=== PATIENT | female | born 1950 | race Caucasian/White ===

== ENCOUNTER → 2016-03-05 | Outpatient (CLI) | payer OTHER ==
[~2016-03-05] MED LIST: LIOT1TAB10 PO
== END | disposition home or self-care (01) ==
LOC: C.MAMM 10:04
PROVIDERS: ATTEND Family Medicine
DX: N95.8 Other specified menopausal and perimenopausal disorders (principal); E03.9 Hypothyroidism, unspecified; K90.0 Celiac disease

== ENCOUNTER 2016-05-14 09:21 | Emergency (ER) | payer OTHER ==
[~2016-05-14] VITALS: Ht 157.5 cm; Wt 56.4 kg
[2016-05-14 09:25] VITALS: TEMP 37; Ht 157.5 cm; Wt 56.4 kg
[2016-05-14] MEDS ORDERED: LIOT1TAB10 PO (09:47)
[2016-05-14] MEDS ORDERED: SODIUM CHLORIDE 0.9% 1000ML 1,000 ML IV STA (10:02)
[2016-05-14 10:23] LABS: BASO % 0.1 %; BASO ABS # 0.01 K/uL (0-0.2); COMPLETE YES; EOS % 0.4 %; HEMATOCRIT 41.5 % (37-47); IG% 0.3 %; LYMPH % 11.7 %; LYMPH ABS # 1.34 K/uL (1.2-3.4); MEAN CELL VOLUME 84.3 fL (80-100); MEAN CORPUSCULAR HEMOGLOBIN 28.3 pg (25-34); MEAN CORPUSCULAR HGB CONC 33.5 g/dl (32-36); MEAN PLATELET VOLUME 10.3 fL (7.4-10.4); MONO % 6.7 %; NEUT % 80.8 %; PLATELET COUNT 260 K/uL (130-400); RED BLOOD COUNT 4.92 M/uL (4.2-5.4); WHITE BLOOD COUNT 11.42 K/uL (4.8-10.8)
[2016-05-14 10:30] LABS: CREATININE 0.67 mg/dl (0.60-1.20); POTASSIUM 3.4 mmol/L (3.5-5.1)
[2016-05-14 10:33] LABS: ALB/GLOB RATIO 0.9 (0.9-2)
--- NOTE | 2016-05-14 12:00 | EMERGENCY ROOM VISIT NOTE ---
ED Visit Note First contact with patient: 09:43 I have seen and examined this patient with Thea Lehman and generally agree with the treatment plan as discussed. Current/Historical Medications Scheduled Liothyronine Sodium (Cytomel), 75 MCG PO DAILY Allergies Uncoded Allergies: TEGRETOL, IODINE (Allergy, Unknown, 04/08/02) Vital Signs Date Time Temp Pulse Resp B/P Pulse Ox O2 Delivery O2 Flow Rate FiO2 05/14/16 10:42 84 16 153/110 99 Room Air 05/14/16 09:25 37.0 98 20 171/102 98 Room Air Laboratory Results 05/14/16 09:40 Red Blood Count 4.92, Mean Corpuscular Volume 84.3, Mean Corpuscular Hemoglobin 28.3, Mean Corpuscular Hemoglobin Concent 33.5, Mean Platelet Volume 10.3, Neutrophils (%) (Auto) 80.8, Lymphocytes (%) (Auto) 11.7, Monocytes (%) (Auto) 6.7, Eosinophils (%) (Auto) 0.4, Basophils (%) (Auto) 0.1, Neutrophils # (Auto) 9.23, Lymphocytes # (Auto) 1.34, Monocytes # (Auto) 0.76, Eosinophils # (Auto) 0.05, Basophils # (Auto) 0.01 05/14/16 09:40 Test 05/14/16 09:40 White Blood Count 11.42 K/uL (4.8-10.8) Red Blood Count 4.92 M/uL (4.2-5.4) Hemoglobin 13.9 g/dL (12.0-16.0) Hematocrit 41.5 % (37-47) Mean Corpuscular Volume 84.3 fL (80-100) Mean Corpuscular Hemoglobin 28.3 pg (25-34) Mean Corpuscular Hemoglobin Concent 33.5 g/dl (32-36) Platelet Count 260 K/uL (130-400) Mean Platelet Volume 10.3 fL (7.4-10.4) Neutrophils (%) (Auto) 80.8 % Lymphocytes (%) (Auto) 11.7 % Monocytes (%) (Auto) 6.7 % Eosinophils (%) (Auto) 0.4 % Basophils (%) (Auto) 0.1 % Neutrophils # (Auto) 9.23 K/uL (1.4-6.5) Lymphocytes # (Auto) 1.34 K/uL (1.2-3.4) Monocytes # (Auto) 0.76 K/uL (0.11-0.59) Eosinophils # (Auto) 0.05 K/uL (0-0.5) Basophils # (Auto) 0.01 K/uL (0-0.2) RDW Standard Deviation 40.7 fL (36.4-46.3) RDW Coefficient of Variation 13.3 % (11.5-14.5) Immature Granulocyte % (Auto) 0.3 % Immature Granulocyte # (Auto) 0.03 K/uL (0.00-0.02) Anion Gap 13.0 mmol/L (3-11) Est Creatinine Clear Calc Drug Dose 64.5 ml/min Estimated GFR () 105.4 Estimated GFR (Non- 91.0 BUN/Creatinine Ratio 33.0 (10-20) Calcium Level 10.0 mg/dl (8.5-10.1) Total Bilirubin 1.0 mg/dl (0.2-1) Aspartate Amino Transf (AST/SGOT) 22 U/L (15-37) Alanine Aminotransferase (ALT/SGPT) 31 U/L (12-78) Alkaline Phosphatase 68 U/L (45-117) Total Protein 7.7 gm/dl (6.4-8.2) Albumin 3.6 gm/dl (3.4-5.0) Globulin 4.1 gm/dl (2.5-4.0) Albumin/Globulin Ratio 0.9 (0.9-2) Lipase 82 U/L (73-393) Medications Administered Medications (Trade) Dose Ordered Sig/Catina Route Start Time Stop Time Status Last Admin Dose Admin Sodium Chloride (Nss 1000ml) 1,000 ml @ 999 mls/hr Q1H1M STAT IV 05/14/16 10:02 05/14/16 11:02 DC 05/14/16 10:02 999 MLS/HR Departure Information Referrals Leon Cohen M.D. (PCP) Patient Instructions My [facility]
[2016-05-14] MEDS ORDERED: MoRPHine SULFATE 4 MG/ML 1 ML CARP\\VIAL IV STA (13:21)
--- NOTE | 2016-05-14 14:25 | EMERGENCY ROOM VISIT NOTE ---
History First contact with patient: 09:43 Chief Complaint: RECTAL BLEEDING Stated Complaint: RECTAL BLEEDING Nursing Triage Summary: PT HERE WITH RECTAL BLEEDING SINCE FRIDAY INTERMITTENTLY. PT STATES HAVING SOME LOW ABD PAINS. PT STATES BLOOD IS BRIGHT RED MIXED WITH STOOL, INITIAL CLOTS PT STATES FEELING WEAK History of Present Illness The patient is a 65 year old female who presents to the Emergency Room with complaints of rectal bleeding, diarrhea and abdominal pain. The patient reports that 2 days ago, she developed a sudden urgency to have a bowel movement. She states that when she did have a bowel movement, there was a clot of blood mixed in with the stool. She states that she had several more episodes of diarrhea that day, which then subsided. She reports that yesterday , she did not have a bowel movement. She states that today, her diarrhea returned and she has had pain with her bowel movements. She also has had a small amount of bright red blood mixed in with her stools. She states that her legs feel very weak and she has intermittent pain in her lower abdomen. She rates her overall discomfort a 1/10 at this time but states the pain worsens at times. She denies any previous episodes of similar symptoms. She does report a history of celiac disease but denies any other history of abdominal surgery. The patient's only recent antibiotic use was one dose of doxycycline earlier this month. She denies any recent travel. She does report she ate raw sushi a few days ago, prior to the onset of symptoms. She denies any unusual water sources. She denies nausea, vomiting, fevers/chills or urinary symptoms. Review of Systems A complete 10-point Review of Systems was discussed with the patient, with pertinent positives and negatives listed in the History of Present Illness. All remaining Review of Systems questions can be considered negative unless otherwise specified. Social History Smoking Status: Never Smoker Current/Historical Medications Scheduled Liothyronine Sodium (Cytomel), 75 MCG PO DAILY Allergies Uncoded Allergies: TEGRETOL, IODINE (Allergy, Unknown, 04/08/02) Physical Exam Vital Signs Date Time Temp Pulse Resp B/P Pulse Ox O2 Delivery O2 Flow Rate FiO2 05/14/16 16:16 82 18 158/80 98 05/14/16 15:15 77 20 160/92 96 Room Air 05/14/16 13:39 82 18 178/106 97 Room Air 05/14/16 12:28 85 157/101 99 Room Air 05/14/16 10:42 84 16 153/110 99 Room Air 05/14/16 09:25 37.0 98 20 171/102 98 Room Air Physical Exam VITALS: Vitals are noted on the nurse's note and reviewed by myself. Vital signs stable. GENERAL: This is a 65-year-old female, in no acute distress, nondiaphoretic, well-developed well-nourished. SKIN: Capillary reflex less than 2 seconds. HEENT: Normocephalic. PERRLA. EOMI. Nares patent. Mucous membranes moist. Neck is supple without nuchal rigidity. HEART: Regular rate and rhythm without murmurs gallops or rubs. LUNGS: Clear to auscultation bilaterally without wheezes, rales or rhonchi. ABDOMEN: Positive bowel sounds x 4. Soft, mild tenderness of the left lower quadrant. No guarding or rebound tenderness. RECTAL: Slightly heme positive light brown stool. Normal rectal tone. NEURO: Patient was alert and oriented to person place and time. Medical Decision & Procedures ER Provider Diagnostic Interpretation: ABDOMEN AND PELVIS CT WITH ORAL CONTRAST CT DOSE: 263.21 mGy.cm HISTORY: Pain ll. Pain, diarrhea, rectal bleeding TECHNIQUE: Multiaxial CT images of the abdomen and pelvis were performed following the use of oral contrast. COMPARISON STUDY: None. FINDINGS: Lung bases are clear.. abdomen and pelvis compromise as amount of oral contrast is restricted. Overall configuration of liver is unremarkable. Gallbladder is negative for distention. There is a 14 x 7 cm calcification lower pole left kidney. Kidneys negative for hydronephrosis or obstructing urinary tract calculus. Several upper abdominal varicosities are present. Pancreas is fatty replaced. Bowel pattern is considered nonobstructive. Bladder is midline. There is a somewhat serpiginous fibroid-type uterus. Multiple calcified fibroids are present throughout. There appears to be a component of rectal wall thickening circumferentially. There is mild perirectal infiltrative change. There is moderate infiltrative change to the levator sling bilaterally and to lesser extent presacral soft tissues. Colonoscopy is suggested to exclude a nonspecific proctitis or inflammatory process. IMPRESSION: 1. Limited exam as the amount of oral contrast is limited and shows only partial opacification of the colon. 2. Findings suggestive of potential annular lesion of the low sigmoid and rectal regions 3. This associated with perirectal infiltrative change, mild infiltrative change of the levator sling, as well as presacral soft tissues. 4. Colonoscopy is suggested to exclude an inflammatory or neoplastic process. 5. The study is otherwise negative within the limitations of limited oral and absent intravenous contrast enhancement Laboratory Results 05/14/16 09:40 Red Blood Count 4.92, Mean Corpuscular Volume 84.3, Mean Corpuscular Hemoglobin 28.3, Mean Corpuscular Hemoglobin Concent 33.5, Mean Platelet Volume 10.3, Neutrophils (%) (Auto) 80.8, Lymphocytes (%) (Auto) 11.7, Monocytes (%) (Auto) 6.7, Eosinophils (%) (Auto) 0.4, Basophils (%) (Auto) 0.1, Neutrophils # (Auto) 9.23, Lymphocytes # (Auto) 1.34, Monocytes # (Auto) 0.76, Eosinophils # (Auto) 0.05, Basophils # (Auto) 0.01 05/14/16 09:40 Test 05/14/16 09:40 05/14/16 15:15 White Blood Count 11.42 K/uL (4.8-10.8) Red Blood Count 4.92 M/uL (4.2-5.4) Hemoglobin 13.9 g/dL (12.0-16.0) Hematocrit 41.5 % (37-47) Mean Corpuscular Volume 84.3 fL (80-100) Mean Corpuscular Hemoglobin 28.3 pg (25-34) Mean Corpuscular Hemoglobin Concent 33.5 g/dl (32-36) Platelet Count 260 K/uL (130-400) Mean Platelet Volume 10.3 fL (7.4-10.4) Neutrophils (%) (Auto) 80.8 % Lymphocytes (%) (Auto) 11.7 % Monocytes (%) (Auto) 6.7 % Eosinophils (%) (Auto) 0.4 % Basophils (%) (Auto) 0.1 % Neutrophils # (Auto) 9.23 K/uL (1.4-6.5) Lymphocytes # (Auto) 1.34 K/uL (1.2-3.4) Monocytes # (Auto) 0.76 K/uL (0.11-0.59) Eosinophils # (Auto) 0.05 K/uL (0-0.5) Basophils # (Auto) 0.01 K/uL (0-0.2) RDW Standard Deviation 40.7 fL (36.4-46.3) RDW Coefficient of Variation 13.3 % (11.5-14.5) Immature Granulocyte % (Auto) 0.3 % Immature Granulocyte # (Auto) 0.03 K/uL (0.00-0.02) Anion Gap 13.0 mmol/L (3-11) Est Creatinine Clear Calc Drug Dose 64.5 ml/min Estimated GFR () 105.4 Estimated GFR (Non- 91.0 BUN/Creatinine Ratio 33.0 (10-20) Calcium Level 10.0 mg/dl (8.5-10.1) Total Bilirubin 1.0 mg/dl (0.2-1) Aspartate Amino Transf (AST/SGOT) 22 U/L (15-37) Alanine Aminotransferase (ALT/SGPT) 31 U/L (12-78) Alkaline Phosphatase 68 U/L (45-117) Total Protein 7.7 gm/dl (6.4-8.2) Albumin 3.6 gm/dl (3.4-5.0) Globulin 4.1 gm/dl (2.5-4.0) Albumin/Globulin Ratio 0.9 (0.9-2) Lipase 82 U/L (73-393) Urine Color YELLOW Urine Appearance CLOUDY (CLEAR) Urine pH 5.5 (4.5-7.5) Urine Specific Bath 1.012 (1.000-1.030) Urine Protein NEG (NEG) Urine Glucose (UA) NEG (NEG) Urine Ketones 3+ (NEG) Urine Occult Blood TRACE (NEG) Urine Nitrite NEG (NEG) Urine Bilirubin NEG (NEG) Urine Urobilinogen NEG (NEG) Urine Leukocyte Esterase LARGE (NEG) Urine WBC (Auto) >30 /hpf (0-5) Urine RBC (Auto) 0-4 /hpf (0-4) Urine Hyaline Casts (Auto) 10-30 /lpf (0-5) Urine Epithelial Cells (Auto) >30 /lpf (0-5) Urine Bacteria (Auto) 1+ (NEG) Urine Renal Epithelial Cells /lpf (0-5) Urine Mucus PRESENT (NONE PRSENT) Date/Time Source Procedure Growth Status 05/14/16 14:00 Stool WBC Smear - Final Complete Medications Administered Medications (Trade) Dose Ordered Sig/Catina Route Start Time Stop Time Status Last Admin Dose Admin Sodium Chloride (Nss 1000ml) 1,000 ml @ 999 mls/hr Q1H1M STAT IV 05/14/16 10:02 05/14/16 11:02 DC 05/14/16 10:02 999 MLS/HR Morphine Sulfate (MoRPHine SULFATE INJ) 4 mg NOW STAT IV 05/14/16 13:21 05/14/16 13:22 DC 05/14/16 13:36 4 MG Medical Decision Differential diagnosis includes polyp, malignancy, diverticulitis, colitis, among others. The patient was evaluated as above. Labs were drawn and IV access was obtained. Imaging studies were performed and read by radiology as above. The patient was medicated with 4 mg morphine IV and 1 L normal saline solution. The patient was reassessed multiple times during their stay in the emergency department and remained in stable condition. The patient is a 65-year-old female who presents today complaining of rectal bleeding and occasional lower abdominal pain. Labs revealed mild leukocytosis with no concerning anemia. Urinalysis was suggestive of infection versus contamination and will be sent for culture. Stool studies were obtained and cultures pending. The patient has a significant allergy to IV contrast, a CT scan was performed with only oral contrast at the recommendation of the dictaphone technician. This was read by radiology and was concerning for a possible annular lesion. They recommended colonoscopy to differentiate between malignancy versus inflammatory findings. The patient was informed of these findings. I did speak with Gary Vora, however the patient is apparently now a patient of [facility]. The information was given to Dr. Salinas, who will arrange follow up. The patient was instructed to return here sooner if she has worsening of her symptoms or develops any new/concerning symptoms. Based on the patient's presentation, lab results, and imaging studies, I feel the patient is stable for outpatient treatment. The patient's case was reviewed with Dr. Francisco, ED attending physician, who agreed with my assessment and treatment plan. Discharge instructions were reviewed with the patient. The patient verbalized understanding of my assessment and treatment plan and was discharged home in good condition. Impression Primary Impression: GI bleed Departure Information Dispostion Home / Self-Care Condition GOOD Referrals Leon Cohen M.D. (PCP) Yeyo Salinas M.D. Patient Instructions My [facility] Additional Instructions Call Dr. Salinas's office on morning if you do not hear from them. For pain control, you can use the following [id number] medicines (if >12 yo): - Regular strength (325mg/tab) Tylenol (acetaminophen) 2 tabs every 4-6 hours as needed. Do not exceed 12 tablets in a 24 hour period. Avoid taking more than 4 grams (4000 mg) of Tylenol per day. This includes any other sources of acetaminophen you may take on a regular basis. - Regular strength (200 mg/tab) Advil (ibuprofen) 1-2 tabs every 4-6 hours as needed. Do not exceed a dose of 3200 mg per day. As with any visit to the emergency Department, you should follow-up with your primary care provider. Return to the emergency department with worsening pain, larger amounts of blood , vomiting or any other new/concerning symptoms.
--- NOTE | 2016-05-14 14:32 | DIAGNOSTIC IMAGING REPORT ---
ABDOMEN AND PELVIS CT WITH ORAL CONTRAST CT DOSE: 263.21 mGy.cm HISTORY: Pain ll. Pain, diarrhea, rectal bleeding TECHNIQUE: Multiaxial CT images of the abdomen and pelvis were performed following the use of oral contrast. COMPARISON STUDY: None. FINDINGS: Lung bases are clear.. abdomen and pelvis compromise as amount of oral contrast is restricted. Overall configuration of liver is unremarkable. Gallbladder is negative for distention. There is a 14 x 7 cm calcification lower pole left kidney. Kidneys negative for hydronephrosis or obstructing urinary tract calculus. Several upper abdominal varicosities are present. Pancreas is fatty replaced. Bowel pattern is considered nonobstructive. Bladder is midline. There is a somewhat serpiginous fibroid-type uterus. Multiple calcified fibroids are present throughout. There appears to be a component of rectal wall thickening circumferentially. There is mild perirectal infiltrative change. There is moderate infiltrative change to the levator sling bilaterally and to lesser extent presacral soft tissues. Colonoscopy is suggested to exclude a nonspecific proctitis or inflammatory process. IMPRESSION: 1. Limited exam as the amount of oral contrast is limited and shows only partial opacification of the colon. 2. Findings suggestive of potential annular lesion of the low sigmoid and rectal regions 3. This associated with perirectal infiltrative change, mild infiltrative change of the levator sling, as well as presacral soft tissues. 4. Colonoscopy is suggested to exclude an inflammatory or neoplastic process. 5. The study is otherwise negative within the limitations of limited oral and absent intravenous contrast enhancement Electronically signed by: Mikey Stauffer M.D. 05/14/2016 2:31 PM Dictated Date/Time: 05/14/2016 2:25 PM
[2016-05-14 15:28] LABS: URINE APPEARANCE CLOUDY (CLEAR); URINE BILIRUBIN NEG (NEG); URINE COLOR YELLOW; URINE EPITHELIAL CELL AUTO >30 /lpf (0-5); URINE NITRITE NEG (NEG); URINE PH 5.5 (4.5-7.5); URINE SPECIFIC GRAVITY 1.012 (1.000-1.030); UROBILINOGEN NEG (NEG)
[2016-05-14 15:34] LABS: MANUAL MICROSCOPIC REQUIRED? NO; REVIEW REQ? YES
[2016-05-14 15:47] LABS: URINE MUCUS PRESENT (NONE PRSENT)
[2016-05-14 15:48] LABS: ZZUR CULT IF INDIC CLEAN CATCH YES
[2016-05-14 16:16] VITALS: BP 158/80; PULSE 82; O2SAT 98
== END 2016-05-14 16:17 | disposition home or self-care (01) ==
LOC: C.EDB 09:28
DX: K92.2 Gastrointestinal hemorrhage, unspecified (principal); R10.9 Unspecified abdominal pain; Z79.899 Other long term (current) drug therapy

== ENCOUNTER 2021-06-17 03:30 | Observation (INO) ==
[2021-06-17] MEDS ORDERED: SODIUM CHLORIDE 0.9% 1000ML 1,000 ML IV SCH ×2 (04:00→04:30)
[2021-06-17 04:22] LABS: Basophils # (auto) 0.02 K/uL (0-0.2); Basophils % (auto) 0.3 %; Eosinophils % (auto) 3.1 %; Hematocrit (blood only) 41.6 % (37-47); Hemoglobin 14.2 g/dL (12.0-16.0); Immature Granulocytes # (auto) 0.01 K/uL (0.00-0.02); Immature Granulocytes % (auto) 0.2 %; Mean Corpuscular Hemoglobin 29.2 pg (25-34); Mean Corpuscular Hgb Conc 34.1 g/dL (32-36); Mean Corpuscular Volume 85.4 fL (80-100); Monocytes % (auto) 9.2 %; Neutrophils # (auto) 2.69 K/uL (1.4-6.5); Neutrophils % (auto) 41.2 %; Platelet Count 275 K/uL (130-400); RDW Coefficient of Variation 13.8 % (11.5-14.5); RDW Standard Deviation 43.4 fL (36.4-46.3); Red Blood Count 4.87 M/uL (4.2-5.4); White Blood Count 6.52 K/uL (4.8-10.8)
--- NOTE | 2021-06-17 04:32 | Emergency Department Note ---
History of Present Illness General Chief complaint: Abdominal Pain Stated complaint: ABD PAIN,NERVE PAIN Time Seen by Provider: 06/17/21 03:41 Source: patient Mode of arrival: ambulatory Limitations: no limitations History of Present Illness Provider complaint: Abdominal pain, tooth ache Onset (ago): week(s) Maximum Pain Intensity: 10 Treatments prior to arrival: none This is a 70-year-old female presents emergency department complaining of toothache, abdominal pain, and recent tick bite. She states over the last year she has been dealing with a tooth that needed a repair and root canal. She states the pain been worse recently and she finally has an appointment scheduled for June 27 with someone in [place]. Patient states over the last several weeks she has also had intermittent abdominal pain and bloating. She states recently in the last several days she also noticed a tick bite to her abdomen and feels increased pain in this region in addition. Patient states she does have a history of thyroid disease and takes medication. Patient states she not taking any other medication for pain. She has not sought any treatment for her abdominal discomfort. Patient states her bowel movements alternate between diarrhea and constipation. She denies any change in urine, fevers or chills, recent cough or cold symptoms. Patient denies any dietary changes or change in activity. Patient states she is supposed to be taking medication for blood pressure but does not. Patient states she is concerned she "has blood poisoning". Pt seen during a time of high acuity and national emergency pandemic while wearing PPE. Home Medications Medication Instructions Recorded Confirmed Type liothyronine 25 mcg tablet 25 mcg PO TID 06/16/18 06/17/21 History (Cytomel) Bound Mineral 1 tab PO QAM 06/17/21 06/17/21 History Cardio-Plus 3 tab PO QAM 06/17/21 06/17/21 History Glutathione Capsule 1 cap PO QAM 06/17/21 06/17/21 History Lugol's Oil 1 cap PO QAM 06/17/21 06/17/21 History Nitric Oxide Capsule 2 cap PO QAM 06/17/21 06/17/21 History Vitamin D3 Drops 2 drp PO QAM 06/17/21 06/17/21 History ascorbic acid (vitamin C) 1,000 mg 0 mg PO QAM 06/17/21 06/17/21 History tablet (Vitamin C) cyanocobalamin (vitamin B-12) 0 mcg PO QAM 06/17/21 06/17/21 History 1,000 mcg tablet (Vitamin B-12) magnesium 250 mg tablet 0 mg PO QAM 06/17/21 06/17/21 History vitamin B complex 1 tab PO QAM 06/17/21 06/17/21 History Allergies Allergy/AdvReac Type Severity Reaction Status Date / Time gluten Allergy Hives Unverified 06/17/21 06:49 ibuprofen AdvReac Hypertensio Unverified 06/17/21 06:49 n TEGRETOL, IODINE Allergy Severe Anaphylaxis Uncoded 06/17/21 06:49 Past Med/Surg History Medical History (Updated 06/18/21 @ 07:22 by Lori Blanco DO) History of breast cancer s/p lumpectomy History of Cinda thyroiditis Hypertension Tonsillitis Surgical History (Updated 06/17/21 @ 06:37 by Sulema Maier DO) 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 History of lumpectomy Family History Other No significant family history Social History (Updated 06/17/21 @ 06:38 by Sulema Maier DO) Smoking Status: Never smoker Second Hand Exposure: No; Hx Alcohol Use: No Hx Substance Use: No Preferred Language: Ethiopian Communication Ability: Effective 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 Required: No Beliefs That Will Affect Care: None Current Living Situation: Spouse Feels Safe at Home: Yes Assistive Devices: None Review of Systems A total of 10 systems reviewed and were otherwise negative All systems reviewed & are unremarkable except as noted in HPI & below Physical Exam Vital Signs Vital Signs - 24 hr 06/17/21 03:35 06/17/21 04:06 06/17/21 05:30 Temperature 36.0 C L Temperature Source Temporal Artery Scan Pulse Rate 101 H Pulse Rate [Finger] 65 Pulse Rate from SpO2 Sensor Respiratory Rate 18 18 Respiratory Effort / Characteristics Non-Labored Spontaneous Non-Labored Spontaneous Respiratory Depth Normal Respiratory Pattern Regular Blood Pressure 202/123 H Blood Pressure [Right Arm] 201/116 H Blood Pressure Mean 149 Blood Pressure Mean [Right Arm] 144 Pulse Oximetry 98 99 98 Oxygen Delivery Method Room Air Room Air Room Air Sepsis Recent Fever Within 48 Hours No Sepsis New/Unexplained Change in Mental Status No Sepsis Action Taken by Nursing No Action Required 06/17/21 06:00 06/17/21 06:10 06/17/21 06:21 Temperature Temperature Source Pulse Rate 65 63 59 L Pulse Rate [Finger] Pulse Rate from SpO2 Sensor 66 61 Respiratory Rate 20 16 17 Respiratory Effort / Characteristics Respiratory Depth Respiratory Pattern Blood Pressure 191/112 H 206/121 H 198/103 H Blood Pressure [Right Arm] Blood Pressure Mean 138 149 134 Blood Pressure Mean [Right Arm] Pulse Oximetry 98 98 Oxygen Delivery Method Sepsis Recent Fever Within 48 Hours Sepsis New/Unexplained Change in Mental Status Sepsis Action Taken by Nursing 06/17/21 06:30 06/17/21 06:40 Temperature Temperature Source Pulse Rate 73 67 Pulse Rate [Finger] Pulse Rate from SpO2 Sensor Respiratory Rate 18 27 H Respiratory Effort / Characteristics Respiratory Depth Respiratory Pattern Blood Pressure 206/124 H 172/101 H Blood Pressure [Right Arm] Blood Pressure Mean 151 124 Blood Pressure Mean [Right Arm] Pulse Oximetry Oxygen Delivery Method Sepsis Recent Fever Within 48 Hours Sepsis New/Unexplained Change in Mental Status Sepsis Action Taken by Nursing GENERAL: alert, well appearing, well nourished, no distress, non-toxic EYE EXAM: normal conjunctiva, PERRL and EOM's grossly intact OROPHARYNX: no exudate, no erythema, lips, buccal mucosa, and tongue normal and mucous membranes are moist NECK: supple, no nuchal rigidity, no adenopathy, non-tender LUNGS: Clear to auscultation. Normal chest wall mechanics, no w/r/r HEART: no murmurs, S1 normal and S2 normal ABDOMEN: abdomen soft, non-tender, normo-active bowel sounds, no masses, no rebound or guarding. BACK: Back is symmetrical on inspection and there is no deformity, no midline tenderness, no CVA tenderness. SKIN: no rashes and no bruising UPPER EXTREMITIES: upper extremities are grossly normal. FROM, nml pulses b/l. LOWER EXTREMITIES: No pitting edema. FROM, nml pulses b/l. NEURO EXAM: Normal sensorium, cranial nerves II-XII grossly intact, normal speech, no gross weakness of arms, no gross weakness of legs. Gross sensation intact. Course Administered Medications Doxycycline Hyclate (Doxycycline Hyclate 100 Mg Cap) 100 mg PO BID [facility]; Protocol Stop: 06/27/21 20:59 Last Admin: 06/17/21 20:49 Dose: 100 mg Documented by: [id number] Hydralazine HCl (Hydralazine 10 Mg Tab) 10 mg PO Q6H PRN PRN Reason: hypertension Stop: 07/17/21 09:04 Last Admin: 06/17/21 19:54 Dose: 10 mg Documented by: [id number] Admin: 06/17/21 09:28 Dose: 10 mg Documented by: [id number] Hydrochlorothiazide (Hydrochlorothiazide 25 Mg Tab) 25 mg PO QAM [facility] Stop: 07/17/21 09:29 Last Admin: 06/17/21 09:28 Dose: 25 mg Documented by: [id number] Liothyronine Sodium (Liothyronine Sodium 25 Mcg Tab) 25 mcg PO QPM [facility] Stop: 07/17/21 20:59 Last Admin: 06/17/21 20:50 Dose: Not Given Documented by: [id number] Liothyronine Sodium (Liothyronine Sodium 25 Mcg Tab) [facility] [place] Stop: 07/17/21 09:29 Last Admin: 06/17/21 11:11 Dose: Not Given Documented by: [id number] Ondansetron HCl (Ondansetron Inj 2 Mg/Ml 2 Ml Vial) 4 mg IV Q6H PRN PRN Reason: Nausea Stop: 07/17/21 09:04 Last Admin: 06/17/21 21:32 Dose: 4 mg Documented by: [id number] Discontinued Medications Hydralazine HCl (Hydralazine Hcl 25 Mg Tab) 25 mg PO NOW STA Stop: 06/17/21 06:12 Last Admin: 06/17/21 06:20 Dose: 25 mg Documented by: [id number] Sodium Chloride (Nss 1000ml) 1,000 mls @ 999 mls/hr IV .Q1H1M [facility] Stop: 06/17/21 05:00 Last Infusion: 06/17/21 04:57 Dose: 0 mls/hr Documented by: [id number] Admin: 06/17/21 03:59 Dose: 999 mls/hr Documented by: [id number] Sodium Chloride (Nss 1000ml) 1,000 mls @ 125 mls/hr IV .Q8H [facility] Stop: 07/17/21 04:29 Last Infusion: 06/17/21 10:09 Dose: 0 mls/hr Documented by: [id number] Infusion: 06/17/21 08:31 Dose: 0 mls/hr Documented by: [id number] Admin: 06/17/21 04:51 Dose: 125 mls/hr Documented by: [id number] Doxycycline Hyclate 100 mg/ (Dextrose) 110 mls @ 50 mls/hr IV NOW STA Stop: 06/17/21 07:29 Last Infusion: 06/17/21 08:31 Dose: 0 mls/hr Documented by: [id number] Admin: 06/17/21 06:20 Dose: 50 mls/hr Documented by: [id number] Labetalol HCl (Labetalol Hcl Iv 5 Mg/Ml 20ml) 5 mg IV NOW STA Stop: 06/17/21 04:38 Last Admin: 06/17/21 04:51 Dose: 5 mg Documented by: [id number] Cosigned by: [id number] Labetalol HCl (Labetalol Hcl Iv 5 Mg/Ml 20ml) 5 mg IV NOW STA Stop: 06/17/21 05:26 Last Admin: 06/17/21 05:31 Dose: 5 mg Documented by: [id number] Cosigned by: [id number] Nifedipine (Nifedipine Extended Rel 30 Mg Tabcr) 60 mg PO NOW STA Stop: 06/17/21 08:28 Last Admin: 06/17/21 09:29 Dose: 60 mg Documented by: [id number] Potassium Chloride (Potassium Chloride Crtab 20 Meq Tabcr) 40 meq PO NOW STA Stop: 06/17/21 05:24 Last Admin: 06/17/21 05:32 Dose: 40 meq Documented by: [id number] Medical Decision Making Differential Diagnosis Differential diagnoses includes but is not limited to gastritis, peptic ulcer disease, GERD, gallbladder disease, pancreatitis, small bowel obstruction, acute coronary syndrome, pericarditis, ischemic bowel, irritable bowel disease, irritable bowel syndrome, appendicitis, diverticulitis, malignancy, hernia, urinary tract infection, torsion, [/ectopic (if female)], perforation, trauma, infectious. Medical Records Attestation: I reviewed the patient's medical records. Home Medications Current Medication List: was personally reviewed by me Laboratory Data Attestation: I reviewed the patient's lab results. Result diagrams: 06/17/21 03:50 06/17/21 03:50 Lab Results 06/17/21 06/17/21 06/17/21 Range/Units 03:28 03:50 03:50 WBC 6.52 (4.8-10.8) K/uL RBC 4.87 (4.2-5.4) M/uL Hgb 14.2 (12.0-16.0) g/dL Hct 41.6 (37-47) % MCV 85.4 (80-100) fL MCH 29.2 (25-34) pg MCHC 34.1 (32-36) g/dL RDW Std Deviation 43.4 (36.4-46.3) fL RDW Coeff of Kyle 13.8 (11.5-14.5) % Plt Count 275 (130-400) K/uL MPV 10.0 (7.4-10.4) fL Immature Gran % (Auto) 0.2 % Neut % (Auto) 41.2 % Lymph % (Auto) 46.0 % Haakon % (Auto) 9.2 % Eos % (Auto) 3.1 % Baso % (Auto) 0.3 % Neut # (Auto) 2.69 (1.4-6.5) K/uL Lymph # (Auto) 3.00 (1.2-3.4) K/uL Haakon # (Auto) 0.60 H (0.11-0.59) K/uL Eos # (Auto) 0.20 (0-0.5) K/uL Baso # (Auto) 0.02 (0-0.2) K/uL Immature Gran # (Auto) 0.01 (0.00-0.02) K/uL Sodium (136-145) mmol/L Potassium (3.5-5.1) mmol/L Chloride (98-107) mmol/L Carbon Dioxide (21-32) mmol/L Anion Gap (3-11) BUN (6-23) mg/dl Creatinine (0.6-1.2) mg/dl Est Cr Clr Drug Dosing ml/min Est GFR ( Amer) ml/min Est GFR (Non-Af Amer) ml/min BUN/Creatinine Ratio (10-20) Glucose (70-99(Fasting)) mg/dl Lactate (0.4-2.0) mmol/L Calcium (8.5-10.1) mg/dl Magnesium (1.7-2.4) mg/dl Total Bilirubin (0.2-1.0) mg/dl AST (13-39) U/L ALT (7-52) U/L Alkaline Phosphatase (34-104) U/L Troponin I High Sens Cancelled Total Protein (6.0-8.3) gm/dl Albumin (3.4-5.0) gm/dl Globulin (2.5-4.0) gm/dl Albumin/Globulin Ratio (0.9-2) Urine Color Urine Appearance (Clear) Urine pH (4.5-7.5) Ur Specific Simpson (1.000-1.030) Urine Protein (Negative) Urine Glucose (UA) (Negative) Urine Ketones (Negative) Urine Blood (Negative) Urine Nitrite (Negative) Urine Bilirubin (Negative) Urine Urobilinogen (Negative) Ur Leukocyte Esterase (Negative) Lyme Disease IgG Ab (Negative) Lyme Disease IgM Ab (Negative) SARS-CoV-2, RNA, NAAT NEGATIVE (NEGATIVE) 06/17/21 06/17/21 06/17/21 Range/Units 03:50 03:50 04:03 WBC (4.8-10.8) K/uL RBC (4.2-5.4) M/uL Hgb (12.0-16.0) g/dL Hct (37-47) % MCV (80-100) fL MCH (25-34) pg MCHC (32-36) g/dL RDW Std Deviation (36.4-46.3) fL RDW Coeff of Kyle (11.5-14.5) % Plt Count (130-400) K/uL MPV (7.4-10.4) fL Immature Gran % (Auto) % Neut % (Auto) % Lymph % (Auto) % Haakon % (Auto) % Eos % (Auto) % Baso % (Auto) % Neut # (Auto) (1.4-6.5) K/uL Lymph # (Auto) (1.2-3.4) K/uL Haakon # (Auto) (0.11-0.59) K/uL Eos # (Auto) (0-0.5) K/uL Baso # (Auto) (0-0.2) K/uL Immature Gran # (Auto) (0.00-0.02) K/uL Sodium 140 (136-145) mmol/L Potassium 3.3 L (3.5-5.1) mmol/L Chloride 104 (98-107) mmol/L Carbon Dioxide 28 (21-32) mmol/L Anion Gap 8 (3-11) BUN 22 (6-23) mg/dl Creatinine 0.72 (0.6-1.2) mg/dl Est Cr Clr Drug Dosing 53.3 ml/min Est GFR ( Amer) 97.0 ml/min Est GFR (Non-Af Amer) 83.7 ml/min BUN/Creatinine Ratio 30.6 H (10-20) Glucose 96 (70-99(Fasting)) mg/dl Lactate 0.7 (0.4-2.0) mmol/L Calcium 9.8 (8.5-10.1) mg/dl Magnesium 2.4 (1.7-2.4) mg/dl Total Bilirubin 0.6 (0.2-1.0) mg/dl AST 36 (13-39) U/L ALT 41 (7-52) U/L Alkaline Phosphatase 83 (34-104) U/L Troponin I High Sens 23.7 H Total Protein 7.7 (6.0-8.3) gm/dl Albumin 4.6 (3.4-5.0) gm/dl Globulin 3.1 (2.5-4.0) gm/dl Albumin/Globulin Ratio 1.5 (0.9-2) Urine Color Urine Appearance (Clear) Urine pH (4.5-7.5) Ur Specific Simpson (1.000-1.030) Urine Protein (Negative) Urine Glucose (UA) (Negative) Urine Ketones (Negative) Urine Blood (Negative) Urine Nitrite (Negative) Urine Bilirubin (Negative) Urine Urobilinogen (Negative) Ur Leukocyte Esterase (Negative) Lyme Disease IgG Ab Negative (Negative) Lyme Disease IgM Ab Positive A (Negative) SARS-CoV-2, RNA, NAAT (NEGATIVE) 06/17/21 Range/Units 05:15 WBC (4.8-10.8) K/uL RBC (4.2-5.4) M/uL Hgb (12.0-16.0) g/dL Hct (37-47) % MCV (80-100) fL MCH (25-34) pg MCHC (32-36) g/dL RDW Std Deviation (36.4-46.3) fL RDW Coeff of Kyle (11.5-14.5) % Plt Count (130-400) K/uL MPV (7.4-10.4) fL Immature Gran % (Auto) % Neut % (Auto) % Lymph % (Auto) % Haakon % (Auto) % Eos % (Auto) % Baso % (Auto) % Neut # (Auto) (1.4-6.5) K/uL Lymph # (Auto) (1.2-3.4) K/uL Haakon # (Auto) (0.11-0.59) K/uL Eos # (Auto) (0-0.5) K/uL Baso # (Auto) (0-0.2) K/uL Immature Gran # (Auto) (0.00-0.02) K/uL Sodium (136-145) mmol/L Potassium (3.5-5.1) mmol/L Chloride (98-107) mmol/L Carbon Dioxide (21-32) mmol/L Anion Gap (3-11) BUN (6-23) mg/dl Creatinine (0.6-1.2) mg/dl Est Cr Clr Drug Dosing ml/min Est GFR ( Amer) ml/min Est GFR (Non-Af Amer) ml/min BUN/Creatinine Ratio (10-20) Glucose (70-99(Fasting)) mg/dl Lactate (0.4-2.0) mmol/L Calcium (8.5-10.1) mg/dl Magnesium (1.7-2.4) mg/dl Total Bilirubin (0.2-1.0) mg/dl AST (13-39) U/L ALT (7-52) U/L Alkaline Phosphatase (34-104) U/L Troponin I High Sens Total Protein (6.0-8.3) gm/dl Albumin (3.4-5.0) gm/dl Globulin (2.5-4.0) gm/dl Albumin/Globulin Ratio (0.9-2) Urine Color Yellow Urine Appearance Clear (Clear) Urine pH 8.5 H (4.5-7.5) Ur Specific Simpson 1.006 (1.000-1.030) Urine Protein Negative (Negative) Urine Glucose (UA) Negative (Negative) Urine Ketones Negative (Negative) Urine Blood Negative (Negative) Urine Nitrite Negative (Negative) Urine Bilirubin Negative (Negative) Urine Urobilinogen Negative (Negative) Ur Leukocyte Esterase Negative (Negative) Lyme Disease IgG Ab (Negative) Lyme Disease IgM Ab (Negative) SARS-CoV-2, RNA, NAAT (NEGATIVE) Imaging Data My Impression: X-ray: I interpreted the following studies. Chest: A single view study of the chest was reviewed and was negative for cardiomegaly, focal infiltrate, effusion, pulmonary edema, or wide mediastinum. Radiologist's Impression: CT abdomen and pelvis without contrast: Limited evaluation in the absence of contrast. Calcifications within the inferior pole of the left kidney measuring up to 1.8 cm. This is noted on prior study 05-14-2016 and favored to be chronic. Otherwise, no evidence of radiopaque renal calculi or signs of collecting system dilatation. Colonic diverticulosis without evidence of diverticulitis. No evidence of bowel obstruction. The appendix is poorly identified. No gross findings to suggest appendicitis. Radiologist: Jaleel Sherman MD ECG Data Attestation: I personally reviewed and interpreted this ECG as follows: Indication: + other Rate (beats per minute): 67 Rhythm: + normal sinus ECG Intervals/blocks: + Normal QRS and + Normal QT ECG [place] [employer]: + Left axis deviation ECG ST segments: + Normal ST segments MDM Narrative This is a 70-year-old female who presents with various complaints and concern fo r pain although declined pain medication. Patient found to have significantly elevated blood pressure and admitted to not taking her blood pressure medications recently. Patient was afebrile and otherwise hemodynamically stable. Labs drawn and sent, chest ray performed, EKG performed at bedside. Patient found to have an elevated troponin. No evidence on EKG or telemetry of any conduction abnormalities. Patient was given several doses of labetalol IV while in the emergency room to help better control her blood pressure. Patient denied any chest pain or trouble breathing. Patient found to have positive Lyme and did have a recent tick bite. Given elevated troponin, patient may have andrey lving Lyme carditis. I did discuss all results with patient at bedside and she was in agreement with plan for additional inpatient evaluation and management. I am less suspicious of ACS or hypertensive emergency. I do not suspect evolving vascular etiology. Patient had a normal and nonfocal neuro exam despite significantly elevated pressures. An order was placed for continuous cardiac monitoring. The monitor shows a rate of _96_ with _normal sinus__ rhythm. Impression & Plan Uncontrolled hypertension, Elevated troponin, Tick bite, Acute Lyme disease Discharge Plan Visit Data Chief Complaint: Abdominal Pain Stated Complaint: ABD PAIN,NERVE PAIN ED Provider: Lori Blanco Discharge Problem: Uncontrolled hypertension, Elevated troponin, Tick bite, Acute Lyme disease Patient Disposition: Admitted As Inpatient Discharge Instructions Interventions: ED Discharge Assessment Last Done: 06/17/21 08:23 Discharge Problem: Tick bite Qualifiers: Encounter type: initial encounter Site of tick bite: abdominal wall Qualified Code(s): S30.861A - Insect bite (nonvenomous) of abdominal wall, initial encounter
[2021-06-17] MEDS ORDERED: LABETALOL HCL IV 5 MG/ML 20ML IV STA ×2 (04:37→05:25)
[2021-06-17 04:38] LABS: Albumin Globulin Ratio 1.5 (0.9-2); Albumin Level 4.6 gm/dl (3.4-5.0); BUN Creatinine Ratio 30.6 (10-20); Bilirubin,Total 0.6 mg/dl (0.2-1.0); Calcium 9.8 mg/dl (8.5-10.1); Creatinine Clr Calc Pharmacy 53.3 ml/min; Est GFR (Non-African American) 83.7 ml/min; Globulin 3.1 gm/dl (2.5-4.0); Magnesium 2.4 mg/dl (1.7-2.4); Potassium 3.3 mmol/L (3.5-5.1); Total Protein 7.7 gm/dl (6.0-8.3)
[2021-06-17 04:41] LABS: Troponin I High Sensitivity 23.7 pg/ml (0-14)
[2021-06-17 05:12] LABS: Lyme Ab IgG w/WB Rflx Negative (Negative)
[2021-06-17 05:13] LABS: Lyme Ab IgM w/WB Rflx Positive (Negative)
[2021-06-17] MEDS ORDERED: DOXYCYCLINE HYCLATE 100 MG in DEXTROSE 5% 100 ML IV STA (05:18)
[2021-06-17] MEDS ORDERED: POTASSIUM CHLORIDE CRTAB 20 MEQ TABCR PO STA (05:23)
[2021-06-17 05:24] LABS: Appearance Urine Clear (Clear); Bilirubin Urine Negative (Negative); Blood Urine Negative (Negative); Color Urine Yellow; Glucose Urine UA Negative (Negative); Ketones Urine Negative (Negative); Leukocyte Esterase Urine Negative (Negative); Nitrite Urine Negative (Negative); Protein Urine Negative (Negative); Specific Gravity Urine 1.006 (1.000-1.030); Urobilinogen Urine Negative (Negative); pH Urine 8.5 (4.5-7.5)
[2021-06-17] MEDS ORDERED: hydrALAZINE HCL 25 MG TAB PO STA (06:11)
--- NOTE | 2021-06-17 06:53 | History & Physical Report ---
Date of Service June 17, 2021 Assessment & Plan (1) Hypertension: Plan: Patient with history of hypertension. She reports her blood pressure first became elevated in 2005 after presenting with Thyroid storm. She was previously on Amlodipine which caused leg swelling and Lisinopril which she did not feel well on either. Blood pressure elevated today, patient is without symptoms. No ischemic changes on EKG. She does have mild elevation of troponin. -HCTZ 25mg po daily to start today -Hydralazine 10mg po q 6 hours as needed -Continue to monitor (2) Elevated troponin: Plan: Patient denies chest pain, no acute ischemic EKG changes. Suspect demand ischemia in setting of elevated blood pressure readings. 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 Patient is on Cytomel. She reports 25mg tablets at home - she takes 1.5 tabs in the AM and 1.25 tabs in the PM. -Check TSH -Continue Cytomel (4) Tick bite: Plan: Patient reports tick bite several weeks ago with erythema. Lyme is preliminary positive, WB pending -Doxycycline 100mg IV BID Plan: F/E/N - Heplock. K repletion with 40meq in ER, repeat chemistry in AM, heart healthy diet as tolerated. Colace and Miralax as needed for constipation. Ppx - low risk for DVT, encourage ambulation Code - Full Dispo - Observation to medical with telemetry History of Present Illness Chief Complaint: elevated blood pressure Primary Care Provider: Leon Cohen MD Lori Asif is a 70yo female with history of Cinda thyroiditis and hypertension presenting with hypertension. Patient was previously on Amlodipine which she was unable to tolerate due to leg swelling and fatigue. She is to be taking Lisinopril 5mg po daily but states that she felt very tired on this medication and has not been taking it for the last month. She does not routinely check her blood pressure at home. She denies chest pain, palpitations, SOB, back pain or headache. She has been having some left sided sinus congestion which she attributes in part to an infected maxillary tooth #15. She had a root canal on the tooth in the past but it has been bothering her. She has an appointment to see a specialist in [place] on June 27 for consultation. She reports a tick bite on her left abdomen several weeks ago. She removed the tick and states that the area became quite red and inflamed. Today she picked the scab and the area became very irritated and started bleeding. She does report some arthralgias as well as generalized weakness. She reports that she feels like she has "blood poisoning". Also with intermittent abdominal pain, increased flatulence and constipation which is new. She denies fever but has been having some chills. Otherwise denies chest pain, palpitations, cough, SOB, nausea, vomiting, diarrhea. No additional complaints. Patient follows with a Functional Doctor in [place]. She prefers a more holistic and homeopathic approach to her healthcare. In the ER patient hypertensive, 202/123 on arrival. She denies chest pain, dizziness, SOB, focal numbness/weakness or BLAS. ER Coures: NSS x 1L, KCL 40mEq, Labetalol 5mg IV x 2 doses, Hydralazine 25mg po x 1, Doxycyclilne 100mg IV Allergies Allergy/AdvReac Type Severity Reaction Status Date / Time gluten Allergy Hives Unverified 06/17/21 06:49 ibuprofen AdvReac Hypertensio Unverified 06/17/21 06:49 n TEGRETOL, IODINE Allergy Severe Anaphylaxis Uncoded 06/17/21 06:49 Home Medications Medication Instructions Recorded Confirmed Type liothyronine 25 mcg tablet 25 mcg PO QPM 06/16/18 06/17/21 History (Cytomel) Past Med/Surg History Medical History (Updated 06/17/21 @ 06:52 by Sulema Maier DO) History of breast cancer s/p lumpectomy History of Cinda thyroiditis Hypertension Tonsillitis Surgical History (Updated 06/17/21 @ 06:37 by Sulema Maier DO) 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 History of lumpectomy Family History Other No significant family history Social History (Updated 06/17/21 @ 06:38 by Sulema Maier DO) Smoking Status: Never smoker Hx Alcohol Use: No Hx Substance Use: No Preferred Language: Portuguese Current Living Situation: Family Feels Safe at Home: Yes Review of Systems Review of Systems: All systems reviewed & are unremarkable except as noted in HPI & below Physical Exam Physical Exam: General: patient resting comfortably, NAD, non-toxic in appearance, AA&O x 4 Skin: warm, dry, intact HEENT: NC/AT, PERRL, EOMI, anicteric sclera, conjunctiva without injection, external ear normal to inspection and nontender, nares patent, moist mucus membranes, dentition intact, no oropharyngeal lesions, neck supple, trachea midline, no LAD, no thyromegaly, no JVD Heart: +S1/S2, regular, no m/r/g Lungs: equal air entry bilaterally, no rales/rhonchi/wheezes, small eschar on left abdomen with surrounding erythema Abd: +BS, soft, NT/ND, no masses/organomegaly/ascites Ext: warm, 2+ pulses in UE/LE bilaterally, no clubbing/cyanosis or edema Neuro: nonfocal, patient AA&O x 4, speech intact, no facial droop, moving all extremities on command with equal strength 5/5 Results & Data Results & Data ([facility]) Vital Signs (Past 12 Hours) Vital Signs Temp Pulse Resp BP Pulse Ox 06/17/21 04:06 99 06/17/21 03:35 36.0 C L 101 H 18 202/123 H 98 Laboratory Results Laboratory Results WBC 6.52 K/uL (4.8-10.8) 06/17/21 03:50 RBC 4.87 M/uL (4.2-5.4) 06/17/21 03:50 Hgb 14.2 g/dL (12.0-16.0) 06/17/21 03:50 Hct 41.6 % (37-47) 06/17/21 03:50 MCV 85.4 fL (80-100) 06/17/21 03:50 MCH 29.2 pg (25-34) 06/17/21 03:50 MCHC 34.1 g/dL (32-36) 06/17/21 03:50 RDW Std Deviation 43.4 fL (36.4-46.3) 06/17/21 03:50 RDW Coeff of Kyle 13.8 % (11.5-14.5) 06/17/21 03:50 Plt Count 275 K/uL (130-400) 06/17/21 03:50 MPV 10.0 fL (7.4-10.4) 06/17/21 03:50 Immature Gran % (Auto) 0.2 % 06/17/21 03:50 Neut % (Auto) 41.2 % 06/17/21 03:50 Lymph % (Auto) 46.0 % 06/17/21 03:50 [place]man % (Auto) 9.2 % 06/17/21 03:50 Eos % (Auto) 3.1 % 06/17/21 03:50 Baso % (Auto) 0.3 % 06/17/21 03:50 Neut # (Auto) 2.69 K/uL (1.4-6.5) 06/17/21 03:50 Lymph # (Auto) 3.00 K/uL (1.2-3.4) 06/17/21 03:50 Hickman # (Auto) 0.60 K/uL (0.11-0.59) H 06/17/21 03:50 Eos # (Auto) 0.20 K/uL (0-0.5) 06/17/21 03:50 Baso # (Auto) 0.02 K/uL (0-0.2) 06/17/21 03:50 Immature Gran # (Auto) 0.01 K/uL (0.00-0.02) 06/17/21 03:50 Sodium 140 mmol/L (136-145) 06/17/21 03:50 Potassium 3.3 mmol/L (3.5-5.1) L 06/17/21 03:50 Chloride 104 mmol/L (98-107) 06/17/21 03:50 Carbon Dioxide 28 mmol/L (21-32) 06/17/21 03:50 Anion Gap 8 (3-11) 06/17/21 03:50 BUN 22 mg/dl (6-23) 06/17/21 03:50 Creatinine 0.72 mg/dl (0.6-1.2) 06/17/21 03:50 Est Cr Clr Drug Dosing 53.3 ml/min 06/17/21 03:50 Est GFR ( Amer) 97.0 ml/min 06/17/21 03:50 Est GFR (Non-Af Amer) 83.7 ml/min 06/17/21 03:50 BUN/Creatinine Ratio 30.6 (10-20) H 06/17/21 03:50 Glucose 96 mg/dl (70-99(Fasting)) 06/17/21 03:50 Lactate 0.7 mmol/L (0.4-2.0) 06/17/21 04:03 Calcium 9.8 mg/dl (8.5-10.1) 06/17/21 03:50 Magnesium 2.4 mg/dl (1.7-2.4) 06/17/21 03:50 Total Bilirubin 0.6 mg/dl (0.2-1.0) 06/17/21 03:50 AST 36 U/L (13-39) 06/17/21 03:50 ALT 41 U/L (7-52) 06/17/21 03:50 Alkaline Phosphatase 83 U/L (34-104) 06/17/21 03:50 Troponin I High Sens 23.7 pg/ml (0-14) H 06/17/21 03:50 Troponin I High Sens Cancelled 06/17/21 03:50 Total Protein 7.7 gm/dl (6.0-8.3) 06/17/21 03:50 Albumin 4.6 gm/dl (3.4-5.0) 06/17/21 03:50 Globulin 3.1 gm/dl (2.5-4.0) 06/17/21 03:50 Albumin/Globulin Ratio 1.5 (0.9-2) 06/17/21 03:50 Urine Color Yellow 06/17/21 05:15 Urine Appearance Clear (Clear) 06/17/21 05:15 Urine pH 8.5 (4.5-7.5) H 06/17/21 05:15 Ur Specific [place] 1.006 (1.000-1.030) 06/17/21 05:15 Urine Protein Negative (Negative) 06/17/21 05:15 Urine Glucose (UA) Negative (Negative) 06/17/21 05:15 Urine Ketones Negative (Negative) 06/17/21 05:15 Urine Blood Negative (Negative) 06/17/21 05:15 Urine Nitrite Negative (Negative) 06/17/21 05:15 Urine Bilirubin Negative (Negative) 06/17/21 05:15 Urine Urobilinogen Negative (Negative) 06/17/21 05:15 Ur Leukocyte Esterase Negative (Negative) 06/17/21 05:15 Lyme Disease IgG Ab Negative (Negative) 06/17/21 03:50 Lyme Disease IgM Ab Positive (Negative) A 06/17/21 03:[address] of the Abdomen and Pelvis taken - read PENDING. CXR with no mediastinal widening, no obvious pulmonary disease, radiolucent object appear to be over face ?mask? ECG Additional Comments: NSR at 67, left axis deviation, DZ=566, QRS=90, FOm=800, notched/biphasic p- waves evident in inferior and anterior leads, ?CARL ?Mitral valve disease. No acute ischemic changes Code Status & VTE Plan VTE Prophylaxis Plan VTE Prophylaxis will be ordered: No PG Care Time/CCT Total # of Minutes Spent Total Time Spent with Patient: Total time spent is greater than 50% in coordination of care (as documented) at patient's floor/unit and/or counseling patient: Coding Level of Care Code INT OBSERVATION CARE 50M LVL 2 Diagnoses History of Cinda thyroiditis Z86.39 Hypertension I10 Elevated troponin R77.8 Tick bite W57.XXXA
--- NOTE | 2021-06-17 08:02 | CT Scan Report ---
CT OF THE ABDOMEN AND PELVIS WITHOUT CONTRAST CLINICAL HISTORY: Abdominal pain. COMPARISON STUDY: CT of the abdomen and pelvis May 14, 2016. TECHNIQUE: Axial images of the abdomen and pelvis were obtained without IV contrast. Images were revi ewed in the axial, sagittal, and coronal planes. Automated exposure control was utilized for the amrit dy. A dose lowering technique was utilized adhering to the principles of ALARA. FINDINGS: No pneumatosis, free air or portal venous gas is present. A 1.5 cm dense calcification with in the lower pole of the left kidney is again noted. This may be within a lesion which measures 1.9 c m. This is similar to prior CT of May 14, 2016. No renal, ureteral or bladder calculi are present. There is no hydronephrosis. Evaluation of the remainder of the abdomen and pelvis is suboptimal on th is unenhanced exam. The liver, spleen, adrenal glands are unremarkable. Pancreatic glandular atrophy is noted. There is no biliary or pancreatic ductal dilatation. No evidence for bowel obstruction. Sig moid diverticulosis is noted without evidence for acute diverticulitis. The appendix is normal. Calci fied fibroids are noted. There is hyperdense material within portions of the stomach and small bowel. No acute fracture or suspicious lesion within the visualized skeletal structures. No abdominal or pe lvic lymphadenopathy. There is no ascites. IMPRESSION: 1. No urinary calculi or hydronephrosis. 2. No acute process within the abdomen or pelvis on unenhanced exam. No evidence for acute appendicit is. No bowel obstruction. 3. Colonic diverticulosis. No evidence for acute diverticulitis. 4. No change in a 1.5 cm dense calcification within the lower pole of the left kidney which may be wi thin a 1.9 cm lesion. This is indeterminate although probably benign given stability since CT of [facility] 2016. ACT 112: Negative or not required by law. Electronically signed by: Kervin Ibarra M.D. 06/17/2021 8:01 AM
--- NOTE | 2021-06-17 08:08 | XRay Report ---
XR chest 1V portable CLINICAL HISTORY: SEPSIS COMPARISON STUDY: Chest radiograph March 23, 2021. FINDINGS: Thyroid shield is in place. Lung apices are partially obscured. Lung volumes are normal. Yin ngs are clear. There is no pneumothorax or pleural effusion. There is borderline cardiomegaly. Medias tinal contours are normal. There is no evidence for pulmonary edema. IMPRESSION: No acute cardiopulmonary findings. ACT 112: Negative or not required by law. Electronically signed by: Kervin Ibarra M.D. 06/17/2021 8:06 AM
[2021-06-17] MEDS ORDERED: NIFEdipine EXTENDED REL 30 MG TABCR PO STA (08:27)
[2021-06-17] MEDS ORDERED: ONDANSETRON INJ 2 MG/ML 2 ML VIAL IV PRN (09:05)
[2021-06-17] MEDS ORDERED: POLYETHYLENE (MIRALAX) 17 GM PACK PO PRN (09:05)
[2021-06-17] MEDS ORDERED: ACETAMINOPHEN 325 MG TAB PO PRN (09:05)
[2021-06-17] MEDS ORDERED: DOCUSATE SODIUM 100 MG CAP PO PRN (09:05)
[2021-06-17] MEDS: hydrALAZINE 10 MG TAB PO PRN ×2 (09:28→19:54)
[2021-06-17] MEDS: hydroCHLOROthiazide 25 MG TAB PO SCH (09:28)
[2021-06-17 10:11] LABS: Thyroid Stimulating Hormone < 0.010 uIu/ml (0.300-4.500)
[2021-06-17] MEDS: LIOTHYRONINE SODIUM 25 MCG TAB PO SCH (11:11)
[2021-06-17 11:32] LABS: T4 Free Thyroxine < 0.25 ng/dl (0.61-1.60)
--- NOTE | 2021-06-17 12:00 | Electrocardiogram Report ---
Test Reason : Blood Pressure : / mmHG Vent. Rate : 067 BPM Atrial Rate : 067 BPM P-R Int : 166 ms QRS Dur : 090 ms QT Int : 430 ms P-R-T Axes : 046 -33 055 degrees QTc Int : 454 ms Normal sinus rhythm Possible Left atrial enlargement Left axis deviation Left ventricular hypertrophy Abnormal ECG When compared with ECG of 15-APR-2021 09:10, No significant change was found Confirmed by Leon Bardales ([id number]) on 06/17/2021 12:00:02 PM Referred By: REFERRED SELF Confirmed By:Leon Bardales
--- NOTE | 2021-06-17 12:08 | Communication Note ---
Date of Service: June 17, 2021 Patient seen on daily rounds today. Hospitalized earlier this morning with hypertensive urgency. Does have an underlying history of hypertension in the p ast but is not on any blood pressure controlling medications. Claims that she is tried multiple medications in the past (including lisinopril, labetalol, atenolol) but was intolerant to these medications as they made her "not feel well". She primarily presented to the emergency department complaining of abdominal pain, joint pain, and a known recent tick bite. Her IgM Lyme was preliminarily positive. She has been started on doxycycline. She was hospitalized due to hypertensive urgency. Her blood pressure was 202/123. She does report frequent headaches and epistaxis. Denies visual disturbances, slurred speech, stroke symptoms. Patient was given IV labetalol while in the emergency department (total of 10 mg) and her blood pressure remains elevated at 190/101. Subsequently hospital ized with hydrochlorothiazide (is very reluctant to take anything else for blood pressure control). BP currently 198/117. Heart rate 71. Respirations 18. Temp 36.6. Pulse ox 100% on room air General: Resting comfortably in her hospital bed. Anxious but otherwise no acute distress. NAD. HEENT: Head is AT/NC. Buccal mucosa is moist and pink Neck: No JVD. Negative hepatojugular reflex Cardiac: RRR without M/G/R Lungs: CTA without W/R/R Abdomen: Normoactive X4. Soft and nontender in all quadrants. Extremities: No peripheral clubbing cyanosis or edema Neuro: A&O X4. Cranial nerves II through XII are grossly intact. No focal neuro deficits Skin: No obvious skin lesions or rashes Psych: Appropriate affect. Pleasant and cooperative 1. Hypertensive urgency 2. Tick bite with positive Lyme IgM Lengthy discussion with patient regarding the importance of blood pressure control and stroke risk. She understands. She is agreeable to continuation of the hydrochlorothiazide and willing to try Procardia (as usually good success with this medication). Biggest side effect may be edema of the lower extremities for which the HCTZ will help. Heart rate currently in the 70s. Will obtain a renal artery ultrasound to rule out renal artery stenosis as talking with the patient in the past, she has been on multiple medications and claims that "none of them worked". I am uncertain if perhaps she was not on medication long enough in the past to see added benefit (due to ill side effects), if her BP was stubborn, if her compliance was an issue, or perhaps she has underlying renal artery stenosis. She did not have a CT scan of the head in the emergency department but has no neurological deficits. I think we can hold off on this for now but would have low threshold if there is any change neurologically. Plan of care will be discussed with Dr. Han. Further orders as warranted.
--- NOTE | 2021-06-17 14:39 | Ultrasound Report ---
US duplex renal artery CLINICAL HISTORY: Hypertensive urgency- r/o renal artery stenosis COMPARISON STUDY: Abdomen and pelvis CT 06/17/2021. FINDINGS: Right kidney measures 10.0 cm the left kidney measures 9.3 cm. There is a 1.3 cm focal alicia ical calcification again noted within the lower pole the left kidney. This is better appreciated on t he prior CT examination. The bilateral renal veins are patent. No hydronephrosis. The peak systolic v elocity within the proximal left renal artery is 130 cm/s and within the proximal right renal artery is 157 cm/s. IMPRESSION: 1. No evidence for renal artery stenosis. 2. No hydronephrosis. ACT 112: Negative or not required by law. Electronically signed by: David Adan M.D. 06/17/2021 2:37 PM
[2021-06-17] MEDS: DOXYCYCLINE HYCLATE 100 MG CAP PO SCH (20:49)
[2021-06-17] MEDS ORDERED: LIOTHYRONINE SODIUM 25 MCG TAB PO SCH (21:00)
[2021-06-18 08:42] LABS: BUN Creatinine Ratio 28.4 (10-20); Calcium 10.7 mg/dl (8.5-10.1); Creatinine Clr Calc Pharmacy 43.6 ml/min; Est GFR (African American) 76.1 ml/min; Est GFR (Non-African American) 65.6 ml/min; Potassium 3.5 mmol/L (3.5-5.1)
[2021-06-18] MEDS ORDERED: NIFEdipine EXTENDED REL 30 MG TABCR PO SCH (09:00)
[2021-06-18] MEDS: DOXYCYCLINE HYCLATE 100 MG CAP PO SCH (09:36)
[2021-06-18] MEDS: hydroCHLOROthiazide 25 MG TAB PO SCH (09:38)
[2021-06-18] MEDS: LIOTHYRONINE SODIUM 25 MCG TAB PO SCH (10:53)
--- NOTE | 2021-06-18 11:16 | Discharge Summary ---
Date of Service June 18, 2021 Admission HPI Per Admitting Provider Lori Asif is a 70yo female with history of Cinda thyroiditis and hypertension presenting with hypertension. Patient was previously on Amlodipine which she was unable to tolerate due to leg swelling and fatigue. She is to be taking Lisinopril 5mg po daily but states that she felt very tired on this medication and has not been taking it for the last month. She does not routinely check her blood pressure at home. She denies chest pain, palpitations, SOB, back pain or headache. She has been having some left sided sinus congestion which she attributes in part to an infected maxillary tooth #15. She had a root canal on the tooth in the past but it has been bothering her. She has an appointment to see a specialist in [place] on June 27 for consultation. She reports a tick bite on her left abdomen several weeks ago. She removed the tick and states that the area became quite red and inflamed. Today she picked the scab and the area became very irritated and started bleeding. She does report some arthralgias as well as generalized weakness. She reports that she feels like she has "blood poisoning". Also with intermittent abdominal pain, increased flatulence and constipation which is new. She denies fever but has been having some chills. Otherwise denies chest pain, palpitations, cough, SOB, nausea, vomiting, diarrhea. No additional complaints. Patient follows with a Functional Doctor in [place]. She prefers a more holistic and homeopathic approach to her healthcare. In the ER patient hypertensive, 202/123 on arrival. She denies chest pain, dizziness, SOB, focal numbness/weakness or BLAS. ER Coures: NSS x 1L, KCL 40mEq, Labetalol 5mg IV x 2 doses, Hydralazine 25mg po x 1, Doxycyclilne 100mg IV Principal Diagnosis 1. Hypertensive Urgency 2. Lyme Disease 3. Elevated Troponin- likely secondary to Elevated Blood pressure Discharge Exam General: Resting comfortably in her hospital bed. Anxious but otherwise no acute distress. NAD. HEENT: Head is AT/NC. Buccal mucosa is moist and pink Neck: No JVD. Negative hepatojugular reflex Cardiac: RRR without M/G/R Lungs: CTA without W/R/R Abdomen: Normoactive X4. Soft and nontender in all quadrants. Extremities: No peripheral clubbing cyanosis or edema Neuro: A&O X4. Cranial nerves II through XII are grossly intact. No focal neuro deficits Skin: No obvious skin lesions or rashes Psych: Appropriate affect. Pleasant and cooperative Discharge Data Allergies Allergy/AdvReac Type Severity Reaction Status Date / Time gluten Allergy Hives Unverified 06/17/21 06:49 ibuprofen AdvReac Hypertensio Unverified 06/17/21 06:49 n TEGRETOL, IODINE Allergy Severe Anaphylaxis Uncoded 06/17/21 06:49 Consultations 06/17/21 05:42 ED Decision to Admit Stat Ordered Studies 06/17/21 05:23 CT abd pelvis wo con Urgent IMPRESSION: 1. No urinary calculi or hydronephrosis. 2. No acute process within the abdomen or pelvis on unenhanced exam. No evidence for acute appendicitis. No bowel obstruction. 3. Colonic diverticulosis. No evidence for acute diverticulitis. 4. No change in a 1.5 cm dense calcification within the lower pole of the left kidney which may be within a 1.9 cm lesion. This is indeterminate although probably benign given stability since CT of May 14, 2016. 06/17/21 11:57 US duplex renal artery Routine IMPRESSION: 1. No evidence for renal artery stenosis. 2. No hydronephrosis. 06/18/21 10:07 MR brain pituitary wo/w con Stat --NOT PERFORMED AT PATIENT REFUSED CONTRAST AND NONDIAGNOSTIC STUDY FOR PITUITARY ADENOMA WITH LACK OF CONTRAST Hospital Course (1) Uncontrolled hypertension: 70-year-old white female with an underlying past medical history of hypertension and Cinda's who presented to the emergency department with multiple complaints including abdominal pain, joint pain (in the hands, shoulders, hips), weakness in her legs, and dental pain (has a known bad tooth to see a root canal specialist). - BP upon presentation was 202/123 - h/o HTN and was on multiple antihypertensive agents in the past (including Lisinopril, Labetolol, Norvac) but has stopped all of these as they either "didn't work" or caused ill effects - Patient received IV labetolol in the ED with limited effect. - IV hydralazine given and patient hospitalized - started and titrated on Procardia, HCTZ with oral hydralazine with parameters (which she is requiring) - Renal US performed showing no evidence of MOLLY - BP today still slightly elevated (148/83) but much improved. Is stable for D/C to home with continued medications - lengthy D/W patient regarding the importance of good BP control. She reports feeling significantly improved today. "Didn't realize how bad she felt until feeling better with improved blood pressure" (2) Acute Lyme disease: - known tick bite recently with arthralgias. No fever or leukocytosis - Lyme panel-- positive lyme IgM. Western blot pending - started on Doxycycline. Continue this x21 days - given side effects of doxy, prescribed zofran as needed and pepcid bid (3) Tick bite: - see above (4) Hypokalemia: - replaced, resolved (5) Elevated troponin: - HS troponin slightly elevated (23.7). peaked at 25.2 with downtrend to 16.6. - No EKG changes. No chest pain. Likely elevated due to hypertensive urgency and supply/demand mismatch (6) History of Cinda thyroiditis: - Patient takes Cytomel. Follows a holistic naturopathic for thyroid control - TSH undetectable (<0.010) - Free T4 (<0.25). Total T3 pending - recommended MRI of the pituitary gland but patient declined IV contrast. Per radiology, nondiagnostic study without contrast. Patient should follow-up with her PCP regarding this Discharge to home Total Time Total Time Spent Total Time Spent (In Minutes): 45 minutes including time spent with patient, coordination of care, preparation of documentation Discharge Plan Discharge Items Patient Disposition: Home - Self-Care Reason For Visit: ABD PAIN,NERVE PAIN Discharge Diagnosis: 1. Hypertensive Urgency 2. Lyme Disease 3. Elevated Troponin- likely secondary to Elevated Blood pressure Activity: Resume your previous activity Non-emergency contact: Primary Care Provider Call non-emergency contact if: you have any medication questions and your symptoms worsen Follow-up/Referrals: Leon Cohen MD [Primary Care Provider] - 06/25/21 8:30 am Diet: Other - See Diet Comment Diet Comment: "DASH Diet" Addtl Attending Provider Instructions: You presented to the hospital with multiple complaints including abdominal pain, joint pain, and tooth pain all following a recent tick bite. Preliminarily tested positive for Lyme disease and have been started on doxycycline Complete 21 days of doxycycline as prescribed. Avoid taking this medication with dairy as this will block the absorption. Doxycycline can cause stomach irritation for which Pepcid has been prescribed. What led to your hospitalization was your significantly accelerated blood pressure. For blood pressure control you have been started on 3 blood pressure medications (this can be up or down titrated at the discretion of your PCP). 1. Procardia XL 60 mg at bedtime 2. HCTZ 25 mg in the morning 3. Hydralazine 10mg twice a day (in the morning with HCTZ and in the evening with Procardia) A renal artery scan was performed given the significant elevation in your blood pressure. This was negative for renal artery stenosis Your T4 is undetectable. A free T3 level was obtained but is pending. Your TSH is undetectable. Follow-up with your thyroid specialist regarding these abn ormalities as you have declined traditional thyroid treatments. Follow-up with your PCP within 7 to 10 days Follow-up with the dental specialist/root canal specialist as scheduled Return to the ED for any new or worsening symptoms Pending Studies at Discharge: No Stand-Alone Forms: [employer], Smoking Cessation Medications and DC Order Prescriptions: New nifedipine [Procardia XL] 30 mg Tablet Extended Release 24 Hr 60 mg PO HS Qty: 30 RF: 0 hydralazine 10 mg Tablet 10 mg PO BID Qty: 60 RF: 0 doxycycline hyclate 100 mg Capsule 100 mg PO BID Qty: 41 RF: 0 hydrochlorothiazide 25 mg Tablet 25 mg PO QAM Qty: 30 RF: 0 famotidine [Pepcid] 20 mg tablet 20 mg PO BID Qty: 60 RF: 0 ondansetron 4 mg tablet,disintegrating 4 mg PO Q8H PRN (Reason: nausea and vomiting) 4 Days Qty: 30 RF: 0 Continued liothyronine [Cytomel] 25 mcg tablet 25 mcg PO TID RF: 0 magnesium 250 mg Tablet 0 mg PO QAM RF: 0 Discontinued ascorbic acid (vitamin C) [Vitamin C] 1,000 mg Tablet 0 mg PO QAM RF: 0 cyanocobalamin (vitamin B-12) [Vitamin B-12] 1,000 mcg Tablet 0 mcg PO QAM RF: 0 vitamin B complex Tablet 1 tab PO QAM RF: 0 Bound Mineral 1 tab PO QAM RF: 0 Cardio-Plus 3 tab PO QAM RF: 0 Glutathione Capsule 1 cap PO QAM RF: 0 Lugol's Oil 1 cap PO QAM RF: 0 Nitric Oxide Capsule 2 cap PO QAM RF: 0 Vitamin D3 Drops 2 drp PO QAM RF: 0 Discharge Orders: Discharge Order (Routine); Ordered 06/18/21 Ordered By: Leydi Kingsley Admission Data Admit Date/Time: 06/17/21 06:20 Attending Provider: Diony Han Admit Provider: Sulema Maier Primary Care Provider: Leon Cohen Other Providers: Sulema Maier Coding Level of Care Code 79081 OBS Care - Discharge Diagnoses Uncontrolled hypertension I10 Acute Lyme disease A69.20 Tick bite S30.861A; W57.XXXA Encounter type: initial encounter Site of tick bite: abdominal wall Elevated troponin R77.8 History of Cinda thyroiditis Z86.39 Hypokalemia E87.6
[2021-06-20 01:42] LABS: 18KDIGG Band REACTIVE; 23KDIGG Band NON-REACTIVE; 23KDIGM Band NON-REACTIVE; 28KDIGG Band NON-REACTIVE; 30KDIGG Band NON-REACTIVE; 39KDIGG Band NON-REACTIVE; 39KDIGM Band NON-REACTIVE; 41KDIGG Band REACTIVE; 41KDIGM Band NON-REACTIVE; 45KDIGG Band NON-REACTIVE; 58KDIGG Band NON-REACTIVE; 66KDIGG Band NON-REACTIVE; 93KDIGG Band NON-REACTIVE; Lyme Antibodies, WB IgG NEGATIVE (NEGATIVE); Lyme Antibodies, WB IgM NEGATIVE (NEGATIVE)
== END 2021-06-18 15:30 | disposition home or self-care (01) ==
LOC: 2W 03:30 → ED 03:30 → SUATTDRO 06:20 → 2W 08:23

== ENCOUNTER 2021-10-05 04:07 | Observation (INO) ==
[2021-10-05] MEDS ORDERED: ONDANSETRON INJ 2 MG/ML 2 ML VIAL ONE (04:40)
[2021-10-05] MEDS ORDERED: fentaNYL citrate 100 MCG/2 ML VIAL ONE (04:41)
[2021-10-05] MEDS ORDERED: fentaNYL citrate 100 MCG/2 ML VIAL IV STA (04:56)
[2021-10-05] MEDS ORDERED: ONDANSETRON INJ 2 MG/ML 2 ML VIAL IV STA (04:57)
[2021-10-05 05:08] LABS: Hematocrit (blood only) 39.5 % (34.1-44.9); Hemoglobin 12.9 g/dl (12.0-16.0); Mean Corpuscular Hemoglobin 27.6 pg (25.0-34.0); Mean Corpuscular Hgb Conc 32.7 g/dL (32.0-36.0); Mean Corpuscular Volume 84.4 fL (80.0-100.0); Mean Platelet Volume 10.2 fL (9.4-12.3); Platelet Count 247 K/uL (130-400); RDW Standard Deviation 39.8 fL (36.4-46.3); Red Blood Count 4.68 M/uL (3.93-5.22); White Blood Count 5.69 K/ul (4.8-10.8)
--- NOTE | 2021-10-05 05:16 | Emergency Department Note ---
Impression & Plan Chest pain, Hypokalemia, Abdominal pain, epigastric, Anxiety Admit to the [facility] ED Provider Note NAME: NAEEM HUMMEL AGE: 71 SEX: F ARRIVES VIA: Walk-In INFORMANT: Patient and her ED PROVIDER(S): Chelsea Urrutia DO CHIEF COMPLAINT: Chest pain and epigastric pain PLAN: Disposition: Admit to the [facility] Condition: Guarded MEDICAL DECISION MAKING: This is a 71-year-old female patient who presents to the emergency department with severe chest pain and epigastric pain. The patient was straining to have a bowel movement when she had a sudden onset of epigastric pain that spread up into her chest. She presented with an elevated blood pressure. She is not currently taking any of her antihypertensive medications. Laboratory studies revealed significant hypokalemia. She has anaphylaxis with IV dye so therefore was unable to have a contrasted CT scan to rule out aortic dissection. The noncontrast scan showed no significant abnormalities in the chest and abdomen. She received IV fentanyl for the pain with significant relief of her discomfort. The patient did have EKG changes in the lateral leads but high-sensitivity troponin was negative. She received IV potassium replacement. Her blood pressure came down somewhat after receiving IV analgesia. The patient will be evaluated by the [facility]. Triage Nursing notes reviewed and agree with them. Additional history obtained from her who is at the bedside Prior medical records reviewed Vital Signs: reviewed and remarkable for hypertension and tachycardia Differential diagnosis: Aortic dissection; STEMI, NSTEMI, pancreatitis, ulcerative disease, cholecystitis ER treatment provided: IV fentanyl IV Zofran IV Ativan IV K rider Diagnostics interpreted by me: ECG: Normal sinus rhythm at a rate of [address] segment depression in the lateral leads as well as lead I and aVL which is new in comparison to previous EKG. There is no ectopy noted. Cardiac Monitoring: Sinus tachycardia at a rate of 111 Laboratory studies: See below Imaging studies: As per stat rad CT chest impression: Ascending aorta is ectatic, measuring up to 3.9 cm in diameter. Due to lack of intravenous contrast this study cannot evaluate for ao rtic dissection. No pleural or pericardial effusion. No evidence of pulmonary consolidation. CT abdomen pelvis without contrast: No evidence of infrarenal abdominal aortic aneurysm. In absence of intravenous contrast this study cannot evaluate for dissection. Multiple nodular calcifications in the uterus measuring up to 2 cm in diameter are consistent with fibroid changes in the uterus. There is 4.9 cm partially calcified space-occupying lesion seen in the right adnexa which is likely due to exophytic fibroid. No hydronephrosis or nephrolithiasis. Moderate to severe multilevel degenerative disc disease changes seen in the lumbar spine. 1.7 cm diameter calcific renal cortical density seen in the lower pole of the left kidney stable since prior study from 06/17/2021 HPI: 71/F arrives for evaluation of epigastric pain and chest pain. Patient suffers from constipation and was attempting to move her bowels when she had a very sudden onset of epigastric pain and chest pain. The pain has continued to intensify since it began. She became significantly weak and describes feeling thirsty. Patient does suffer from anxiety but symptoms have continued to worsen. ROS: See above HPI for pertinent positives & negatives. A total of 10 systems reviewed and were otherwise negative. PAST MEDICAL HISTORY: Anxiety, Cinda thyroiditis, celiac disease, see below PAST SURGICAL HISTORY:See Below FAMILY HISTORY:See Below SOCIAL HISTORY:See Below HOME MEDICATIONS:See list ALLERGIES:See list VITALS:See Below PHYSICAL EXAMINATION: HEENT: Head - normocephalic and atraumatic. Pupils are equal, round, and reactive to light. Extraocular eye muscles are intact, and sclera are a nicteric. Nose - moist nasal mucosa without discharge. Mouth - moist buccal mucosa. Oropharynx is nonerythematous and there is no tonsillar exudate or edema noted. Neck: Supple; no JVD, nuchal rigidity, cervical lymphadenopathy, or auscultated bruits. Heart: Regular rate and rhythm. There is a normal S1 and S2 with no murmurs, clicks, or gallops appreciated. Lungs: Clear to auscultation bilaterally with no wheezes, rales, or rhonchi. Abdomen: Soft, moderate tenderness to palpation in the epigastrium and right upper quadrant., nondistended, with good bowel sounds. There are no palpable pulsatile masses or hepatosplenomegaly. There is no guarding, rigidity, or r ebound noted. Extremities: No evidence of cyanosis, clubbing, or edema. There are easily palpable peripheral pulses. Skin: warm and dry with good turgor and no rashes. ED COURSE: Times/Reassessments: 0430: Patient was evaluated emergently in room B9. A complete history and physical was performed. A twelve-lead EKG was obtained as described above. An IV lock was initiated and labs were drawn as above. An order was placed for continuous cardiac monitoring. The patient was in a sinus tachycardia at 111. Patient was given IV fentanyl and Zofran. The patient went emergently for CT scan of the chest and abdomen to rule out a ortic dissection. Unfortunately the patient has anaphylaxis to IV dye so the CT had to be done without contrast. Patient was given a dose of IV Ativan for significant anxiety. She was started on IV K rider. The patient will be evaluated by the [facility] Hospitalist. 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 History of lumpectomy Family History Other No significant family history Social History (Updated 06/17/21 @ 06:38 by Sulema Maier DO) Smoking Status: Never smoker Second Hand Exposure: No; Hx Alcohol Use: No Hx Substance Use: No Preferred Language: Marshallese Communication Ability: Effective Supervisor Shearing Required: No Beliefs That Will Affect Care: None Current Living Situation: Spouse Feels Safe at Home: Yes Assistive Devices: None Allergies Allergies Allergy/AdvReac Type Severity Reaction Status Date / Time carbamazepine [From Tegretol] Allergy Severe Anaphylaxis Verified 10/05/21 12:52 iodine Allergy Severe Anaphylaxis Verified 10/05/21 12:52 gluten Allergy Hives Verified 10/05/21 10:44 ibuprofen AdvReac Hypertensio Verified 10/05/21 10:44 n Home Meds Home Medications Medication Instructions Recorded Confirmed liothyronine 25 mcg tablet 25 mcg PO TID 06/16/18 10/05/21 (Cytomel) magnesium 250 mg tablet 0 mg PO QAM 06/17/21 10/05/21 Previous Rx's Medication Instructions Recorded losartan 25 mg tablet 25 mg PO DAILY #30 tabs 10/05/21 Results & Data (ED) Vital Signs Vital Signs - 24 hr 10/05/21 04:12 10/05/21 05:13 10/05/21 05:47 Temperature 36.5 C Temperature Source Temporal Artery Scan Pulse Rate 111 H Pulse Rate [Apical] 75 Respiratory Rate 16 18 Respiratory Effort / Characteristics Non-Labored Respiratory Depth Normal Blood Pressure 222/117 H Blood Pressure [Left Arm] 181/108 H Blood Pressure Mean 152 Blood Pressure Mean [Left Arm] 132 Blood Pressure Position [Left Arm] Semi-fowlers Pulse Oximetry 100 95 97 Oxygen Delivery Method Room Air Room Air Room Air Sepsis Recent Fever Within 48 Hours No Sepsis New/Unexplained Change in Mental Status No Sepsis Action Taken by Nursing No Action Required 10/05/21 06:21 Temperature Temperature Source Pulse Rate Pulse Rate [Apical] 71 Respiratory Rate 22 Respiratory Effort / Characteristics Respiratory Depth Blood Pressure Blood Pressure [Left Arm] 174/98 H Blood Pressure Mean Blood Pressure Mean [Left Arm] 123 Blood Pressure Position [Left Arm] Pulse Oximetry 98 Oxygen Delivery Method Room Air Sepsis Recent Fever Within 48 Hours Sepsis New/Unexplained Change in Mental Status Sepsis Action Taken by Nursing Laboratory Data Result diagrams: 10/05/21 04:37 10/05/21 12:00 Lab Results 10/05/21 10/05/21 10/05/21 Range/Units 04:37 04:37 05:10 WBC 5.69 (4.8-10.8) K/ul RBC 4.68 (3.93-5.22) M/uL Hgb 12.9 (12.0-16.0) g/dl Hct 39.5 (34.1-44.9) % MCV 84.4 (80.0-100.0) fL MCH 27.6 (25.0-34.0) pg MCHC 32.7 (32.0-36.0) g/dL RDW Std Deviation 39.8 (36.4-46.3) fL RDW Coeff of Kyle 13.0 (11.5-14.5) % Plt Count 247 (130-400) K/uL MPV 10.2 (9.4-12.3) fL Immature Gran % (Auto) 0.2 % Neut % (Auto) 35.3 % Lymph % (Auto) 51.3 % Travis % (Auto) 10.9 % Eos % (Auto) 1.9 % Baso % (Auto) 0.4 % Neut # (Auto) 2.01 (1.4-6.5) K/uL Lymph # (Auto) 2.92 (1.2-3.4) K/uL Travis # (Auto) 0.62 (0.24-0.82) K/uL Eos # (Auto) 0.11 (0-0.50) K/uL Baso # (Auto) 0.02 (0-0.2) K/uL Immature Gran # (Auto) 0.01 (0.00-0.02) K/uL RBC Morphology Unremarkable Sodium 141 (136-145) mmol/L Potassium 2.8 L (3.5-5.1) mmol/L Chloride 104 (98-107) mmol/L Carbon Dioxide 28 (21-32) mmol/L Anion Gap 9 (3-11) BUN 22 (6-23) mg/dl Creatinine 0.77 (0.6-1.2) mg/dl Est Cr Clr Drug Dosing 51.5 ml/min Est GFR ( Amer) 88.8 ml/min Est GFR (Non-Af Amer) 76.6 ml/min BUN/Creatinine Ratio 28.6 H (10-20) Glucose 100 H (70-99(Fasting)) mg/dl Calcium 9.7 (8.5-10.1) mg/dl Total Bilirubin 0.7 (0.2-1.0) mg/dl AST 23 (13-39) U/L ALT 25 (7-52) U/L Alkaline Phosphatase 73 (34-104) U/L Troponin I High Sens 9.0 (0-14) pg/ml Total Protein 7.1 (6.0-8.3) gm/dl Albumin 4.3 (3.4-5.0) gm/dl Globulin 2.8 (2.5-4.0) gm/dl Albumin/Globulin Ratio 1.5 (0.9-2) Lipase 25 (11-82) U/L Urine Color Yellow Urine Appearance Clear (Clear) Urine pH 8.0 H (4.5-7.5) Ur Specific Mikana 1.005 (1.000-1.030) Urine Protein Negative (Negative) Urine Glucose (UA) Negative (Negative) Urine Ketones Negative (Negative) Urine Blood Negative (Negative) Urine Nitrite Negative (Negative) Urine Bilirubin Negative (Negative) Urine Urobilinogen Negative (Negative) Ur Leukocyte Esterase Negative (Negative) SARS-CoV-2, RNA, NAAT (NEGATIVE) 10/05/21 Range/Units 05:41 WBC (4.8-10.8) K/ul RBC (3.93-5.22) M/uL Hgb (12.0-16.0) g/dl Hct (34.1-44.9) % MCV (80.0-100.0) fL MCH (25.0-34.0) pg MCHC (32.0-36.0) g/dL RDW Std Deviation (36.4-46.3) fL RDW Coeff of Kyle (11.5-14.5) % Plt Count (130-400) K/uL MPV (9.4-12.3) fL Immature Gran % (Auto) % Neut % (Auto) % Lymph % (Auto) % Travis % (Auto) % Eos % (Auto) % Baso % (Auto) % Neut # (Auto) (1.4-6.5) K/uL Lymph # (Auto) (1.2-3.4) K/uL Travis # (Auto) (0.24-0.82) K/uL Eos # (Auto) (0-0.50) K/uL Baso # (Auto) (0-0.2) K/uL Immature Gran # (Auto) (0.00-0.02) K/uL RBC Morphology Sodium (136-145) mmol/L Potassium (3.5-5.1) mmol/L Chloride (98-107) mmol/L Carbon Dioxide (21-32) mmol/L Anion Gap (3-11) BUN (6-23) mg/dl Creatinine (0.6-1.2) mg/dl Est Cr Clr Drug Dosing ml/min Est GFR ( Amer) ml/min Est GFR (Non-Af Amer) ml/min BUN/Creatinine Ratio (10-20) Glucose (70-99(Fasting)) mg/dl Calcium (8.5-10.1) mg/dl Total Bilirubin (0.2-1.0) mg/dl AST (13-39) U/L ALT (7-52) U/L Alkaline Phosphatase (34-104) U/L Troponin I High Sens (0-14) pg/ml Total Protein (6.0-8.3) gm/dl Albumin (3.4-5.0) gm/dl Globulin (2.5-4.0) gm/dl Albumin/Globulin Ratio (0.9-2) Lipase (11-82) U/L Urine Color Urine Appearance (Clear) Urine pH (4.5-7.5) Ur Specific Mikana (1.000-1.030) Urine Protein (Negative) Urine Glucose (UA) (Negative) Urine Ketones (Negative) Urine Blood (Negative) Urine Nitrite (Negative) Urine Bilirubin (Negative) Urine Urobilinogen (Negative) Ur Leukocyte Esterase (Negative) SARS-CoV-2, RNA, NAAT NEGATIVE (NEGATIVE) Administered Medications Discontinued Medications Bisacodyl (Bisacodyl 10 Mg Supp) 10 mg PA DAILY PRN PRN Reason: Constipation Stop: 11/04/21 07:47 Last Admin: 10/05/21 09:32 Dose: 10 mg Documented By: JASMYN Fentanyl Citrate (Fentanyl Citrate 100 Mcg/2 Ml Vial) Confirm Administered Dose 100 mcg .ROUTE .STK-MED ONE Stop: 10/05/21 04:42 Last Admin: 10/05/21 04:59 Dose: Not Given Documented By: CANELO Fentanyl Citrate (Fentanyl Citrate 100 Mcg/2 Ml Vial) 50 mcg IV NOW STA Stop: 10/05/21 04:57 Last Admin: 10/05/21 04:55 Dose: 50 mcg Documented By: CANELO Potassium Chloride (K Jose De Jesus / Wtr) 10 meq in 100 mls @ 100 mls/hr IV Q1H LIZETTE; Protocol Stop: 10/05/21 07:44 Last Infusion: 10/05/21 07:44 Dose: 0 mls/hr Documented By: Admin: 10/05/21 06:44 Dose: 100 mls/hr Documented By: Infusion: 10/05/21 06:44 Dose: 100 mls/hr Documented By: Admin: 10/05/21 05:46 Dose: 100 mls/hr Documented By: CANELO Magnesium Sulfate/Dextrose (Magnesium Sulfate / D5w) 1 gm in 100 mls @ 50 mls/hr IV ONE ONE Stop: 10/05/21 10:14 Last Infusion: 10/05/21 11:40 Dose: 0 mls/hr Documented By: Admin: 10/05/21 09:37 Dose: 50 mls/hr Documented By: JASMYN Liothyronine Sodium (Liothyronine Sodium 25 Mcg Tab) 25 mcg PO TID LIZETTE Stop: 11/04/21 08:59 Last Admin: 10/05/21 09:34 Dose: 37.5 mcg Documented By: JASMYN Liothyronine Sodium (Liothyronine Sodium 25 Mcg Tab) 12.5 mcg PO DAILY@1400 LIZETTE Stop: 11/04/21 13:59 Last Admin: 10/05/21 14:12 Dose: 12.5 mcg Documented By: JASMYN Lorazepam (Lorazepam 2 Mg/1 Ml Vial) 0.5 mg IV NOW STA; Protocol Stop: 10/05/21 05:36 Last Admin: 10/05/21 05:46 Dose: 0.5 mg Documented By: CANELO Miscellaneous Information (Consult Pharmacy) 1 each N/A ONE STA Stop: 10/05/21 12:54 Last Admin: 10/05/21 14:21 Dose: Not Given Documented By: JASMYN Ondansetron HCl (Ondansetron Inj 2 Mg/Ml 2 Ml Vial) Confirm Administered Dose 4 mg .ROUTE .STK-MED ONE Stop: 10/05/21 04:41 Last Admin: 10/05/21 04:59 Dose: Not Given Documented By: CANELO Ondansetron HCl (Ondansetron Inj 2 Mg/Ml 2 Ml Vial) 4 mg IV NOW STA Stop: 10/05/21 04:58 Last Admin: 10/05/21 04:57 Dose: 4 mg Documented By: CANELO Polyethylene Glycol (Polyethylene (Miralax) 17 Gm Pack) 17 gm PO DAILY PRN PRN Reason: Constipation Stop: 11/04/21 07:47 Last Admin: 10/05/21 09:32 Dose: 17 gm Documented By: JASMYN Potassium Chloride (Potassium Chloride Crtab 20 Meq Tabcr) 60 meq PO NOW STA Stop: 10/05/21 08:28 Last Admin: 10/05/21 09:32 Dose: 60 meq Documented By: JASMYN Imaging Data Radiologist's Impression: Chest CT 10/05/21 04:54 CT OF THE CHEST WITHOUT IV CONTRAST CLINICAL HISTORY: Atypical chest pain. COMPARISON STUDY: Chest radiograph June 17, 2021. TECHNIQUE: Axial images of the chest were obtained without IV contrast. Images were reviewed in the axial, sagittal, and coronal planes. IV contrast was not administered for this examination. Automated exposure control was utilized for the study. A dose lowering technique was utilized adhering to the principles of ALARA. FINDINGS: Ascending aorta is ectatic, measuring 3.9 cm in caliber at the level of the main pulmonary artery. Aortic dissection cannot be assessed for on this unenhanced exam. There is no intramural hematoma. Mild cardiomegaly is noted. There is no pericardial effusion. No pneumothorax or pleural effusion is noted. Linear and groundglass opacities favor atelectasis. A few calcified granulomas are present. No consolidation to suggest pneumonia. There is no pneumothorax or pleural effusion. Mild T7 and T8 compression deformities are old. Abdomen and pelvis CT will be reported separately. IMPRESSION: 1. No acute process within the chest on unenhanced exam. 2. Ectatic ascending aorta, measuring 3.9 cm. Unable to assess for aortic dis section on this unenhanced exam. No intramural hematoma. ACT 112: Negative or not required by law. Electronically signed by: Kervin Ibarra M.D. 10/05/2021 6:32 AM Abdomen/Pelvis CT 10/05/21 04:55 CT OF THE ABDOMEN AND PELVIS WITHOUT CONTRAST CLINICAL HISTORY: Atypical chest pain. COMPARISON STUDY: CT of the abdomen and pelvis June 17, 2021. TECHNIQUE: Axial images of the abdomen and pelvis were obtained without IV contrast. Images were reviewed in the axial, sagittal, and coronal planes. Automated exposure control was utilized for the study. A dose lowering technique was utilized adhering to the principles of ALARA. FINDINGS: Caliber of the descending thoracic aorta is normal. Caliber of the abdominal aorta is normal. Moderate atherosclerotic plaque of the abdominal aorta is noted. Aortic dissection cannot be assessed for on this unenhanced examination. Low-attenuation left adrenal nodule is unchanged. This favors an adenoma. A hypodensity within the right hepatic lobe is also similar to CT of May 14, 2016. This is probably benign. Unenhanced images of the spleen, adrenal glands are unremarkable. There is pancreatic glandular atrophy. No evidence for a bowel obstruction. A 2.1 cm lesion containing dense calcification within the lower pole the left kidney is suboptimally assessed on this unenhanced exam but similar to CT of May 14, 2016. There is no ascites. No lymphadenopathy is present. Calcified fibroids are again noted. Bladder is distended. There is no ascites. No acute fracture or suspicious lesion within visualized skeletal structures. IMPRESSION: 1. No acute process within the abdomen or pelvis on unenhanced exam. 2. Moderate plaque of the abdominal aorta which is normal in caliber. Aortic dissection cannot be assessed for in this unenhanced exam. 3. No bowel obstruction. 4. Multiple fibroids. 5. Distended bladder. 6. 2.1 cm lesion within the lower pole of the left kidney which contains dense calcification. This is indeterminate and suboptimally assessed on this unenhanc ed exam but is similar to CT of May 14, 2016. ACT 112: Negative or not required by law. Electronically signed by: Kervin Ibarra M.D. 10/05/2021 6:44 AM Discharge Plan Visit Data Chief Complaint: Cardiac Assessment Stated Complaint: POSSIBLE HEART ATTACK/CHEST PAIN ED Provider: Chelsea Urrutia Discharge Problem: Chest pain, Hypokalemia, Abdominal pain, epigastric, Anxiety Patient Disposition: Admitted As Inpatient Discharge Instructions Interventions: ED Discharge Assessment Last Done: 10/05/21 07:43 : Chest pain Qualifiers: Chest pain type: other chest pain Qualified Code(s): R07.89 - Other chest pain
[2021-10-05 05:21] LABS: Albumin Globulin Ratio 1.5 (0.9-2); Albumin Level 4.3 gm/dl (3.4-5.0); BUN Creatinine Ratio 28.6 (10-20); Bilirubin,Total 0.7 mg/dl (0.2-1.0); Calcium 9.7 mg/dl (8.5-10.1); Creatinine Clr Calc Pharmacy 51.5 ml/min; Est GFR (African American) 88.8 ml/min; Est GFR (Non-African American) 76.6 ml/min; Globulin 2.8 gm/dl (2.5-4.0); Potassium 2.8 mmol/L (3.5-5.1); Total Protein 7.1 gm/dl (6.0-8.3)
[2021-10-05 05:25] LABS: Appearance Urine Clear (Clear); Bilirubin Urine Negative (Negative); Blood Urine Negative (Negative); Color Urine Yellow; Glucose Urine UA Negative (Negative); Ketones Urine Negative (Negative); Leukocyte Esterase Urine Negative (Negative); Nitrite Urine Negative (Negative); Protein Urine Negative (Negative); Specific Gravity Urine 1.005 (1.000-1.030); Urobilinogen Urine Negative (Negative)
[2021-10-05 05:33] LABS: Basophils # (auto) 0.02 K/uL (0-0.2); Basophils % (auto) 0.4 %; Eosinophils # (auto) 0.11 K/uL (0-0.50); Eosinophils % (auto) 1.9 %; Immature Granulocytes # (auto) 0.01 K/uL (0.00-0.02); Immature Granulocytes % (auto) 0.2 %; Lymphocytes # (auto) 2.92 K/uL (1.2-3.4); Lymphocytes % (auto) 51.3 %; Monocytes # (auto) 0.62 K/uL (0.24-0.82); Monocytes % (auto) 10.9 %; Neutrophils # (auto) 2.01 K/uL (1.4-6.5); Neutrophils % (auto) 35.3 %; RBC Morphology Unremarkable
[2021-10-05] MEDS ORDERED: LORazepam 2 MG/1 ML VIAL IV STA (05:35)
[2021-10-05] MEDS: POTASSIUM CHLORIDE / WTR 10 MEQ/100 ML PLCT IV SCH ×2 (05:46→06:44)
--- NOTE | 2021-10-05 06:34 | CT Scan Report ---
CT OF THE CHEST WITHOUT IV CONTRAST CLINICAL HISTORY: Atypical chest pain. COMPARISON STUDY: Chest radiograph June 17, 2021. TECHNIQUE: Axial images of the chest were obtained without IV contrast. Images were reviewed in the axial, sagittal, and coronal planes. IV contrast was not administered for this examination. Automat ed exposure control was utilized for the study. A dose lowering technique was utilized adhering to t he principles of ALARA. FINDINGS: Ascending aorta is ectatic, measuring 3.9 cm in caliber at the level of the main pulmonary artery. Aortic dissection cannot be assessed for on this unenhanced exam. There is no intramural hem atoma. Mild cardiomegaly is noted. There is no pericardial effusion. No pneumothorax or pleural effus ion is noted. Linear and groundglass opacities favor atelectasis. A few calcified granulomas are pres ent. No consolidation to suggest pneumonia. There is no pneumothorax or pleural effusion. Mild T7 and T8 compression deformities are old. Abdomen and pelvis CT will be reported separately. IMPRESSION: 1. No acute process within the chest on unenhanced exam. 2. Ectatic ascending aorta, measuring 3.9 cm. Unable to assess for aortic dissection on this unenhanc ed exam. No intramural hematoma. ACT 112: Negative or not required by law. Electronically signed by: Kervin Ibarra M.D. 10/05/2021 6:32 AM
--- NOTE | 2021-10-05 06:46 | CT Scan Report ---
CT OF THE ABDOMEN AND PELVIS WITHOUT CONTRAST CLINICAL HISTORY: Atypical chest pain. COMPARISON STUDY: CT of the abdomen and pelvis June 17, 2021. TECHNIQUE: Axial images of the abdomen and pelvis were obtained without IV contrast. Images were revi ewed in the axial, sagittal, and coronal planes. Automated exposure control was utilized for the amrit dy. A dose lowering technique was utilized adhering to the principles of ALARA. FINDINGS: Caliber of the descending thoracic aorta is normal. Caliber of the abdominal aorta is remberto l. Moderate atherosclerotic plaque of the abdominal aorta is noted. Aortic dissection cannot be asses sed for on this unenhanced examination. Low-attenuation left adrenal nodule is unchanged. This favors an adenoma. A hypodensity within the right hepatic lobe is also similar to CT of May 14, 2016. Thi s is probably benign. Unenhanced images of the spleen, adrenal glands are unremarkable. There is panc reatic glandular atrophy. No evidence for a bowel obstruction. A 2.1 cm lesion containing dense calci fication within the lower pole the left kidney is suboptimally assessed on this unenhanced exam but s imilar to CT of May 14, 2016. There is no ascites. No lymphadenopathy is present. Calcified fibroid s are again noted. Bladder is distended. There is no ascites. No acute fracture or suspicious lesion within visualized skeletal structures. IMPRESSION: 1. No acute process within the abdomen or pelvis on unenhanced exam. 2. Moderate plaque of the abdominal aorta which is normal in caliber. Aortic dissection cannot be ass essed for in this unenhanced exam. 3. No bowel obstruction. 4. Multiple fibroids. 5. Distended bladder. 6. 2.1 cm lesion within the lower pole of the left kidney which contains dense calcification. This is indeterminate and suboptimally assessed on this unenhanced exam but is similar to CT of May 14 17. ACT 112: Negative or not required by law. Electronically signed by: Kervin Ibarra M.D. 10/05/2021 6:44 AM
--- NOTE | 2021-10-05 06:54 | History & Physical Report ---
Date of Service October 05, 2021 Assessment & Plan (1) Chest pain: Plan: Patient with diffuse weakness following straining for a bowel movement Troponin x [address] depressions Do not strongly suspect ASCVD -Telemetry monitoring -Troponin monitoring (2) Hypokalemia: Plan: K=2.8. Most likely contributing to patient's weakness -Magnesium x 1gm -KCl x 60mEq -Repeat chemistry at 12:00 (3) Uncontrolled hypertension: Plan: Elevated blood pressure presently at 174/98. Patient does not take anti- hypertensives -Monitor -Encourage her to resume her prescribed medications (4) History of Cinda thyroiditis: Plan: Patient takes Cytomel and follows a holistic instrumental music teacher for thyroid TSH has been undetectable MRI pituitary has been recommended in the past but patient is unable to receive IV contrast -Check TSH, T3, T4 -PCP followup History of Present Illness Chief Complaint: abdominal pain, weakness Primary Care Provider: Leon Cohen MD Lori Asif is a 71yo female with Cinda thyroiditis and HTN presenting with weakness. Patient has been constipated at home. She performed an enema this evening followed by a foot soak. Today at 03:30 she went to the bathroom and was straining to have a bowel movement. She then developed diffuse generalized weakness, palpitations, chills, sweats and near syncope. Also with abdominal discomfort in the lower right quadrant. No complaint of chest pain, nausea, vomiting or diarrhea. No fever. Patients blood pressure elevated at home to over 200/100. In the ER she is hypertensive otherwise HD stable. NAD. Her weakness and abdominal discomfort have improved. is at bedside and assists with history. He does voice concern that patient has had multiple trips to the ER at 2-3 in the morning for feeling that she is having a heart attack. is concerned that her frequent symptoms may be secondary to anxiety. He also states that patient is on 14 daily supplements. Patient sees an Herbalist who helps to manage her daily medications. Patient only taking Cytomel of her prescribed home medications. Allergies Allergy/AdvReac Type Severity Reaction Status Date / Time gluten Allergy Hives Unverified 06/17/21 06:49 ibuprofen AdvReac Hypertensio Unverified 06/17/21 06:49 n TEGRETOL, IODINE Allergy Severe Anaphylaxis Uncoded 06/17/21 06:49 Home Medications Medication Instructions Recorded Confirmed Type liothyronine 25 mcg tablet 25 mcg PO TID 06/16/18 06/17/21 History (Cytomel) magnesium 250 mg tablet 0 mg PO QAM 06/17/21 06/17/21 History doxycycline hyclate 100 mg capsule 100 mg PO BID #41 caps 06/18/21 Rx famotidine 20 mg tablet (Pepcid) 20 mg PO BID #60 tabs 06/18/21 Rx hydralazine 10 mg tablet 10 mg PO BID #60 tabs 06/18/21 Rx hydrochlorothiazide 25 mg tablet 25 mg PO QAM #30 tabs 06/18/21 Rx nifedipine 30 mg tablet,extended 60 mg PO HS #30 tabs 06/18/21 Rx release 24 hr (Procardia XL) Past Med/Surg History Medical History (Updated 10/05/21 @ 06:00 by Chelsea Urrutia DO) History of breast cancer s/p lumpectomy History of Cinda thyroiditis Hypertension Tonsillitis Surgical History (Updated 06/17/21 @ 06:37 by Sulema Maier DO) 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 History of lumpectomy Family History Other No significant family history Social History (Updated 06/17/21 @ 06:38 by Sulema Maier DO) Smoking Status: Never smoker Second Hand Exposure: No; Hx Alcohol Use: No Hx Substance Use: No Preferred Language: Libyan Communication Ability: Effective Radio Presenter Required: No Beliefs That Will Affect Care: None Current Living Situation: Spouse Feels Safe at Home: Yes Assistive Devices: None Review of Systems Review of Systems: All systems reviewed & are unremarkable except as noted in HPI & below Physical Exam Physical Exam: General: patient resting comfortably, NAD, non-toxic in appearance, AA&O x 4 Skin: warm, dry, intact, no rashes or lesions HEENT: NC/AT, PERRL, EOMI, anicteric sclera, conjunctiva without injection, external ear normal to inspection and nontender, nares patent, moist mucus membranes, dentition intact, no oropharyngeal lesions, neck supple, trachea midline, no LAD, no thyromegaly, no JVD Heart: +S1/S2, regular, no m/r/g Lungs: equal air entry bilaterally, no rales/rhonchi/wheezes Abd: +BS, soft, ND, tender in the RLQ, no rebound/guarding/peritonitis, no masses/organomegaly/ascites Ext: warm, 2+ pulses in UE/LE bilaterally, no clubbing/cyanosis or edema Neuro: nonfocal, patient AA&O x 4, speech intact, no facial droop, moving all extremities on command with equal strength 5/5 Results & Data Results & Data ([facility]) Vital Signs (Past 12 Hours) Vital Signs Temp Pulse Pulse Resp BP BP Pulse Ox 10/05/21 06:21 71 22 174/98 H 98 10/05/21 05:47 97 10/05/21 05:13 75 18 181/108 H 95 10/05/21 04:12 36.5 C 111 H 16 222/117 H 100 O2 Del Method 10/05/21 06:21 Room Air 10/05/21 05:47 Room Air 10/05/21 05:13 Room Air 10/05/21 04:12 Room Air Laboratory Results Laboratory Results WBC 5.69 K/ul (4.8-10.8) 10/05/21 04:37 RBC 4.68 M/uL (3.93-5.22) 10/05/21 04:37 Hgb 12.9 g/dl (12.0-16.0) 10/05/21 04:37 Hct 39.5 % (34.1-44.9) 10/05/21 04:37 MCV 84.4 fL (80.0-100.0) 10/05/21 04:37 MCH 27.6 pg (25.0-34.0) 10/05/21 04:37 MCHC 32.7 g/dL (32.0-36.0) 10/05/21 04:37 RDW Std Deviation 39.8 fL (36.4-46.3) 10/05/21 04:37 RDW Coeff of Kyle 13.0 % (11.5-14.5) 10/05/21 04:37 Plt Count 247 K/uL (130-400) 10/05/21 04:37 MPV 10.2 fL (9.4-12.3) 10/05/21 04:37 Immature Gran % (Auto) 0.2 % 10/05/21 04:37 Neut % (Auto) 35.3 % 10/05/21 04:37 Lymph % (Auto) 51.3 % 10/05/21 04:37 Cherry % (Auto) 10.9 % 10/05/21 04:37 Eos % (Auto) 1.9 % 10/05/21 04:37 Baso % (Auto) 0.4 % 10/05/21 04:37 Neut # (Auto) 2.01 K/uL (1.4-6.5) 10/05/21 04:37 Lymph # (Auto) 2.92 K/uL (1.2-3.4) 10/05/21 04:37 Cherry # (Auto) 0.62 K/uL (0.24-0.82) 10/05/21 04:37 Eos # (Auto) 0.11 K/uL (0-0.50) 10/05/21 04:37 Baso # (Auto) 0.02 K/uL (0-0.2) 10/05/21 04:37 Immature Gran # (Auto) 0.01 K/uL (0.00-0.02) 10/05/21 04:37 RBC Morphology Unremarkable 10/05/21 04:37 Sodium 141 mmol/L (136-145) 10/05/21 04:37 Potassium 2.8 mmol/L (3.5-5.1) L 10/05/21 04:37 Chloride 104 mmol/L (98-107) 10/05/21 04:37 Carbon Dioxide 28 mmol/L (21-32) 10/05/21 04:37 Anion Gap 9 (3-11) 10/05/21 04:37 BUN 22 mg/dl (6-23) 10/05/21 04:37 Creatinine 0.77 mg/dl (0.6-1.2) 10/05/21 04:37 Est Cr Clr Drug Dosing 51.5 ml/min 10/05/21 04:37 Est GFR ( Amer) 88.8 ml/min 10/05/21 04:37 Est GFR (Non-Af Amer) 76.6 ml/min 10/05/21 04:37 BUN/Creatinine Ratio 28.6 (10-20) H 10/05/21 04:37 Glucose 100 mg/dl (70-99(Fasting)) H 10/05/21 04:37 Calcium 9.7 mg/dl (8.5-10.1) 10/05/21 04:37 Total Bilirubin 0.7 mg/dl (0.2-1.0) 10/05/21 04:37 AST 23 U/L (13-39) 10/05/21 04:37 ALT 25 U/L (7-52) 10/05/21 04:37 Alkaline Phosphatase 73 U/L (34-104) 10/05/21 04:37 Troponin I High Sens 9.0 pg/ml (0-14) 10/05/21 04:37 Total Protein 7.1 gm/dl (6.0-8.3) 10/05/21 04:37 Albumin 4.3 gm/dl (3.4-5.0) 10/05/21 04:37 Globulin 2.8 gm/dl (2.5-4.0) 10/05/21 04:37 Albumin/Globulin Ratio 1.5 (0.9-2) 10/05/21 04:37 Lipase 25 U/L (11-82) 10/05/21 04:37 Urine Color Yellow 10/05/21 05:10 Urine Appearance Clear (Clear) 10/05/21 05:10 Urine pH 8.0 (4.5-7.5) H 10/05/21 05:10 Ur Specific [place] 1.005 (1.000-1.030) 10/05/21 05:10 Urine Protein Negative (Negative) 10/05/21 05:10 Urine Glucose (UA) Negative (Negative) 10/05/21 05:10 Urine Ketones Negative (Negative) 10/05/21 05:10 Urine Blood Negative (Negative) 10/05/21 05:10 Urine Nitrite Negative (Negative) 10/05/21 05:10 Urine Bilirubin Negative (Negative) 10/05/21 05:10 Urine Urobilinogen Negative (Negative) 10/05/21 05:10 Ur Leukocyte Esterase Negative (Negative) 10/05/21 05:10 SARS-CoV-2, RNA, NAAT NEGATIVE (NEGATIVE) 10/05/21 05:[address] 10/05/21 04:54 CT OF THE CHEST WITHOUT IV CONTRAST CLINICAL HISTORY: Atypical chest pain. COMPARISON STUDY: Chest radiograph June 17, 2021. TECHNIQUE: Axial images of the chest were obtained without IV contrast. Images were reviewed in the axial, sagittal, and coronal planes. IV contrast was not administered for this examination. Automated exposure control was utilized for the study. A dose lowering technique was utilized adhering to the principles of ALARA. FINDINGS: Ascending aorta is ectatic, measuring 3.9 cm in caliber at the level of the main pulmonary artery. Aortic dissection cannot be assessed for on this unenhanced exam. There is no intramural hematoma. Mild cardiomegaly is noted. There is no pericardial effusion. No pneumothorax or pleural effusion is noted. Linear and groundglass opacities favor atelectasis. A few calcified granulomas are present. No consolidation to suggest pneumonia. There is no pneumothorax or pleural effusion. Mild T7 and T8 compression deformities are old. Abdomen and pelvis CT will be reported separately. IMPRESSION: 1. No acute process within the chest on unenhanced exam. 2. Ectatic ascending aorta, measuring 3.9 cm. Unable to assess for aortic dissection on this unenhanced exam. No intramural hematoma. ACT 112: Negative or not required by law. Electronically signed by: Kervin Ibarra M.D. 10/05/2021 6:32 AM Abdomen/Pelvis CT 10/05/21 04:55 CT OF THE ABDOMEN AND PELVIS WITHOUT CONTRAST CLINICAL HISTORY: Atypical chest pain. COMPARISON STUDY: CT of the abdomen and pelvis June 17, 2021. TECHNIQUE: Axial images of the abdomen and pelvis were obtained without IV contrast. Images were reviewed in the axial, sagittal, and coronal planes. Automated exposure control was utilized for the study. A dose lowering technique was utilized adhering to the principles of ALARA. FINDINGS: Caliber of the descending thoracic aorta is normal. Caliber of the abdominal aorta is normal. Moderate atherosclerotic plaque of the abdominal aorta is noted. Aortic dissection cannot be assessed for on this unenhanced examination. Low-attenuation left adrenal nodule is unchanged. This favors an adenoma. A hypodensity within the right hepatic lobe is also similar to CT of May 14, 2016. This is probably benign. Unenhanced images of the spleen, adrenal glands are unremarkable. There is pancreatic glandular atrophy. No evidence for a bowel obstruction. A 2.1 cm lesion containing dense calcification within the lower pole the left kidney is suboptimally assessed on this unenhanced exam but similar to CT of May 14, 2016. There is no ascites. No lymphadenopathy is present. Calcified fibroids are again noted. Bladder is distended. There is no ascites. No acute fracture or suspicious lesion within visualized skeletal structures. IMPRESSION: 1. No acute process within the abdomen or pelvis on unenhanced exam. 2. Moderate plaque of the abdominal aorta which is normal in caliber. Aortic dissection cannot be assessed for in this unenhanced exam. 3. No bowel obstruction. 4. Multiple fibroids. 5. Distended bladder. 6. 2.1 cm lesion within the lower pole of the left kidney which contains dense calcification. This is indeterminate and suboptimally assessed on this unenhanced exam but is similar to CT of May 14, 2016. ACT 112: Negative or not required by law. Electronically signed by: Kervin Ibarra M.D. 10/05/2021 6:44 AM ECG Additional Comments: EKG shows NSR at 97, ST depressions present in V3-V6 Code Status & VTE Plan VTE Prophylaxis Plan VTE Prophylaxis will be ordered: Yes PG Care Time/CCT Total # of Minutes Spent Total Time Spent with Patient: Total time spent is greater than 50% in coordination of care (as documented) at patient's floor/unit and/or counseling patient: Coding Level of Care Code INT OBSERVATION CARE 70M LVL 3 Diagnoses Chest pain R07.89 Chest pain type: other chest pain Hypokalemia E87.6 Uncontrolled hypertension I10 History of Cinda thyroiditis Z86.39 (1) Chest pain Chest pain type: other chest pain Qualified Code(s): R07.89 - Other chest pain
[2021-10-05] MEDS ORDERED: CONSULT PHARMACY PRN (07:48)
[2021-10-05] MEDS ORDERED: ONDANSETRON INJ 2 MG/ML 2 ML VIAL IV PRN (07:48)
[2021-10-05] MEDS ORDERED: bisacodyL 10 MG SUPP PR PRN (07:48)
[2021-10-05] MEDS ORDERED: POLYETHYLENE (MIRALAX) 17 GM PACK PO PRN (07:48)
[2021-10-05] MEDS ORDERED: MAGNESIUM SULFATE / D5W 1 GM/100 ML BAG IV ONE (08:15)
[2021-10-05] MEDS ORDERED: POTASSIUM CHLORIDE CRTAB 20 MEQ TABCR PO STA (08:27)
[2021-10-05] MEDS ORDERED: LIOTHYRONINE SODIUM 25 MCG TAB PO SCH ×3 (09:00→21:00)
[2021-10-05 09:24] LABS: Troponin I High Sensitivity 15.6 pg/ml (0-14)
[2021-10-05 12:49] LABS: BUN Creatinine Ratio 27.1 (10-20); Calcium 9.4 mg/dl (8.5-10.1); Creatinine Clr Calc Pharmacy 56.6 ml/min; Est GFR (African American) 99.6 ml/min; Potassium 4.5 mmol/L (3.5-5.1)
[2021-10-05 12:50] LABS: Troponin I High Sensitivity 18.1 pg/ml (0-14)
[2021-10-05] MEDS ORDERED: CONSULT PHARMACY STA (12:53)
--- NOTE | 2021-10-05 16:14 | Discharge Summary ---
Date of Service October 05, 2021 Admission HPI Per Admitting Provider Lori Asif is a 71yo female with Cinda thyroiditis and HTN presenting with weakness. Patient has been constipated at home. She performed an enema this evening followed by a foot soak. Today at 03:30 she went to the bathroom and was straining to have a bowel movement. She then developed diffuse generalized weakness, palpitations, chills, sweats and near syncope. Also with abdominal discomfort in the lower right quadrant. No complaint of chest pain, nausea, vomiting or diarrhea. No fever. Patients blood pressure elevated at home to over 200/100. In the ER she is hypertensive otherwise HD stable. NAD. Her weakness and abdominal discomfort have improved. is at bedside and assists with history. He does voice concern that patient has had multiple trips to the ER at 2-3 in the morning for feeling that she is having a heart attack. is concerned that her frequent symptoms may be secondary to anxiety. He also states that patient is on 14 daily supplements. Patient sees an Herbalist who helps to manage her daily medications. Patient only taking Cytomel of her prescribed home medications. Admission Exam Per Admitting Provider General: patient resting comfortably, NAD, non-toxic in appearance, AA&O x 4 Skin: warm, dry, intact, no rashes or lesions HEENT: NC/AT, PERRL, EOMI, anicteric sclera, conjunctiva without injection, external ear normal to inspection and nontender, nares patent, moist mucus membranes, dentition intact, no oropharyngeal lesions, neck supple, trachea midline, no LAD, no thyromegaly, no JVD Heart: +S1/S2, regular, no m/r/g Lungs: equal air entry bilaterally, no rales/rhonchi/wheezes Abd: +BS, soft, ND, tender in the RLQ, no rebound/guarding/peritonitis, no masses/organomegaly/ascites Ext: warm, 2+ pulses in UE/LE bilaterally, no clubbing/cyanosis or edema Neuro: nonfocal, patient AA&O x 4, speech intact, no facial droop, moving all extremities on command with equal strength 5/5 Principal Diagnosis Hypokalemai Discharge Exam General: Resting comfortably in her hospital bed, no acute distress HEENT: Normocephalic/atraumatic, PERRLA. Moist mucous membranes Neck: No JVD, no cervical LAD CV: RRR, normal S1 and S2, no murmurs noted Lungs: CTAB unlabored respirations Abdomen: Soft, nontender, nondistended, no rebound or guarding Extremities: No peripheral clubbing cyanosis or edema Neuro: A&O X4. Cranial nerves II through XII are grossly intact. No focal n eurological deficits Skin: No obvious skin lesions or rashes Psych: Appropriate affect. Pleasant and cooperative Discharge Data Allergies Allergy/AdvReac Type Severity Reaction Status Date / Time carbamazepine [From Tegretol] Allergy Severe Anaphylaxis Verified 10/05/21 12:52 iodine Allergy Severe Anaphylaxis Verified 10/05/21 12:52 gluten Allergy Hives Verified 10/05/21 10:44 ibuprofen AdvReac Hypertensio Verified 10/05/21 10:44 n Consultations 10/05/21 05:41 ED Decision to Admit Stat Ordered Studies 10/05/21 04:54 CT chest diagnostic wo con Urgent 10/05/21 04:55 CT Abd and Pelvis [CT abd pelvis wo con] Urgent Hospital Course (1) Hypokalemia: Pt admitted on 10/05 for chest pain r/o and hypokalemia. Discharged on 10/05 after resolution of chest pain and normalization of K. PCP f/u scheduled for 10/15. (1) Chest pain: Plan: -Patient with diffuse weakness following straining for a bowel movement -Serial troponin Hs 15 -> 18 -EKG on admission with questionable ST depressions of inferior leads -Repeat EKG without any ST changes -Pt did not have any chest pain during hospitalization, remained in sinus rhythm per telemetry (2) Hypokalemia: Plan: -K 2.8 on admission, Mg 2.0 -Subsequently repleted with IV + oral K- total 60 meq -Repeat K 4.5 (3) Uncontrolled hypertension: Plan: -High BP 170s-220s/90s-110s during stay, asymptomatic -Per chart review, pt has history of poorly controlled hypertension due to m edication nonadherence as well as previous poor tolerance of antihypertensives -Prescribed losartan 12.5 mg on discharge with order placed for BMP in 1 week (4) History of Cinda thyroiditis: Plan: -Patient takes Cytomel and 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 -TSH has been undetectable, T4 < 0.5 -Close PCP f/u scheduled for 10/15 (2) Uncontrolled hypertension: (3) Elevated troponin: (4) History of Cinda thyroiditis: Total Time Total Time Spent Total Time Spent (In Minutes): 30 Discharge Plan Discharge Items Patient Disposition: Home - Self-Care Reason For Visit: WEAKNESS, HYPOKALEMIA Discharge Diagnosis: Hypokalemia Activity: Resume your previous activity Non-emergency contact: Primary Care Provider Call non-emergency contact if: you have any medication questions, your symptoms worsen, your pain is worsening and you have a fever Follow-up/Referrals: Leon Cohen MD [Primary Care Provider] - Diet: Regular Addtl Attending Provider Instructions: You were admitted to the hospital for weakness which was due to hypokalemia, which refers to low potassium levels. We replenished your potassium levels and it was restored from 2.3 to 4.5. Your blood pressure was quite high while in the hospital but you otherwise remained thankfully stable. A discharge summary will be sent to your primary care physician to ensure continuity of care. Please bring this discharge summary with you to your next office appointment so that your provider can review it at that time. Follow-up appointments: You have a follow-up scheduled with Dr. Cohen on 10/15/21. Medications: Your medication list has been reviewed and reconciled upon discharge to ensure accuracy and continuity of care. An updated list of all your medications is included with your hospital discharge paperwork. Please review this list closely, and make note of any changes. We sent a new medication called Losartan to the pharmacy. Please take Losartan 12.5 mg (half the 25 mg tablet) daily in the morning. This will control your blood pressure and reduce your risk of stroke as well as heart attacks. I have ordered some labwork over at the [facility] laboratory since Losartan can interfere with your electrolytes, especially sodium and potassium. Please get this bloodwork done 1 week after starting Losartan. Take your medications as instructed; do not skip a dose of your medicines. Make sure all of your doctors know every medicine you are taking (including [id number] medicines, vitamins, and supplements). Call your primary care provider before taking any new medicines (including czjk-oyi-dfrwybe medicines, vitamins, and supplements), because some of these may interact with your current medications, or may make your symptoms worse. Tell your primary care provider if you cannot afford your medications. CONTACT YOUR PRIMARY CARE PROVIDER if you experience any of the following: Weakness Nausea Chest pain Lightheadedness Diarrhea Shortness of breath Difficulty following your treatment plan, or difficulty taking medications CALL 911 OR GO TO THE EMERGENCY DEPARTMENT if you experience any of the following: Sudden, severe abdominal pain or nausea/vomiting Severe chest pain, or chest pain that radiates (moves) to your jaw or arm Sudden, severe shortness of breath or difficulty breathing Thank you for allowing us to participate in your care. Pending Studies at Discharge: No Stand-Alone Forms: My [facility] Medications and DC Order Prescriptions: New losartan 25 mg tablet 25 mg PO DAILY Qty: 30 0RF Continued liothyronine [Cytomel] 25 mcg tablet 25 mcg PO TID magnesium 250 mg Tablet 0 mg PO QAM Discharge Orders: Discharge Order (Routine); Ordered 10/05/21 Ordered By: Jessica Moya Admission Data Admit Date/Time: 10/05/21 06:53 Attending Provider: Valente Cuellar Admit Provider: Sulema Maier Primary Care Provider: Leon Cohen Other Providers: Sulema Maier Other Interventions: Discharge Summary Assessment (RN) Last Done: 10/05/21 16:09 Supervising Physician Co-Signing Physician Notes Patient seen and examined with PGY-2 Dr. Moya. Agree with history, exam findings, assessment and plan of care as outlined. In brief, Lori is a 71 year old female with history of Cinda's thyroiditis and hypertension admitted with chest pain during a bowel movement found to have hypokalemia. Chest pain has not recurred since admission. 1. chest pain. troponin negligible. EKG without ischemic changes. 2. hypokalemia. Repleted. Suspect that starting losartan may help with this as well. Discussed potassium rich diet. 3. hypertension. has tried several medications but all had side effects. Rec starting low dose losartan 12.5mg. Check BPs 1-2 times per day. 4. Cinda's thyroiditis. Chronic. Stable. continue cytomel. Dispo: discharge home today. Keep follow up with PCP Dr. Cohen on October 15. I personally spent 25 minutes discharge planning for this patient. Resident Activity Tracking Resident Involvement: Resident Care Provided Care Provided: Adult [facility]
--- NOTE | 2021-10-06 06:16 | Electrocardiogram Report ---
Test Reason : Blood Pressure : / mmHG Vent. Rate : 097 BPM Atrial Rate : 097 BPM P-R Int : 176 ms QRS Dur : 086 ms QT Int : 368 ms P-R-T Axes : 058 -29 076 degrees QTc Int : 467 ms Normal sinus rhythm Possible Left atrial enlargement ST depression, consider subendocardial injury Abnormal ECG When compared with ECG of 31-AUG-2021 07:31, ST more depressed in Anterolateral leads Confirmed by Fred Barbour ([id number]) on 10/06/2021 6:16:00 AM Referred By: REFERRED SELF Confirmed By:Fred Barbour
--- NOTE | 2021-10-06 06:37 | Electrocardiogram Report ---
Test Reason : Blood Pressure : / mmHG Vent. Rate : 053 BPM Atrial Rate : 053 BPM P-R Int : 150 ms QRS Dur : 074 ms QT Int : 450 ms P-R-T Axes : 036 -28 039 degrees QTc Int : 422 ms Sinus bradycardia Possible Left atrial enlargement Left ventricular hypertrophy Nonspecific ST abnormality Abnormal ECG When compared with ECG of 05-OCT-2021 04:22, Vent. rate has decreased BY [address] less depressed in Anterolateral leads Confirmed by Fred Barbour ([id number]) on 10/06/2021 6:37:28 AM Referred By: REFERRED SELF Confirmed By:Fred Barbour
[2021-10-06] MEDS ORDERED: LIOTHYRONINE SODIUM 25 MCG TAB PO SCH (09:00)
== END 2021-10-05 16:15 | disposition home or self-care (01) ==
LOC: ED 04:07 → EDINP 04:07 → SUATTDRO 06:53 → EDINP 07:43
DX: Z88.8 Allergy status to other drugs, medicaments and biological substances; R07.89 Other chest pain; Z79.899 Other long term (current) drug therapy; I10 Essential (primary) hypertension; E87.6 Hypokalemia; Z91.041 Radiographic dye allergy status; R53.1 Weakness; Z85.3 Personal history of malignant neoplasm of breast

== ENCOUNTER 2022-01-29 18:30 | Observation (INO) ==
[2022-01-29] MEDS ORDERED: SODIUM CHLORIDE 0.9% 1000ML 1,000 ML IV ONE ×2 (18:44→22:30)
--- NOTE | 2022-01-29 18:44 | ED Triage Note ---
Date of Service January 29, 2022 History of Present Illness This patient was briefly evaluated while in triage. An abbreviated physical exam was performed. This patient is a 71-year-old Female with past medical history of chest pain, hypokalemia, anxiety, HTN, anay thyroiditis, who presents to the ED for evaluation of "a little bit of bleeding when I cough about an hour ago, a lot of abdominal stress, diarrhea, constipation (but not that much of either), I was feeling fairly faint, terrible nausea, I'm not taking well to this blood pressure medicine I've been on for over 2 weeks." Pt. has not been sleeping well. States "I've had so many tests. The only one left is a renal test, a urine test I guess." Pt. had a dental block done for dental procedure last week. Concerned there is an infection on the tongue on the left due to ongoing pain. PT. states she was feeling constriction around her heart, low back pain, aches and pains all over which are coming and going. Physical Exam VITALS: Vitals are noted on the nurse's note and reviewed by myself. GENERAL: This is a 71 year old female, in no acute distress, nondiaphoretic, well-developed well-nourished. SKIN: No obvious rashes, edema, erythema HEAD: Normocephalic atraumatic. EYES: Conjunctivae without injection, sclerae without icterus. NECK: No JVD. LUNGS: No retractions or accessory muscle use. MUSCULOSKELETAL: Normal gait. NEURO: Patient was alert and oriented to person place and time. No focal neurological deficits. Initial orders for labs and / or imaging were placed and patient was placed in the waiting area until a bed is available. Please see further documentation for the full ED course.
[2022-01-29 19:56] LABS: Basophils # (auto) 0.01 K/uL (0-0.2); Basophils % (auto) 0.4 %; Eosinophils # (auto) 0.03 K/uL (0-0.50); Eosinophils % (auto) 1.1 %; Hematocrit (blood only) 39.7 % (34.1-44.9); Immature Granulocytes # (auto) 0.01 K/uL (0.00-0.02); Immature Granulocytes % (auto) 0.4 %; Lymphocytes # (auto) 0.96 K/uL (1.2-3.4); Lymphocytes % (auto) 34.7 %; Mean Corpuscular Hemoglobin 28.1 pg (25.0-34.0); Mean Corpuscular Hgb Conc 32.7 g/dL (32.0-36.0); Mean Corpuscular Volume 85.7 fL (80.0-100.0); Mean Platelet Volume 9.7 fL (9.4-12.3); Monocytes # (auto) 0.41 K/uL (0.24-0.82); Monocytes % (auto) 14.8 %; Neutrophils # (auto) 1.35 K/uL (1.4-6.5); Neutrophils % (auto) 48.6 %; Platelet Count 219 K/uL (130-400); RDW Coefficient of Variation 15.3 % (11.5-14.5); RDW Standard Deviation 47.8 fL (36.4-46.3); Red Blood Count 4.63 M/uL (3.93-5.22); White Blood Count 2.77 K/ul (4.8-10.8)
[2022-01-29 20:09] LABS: Partial Thromboplastin Ratio 1.2; Partial Thromboplastin Time 33.5 Seconds (21.0-31.0); Prothrombin Time 10.7 Seconds (9.0-12.0)
[2022-01-29 20:26] LABS: Albumin Globulin Ratio 1.4 (0.9-2); Albumin Level 4.4 gm/dl (3.4-5.0); BUN Creatinine Ratio 24.4 (10-20); Bilirubin,Total 0.3 mg/dl (0.2-1.0); Calcium 9.6 mg/dl (8.5-10.1); Creatinine Clr Calc Pharmacy 49.6 ml/min; Est GFR (African American) 87.4 ml/min; Est GFR (Non-African American) 75.4 ml/min; Globulin 3.1 gm/dl (2.5-4.0); Potassium 3.5 mmol/L (3.5-5.1); Total Protein 7.5 gm/dl (6.0-8.3)
[2022-01-29 20:28] LABS: Troponin I High Sensitivity 7.2 pg/ml (0-14)
--- NOTE | 2022-01-29 20:29 | XRay Report ---
XR chest 1V portable HISTORY: cough COMPARISON: Chest 12/01/2021. FINDINGS: The lungs are clear. Cardiac silhouette is top normal in size. No pleural effusions. No pne umothorax. IMPRESSION: No acute process. ACT 112: Negative or not required by law. Electronically signed by: David Adan M.D. 01/29/2022 8:28 PM
[2022-01-29 20:36] LABS: Thyroid Stimulating Hormone < 0.010 uIu/ml (0.300-4.500)
--- NOTE | 2022-01-29 21:03 | Emergency Department Note ---
Impression & Plan Influenza A, Abdominal pain, epigastric, Hypertension ED Provider Note NAME: NAEEM HUMMEL AGE: 71 SEX: F : 1950 ARRIVES VIA: Walk-In INFORMANT: Patient, ED PROVIDER(S): Asim Rodriguez MD Chief Complaint: Abdominal pain, flulike symptoms HPI: Patient presents due to concern for approximately 2 days of flulike symptoms and associated abdominal pain. Patient states that her abdominal pain is intermittent and will move throughout the abdomen. The patient describes it as a pulling or stretching. Patient is had nausea but no vomiting. Patient denies any chest pains or shortness of breath. The patient was started on valsartan 3 weeks ago and the patient thinks that there may be something related to the blood pressure medication. States that she has been feeling somewhat weak. Patient has had some looser stools as well as some intermittent constipation. Patient does not take any for symptoms at home. No exacerbating or remitting factors. Patient was also concerned that she might have some associated jaw pain but the patient did have recent dental procedure ROS: See HPI for pertinent positives and negatives. A total of 10 systems were reviewed and otherwise negative. Past medical history: See below Surgical history: See below Social history: See below Physical Exam: GENERAL: NAD, wearing a mask, non-toxic. EYE EXAM: Normal conjunctiva. PERRL, no anisocoria and EOM's grossly intact w/o pain. Oropharynx: Posterior pharynx is clear with no tonsillar or uvular deviation or swelling, small area of ulceration left lateral base of the tongue. Nonbleeding. No evidence of odontogenic infection NECK: Supple, no nuchal rigidity, no adenopathy, non-tender. No signs of meningismus. FROM of the neck with good chin to chest and neck extension. No stridor. LUNGS: Clear to auscultation. Normal chest wall mechanics. HEART: NSR, no MRG. ABDOMEN: Abdomen soft, mild diffuse discomfort, normo-active bowel sounds, no masses, no rebound or guarding. BACK: No CVA TTP. SKIN: No rashes and no bruising. UPPER EXTREMITIES: Upper extremities are grossly normal. LOWER EXTREMITIES: Grossly normal, no edema. NEURO EXAM: A&O x3, cranial nerves II-XII grossly intact, normal speech, moves all 4 extremities. Differential diagnoses: Infection, dehydration, metabolic abnormality, hypo/hyperglycemia, electrolyte disturbance, anemia, hypoxia, cardiac sources, intracerebral event, toxicologic, neurologic, as well as other pathologies. Course: Patient was seen and evaluated the bedside. Full history physical exam was performed. EKG interpreted by me Normal sinus rhythm, rate of 67, normal intervals left axis deviation no ST elevations Imaging Studies: See Below Cardiac monitoring: An order was placed for continuous cardiac monitoring. The monitor shows a rate of 64 with sinus rhythm. MDM: Patient was seen due to concern for abdominal pain as well as flulike illness. The patient did have blood work completed. The patient was noted to have leukopenia with mild anemia. The patient's kidney function was unremarkable. The patient was still complaining of significant abdominal pains the patient was ordered IV morphine a CT of the abdomen pelvis was ordered. Stat read read shows that the patient does have some dilatation of the small bowel but no obvious transition point. This may be consistent with enteritis. No additional concerning findings at that time. The patient is positive for the flu. The patient was offered Tamiflu but initially declined. After reevaluating and reassessing the patient the patient thinks that her pain is significant to where she cannot go home. Patient also has had elevation in blood pressure in the patient's TSH and free T4 were very low. I did speak with the on-call hospitalist Dr. Robertson and the patient was admitted to the medicine service. 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 History of lumpectomy Family History Other No significant family history Social History Smoking Status: Never smoker Second Hand Exposure: No; Hx Alcohol Use: No Hx Substance Use: No Preferred Language: Uzbek Communication Ability: Effective Demand Generator Manager Required: No Beliefs That Will Affect Care: None Current Living Situation: Spouse Feels Safe at Home: Yes Assistive Devices: None Allergies Allergies Allergy/AdvReac Type Severity Reaction Status Date / Time carbamazepine [From Tegretol] Allergy Severe Anaphylaxis Verified 10/05/21 12:52 iodine Allergy Severe Anaphylaxis Verified 10/05/21 12:52 gluten Allergy Hives Verified 10/05/21 10:44 ibuprofen AdvReac Hypertensio Verified 10/05/21 10:44 n Home Meds Home Medications Medication Instructions Recorded Confirmed liothyronine 5 mcg tablet (Cytomel) See Rx Instructions .Route .COMPLEX 01/30/22 01/30/22 olmesartan 20 mg tablet 20 mg PO QAM 01/30/22 01/30/22 Results & Data (ED) Vital Signs Vital Signs - 24 hr 01/29/22 23:00 Pulse Rate [Apical] 60 Pulse Rhythm [Apical] Regular Pulse Strength [Apical] Normal Respiratory Rate 18 Respiratory Effort / Characteristics Non-Labored Respiratory Depth Normal Respiratory Pattern Regular Blood Pressure [Right Arm] 217/117 H Blood Pressure Mean [Right Arm] 150 Blood Pressure Position [Right Arm] Lying Pulse Oximetry 98 Oxygen Delivery Method Room Air Home Medications Current Medication List: was personally reviewed by me Laboratory Data Attestation: I reviewed the patient's lab results. Result diagrams: 01/30/22 04:25 01/30/22 04:25 Lab Results 01/29/22 01/29/22 01/29/22 Range/Units 19:45 19:45 19:45 WBC 2.77 L (4.8-10.8) K/ul RBC 4.63 (3.93-5.22) M/uL Hgb 13.0 (12.0-16.0) g/dl Hct 39.7 (34.1-44.9) % MCV 85.7 (80.0-100.0) fL MCH 28.1 (25.0-34.0) pg MCHC 32.7 (32.0-36.0) g/dL RDW Std Deviation 47.8 H (36.4-46.3) fL RDW Coeff of Kyle 15.3 H (11.5-14.5) % Plt Count 219 (130-400) K/uL MPV 9.7 (9.4-12.3) fL Immature Gran % (Auto) 0.4 % Neut % (Auto) 48.6 % Lymph % (Auto) 34.7 % [place] % (Auto) 14.8 % Eos % (Auto) 1.1 % Baso % (Auto) 0.4 % Neut # (Auto) 1.35 L (1.4-6.5) K/uL Lymph # (Auto) 0.96 L (1.2-3.4) K/uL [place] # (Auto) 0.41 (0.24-0.82) K/uL Eos # (Auto) 0.03 (0-0.50) K/uL Baso # (Auto) 0.01 (0-0.2) K/uL Immature Gran # (Auto) 0.01 (0.00-0.02) K/uL PT 10.7 (9.0-12.0) Seconds INR 1.0 (0.9-1.1) APTT 33.5 H (21.0-31.0) Seconds PTT Ratio 1.2 Sodium 140 (136-145) mmol/L Potassium 3.5 (3.5-5.1) mmol/L Chloride 102 (98-107) mmol/L Carbon Dioxide 32 (21-32) mmol/L Anion Gap 6 (3-11) BUN 19 (6-23) mg/dl Creatinine 0.78 (0.6-1.2) mg/dl Est Cr Clr Drug Dosing 49.6 ml/min Est GFR ( Amer) 87.4 ml/min Est GFR (Non-Af Amer) 75.4 ml/min BUN/Creatinine Ratio 24.4 H (10-20) Glucose 96 (70-99(Fasting)) mg/dl Calcium 9.6 (8.5-10.1) mg/dl Total Bilirubin 0.3 (0.2-1.0) mg/dl AST 26 (13-39) U/L ALT 23 (7-52) U/L Alkaline Phosphatase 73 (34-104) U/L Troponin I High Sens 7.2 (0-14) pg/ml Total Protein 7.5 (6.0-8.3) gm/dl Albumin 4.4 (3.4-5.0) gm/dl Globulin 3.1 (2.5-4.0) gm/dl Albumin/Globulin Ratio 1.4 (0.9-2) Lipase 17 (11-82) U/L Procalcitonin (0-0.5) ng/ml TSH (0.300-4.500) uIu/ml Free T4 (0.61-1.60) ng/dl Free T3 (2.3-4.2) pg/ml Urine Color Urine Appearance (Clear) Urine pH (4.5-7.5) Ur Specific [place] (1.000-1.030) Urine Protein (Negative) Urine Glucose (UA) (Negative) Urine Ketones (Negative) Urine Blood (Negative) Urine Nitrite (Negative) Urine Bilirubin (Negative) Urine Urobilinogen (Negative) Ur Leukocyte Esterase (Negative) SARS-CoV-2 (PCR) (Negative) Influenza Type A (PCR) (Neg) Influenza Type B (PCR) (Neg) RSV (RT-PCR) (Neg) 01/29/22 01/29/22 01/29/22 Range/Units 19:45 19:45 19:45 WBC (4.8-10.8) K/ul RBC (3.93-5.22) M/uL Hgb (12.0-16.0) g/dl Hct (34.1-44.9) % MCV (80.0-100.0) fL MCH (25.0-34.0) pg MCHC (32.0-36.0) g/dL RDW Std Deviation (36.4-46.3) fL RDW Coeff of Kyle (11.5-14.5) % Plt Count (130-400) K/uL MPV (9.4-12.3) fL Immature Gran % (Auto) % Neut % (Auto) % Lymph % (Auto) % [place] % (Auto) % Eos % (Auto) % Baso % (Auto) % Neut # (Auto) (1.4-6.5) K/uL Lymph # (Auto) (1.2-3.4) K/uL [place] # (Auto) (0.24-0.82) K/uL Eos # (Auto) (0-0.50) K/uL Baso # (Auto) (0-0.2) K/uL Immature Gran # (Auto) (0.00-0.02) K/uL PT (9.0-12.0) Seconds INR (0.9-1.1) APTT (21.0-31.0) Seconds PTT Ratio Sodium (136-145) mmol/L Potassium (3.5-5.1) mmol/L Chloride (98-107) mmol/L Carbon Dioxide (21-32) mmol/L Anion Gap (3-11) BUN (6-23) mg/dl Creatinine (0.6-1.2) mg/dl Est Cr Clr Drug Dosing ml/min Est GFR ( Amer) ml/min Est GFR (Non-Af Amer) ml/min BUN/Creatinine Ratio (10-20) Glucose (70-99(Fasting)) mg/dl Calcium (8.5-10.1) mg/dl Total Bilirubin (0.2-1.0) mg/dl AST (13-39) U/L ALT (7-52) U/L Alkaline Phosphatase (34-104) U/L Troponin I High Sens (0-14) pg/ml Total Protein (6.0-8.3) gm/dl Albumin (3.4-5.0) gm/dl Globulin (2.5-4.0) gm/dl Albumin/Globulin Ratio (0.9-2) Lipase (11-82) U/L Procalcitonin < 0.05 (0-0.5) ng/ml TSH < 0.010 L (0.300-4.500) uIu/ml Free T4 < 0.25 L (0.61-1.60) ng/dl Free T3 3.33 (2.3-4.2) pg/ml Urine Color Urine Appearance (Clear) Urine pH (4.5-7.5) Ur Specific [place] (1.000-1.030) Urine Protein (Negative) Urine Glucose (UA) (Negative) Urine Ketones (Negative) Urine Blood (Negative) Urine Nitrite (Negative) Urine Bilirubin (Negative) Urine Urobilinogen (Negative) Ur Leukocyte Esterase (Negative) SARS-CoV-2 (PCR) (Negative) Influenza Type A (PCR) (Neg) Influenza Type B (PCR) (Neg) RSV (RT-PCR) (Neg) 01/29/22 01/29/22 Range/Units 20:54 22:52 WBC (4.8-10.8) K/ul RBC (3.93-5.22) M/uL Hgb (12.0-16.0) g/dl Hct (34.1-44.9) % MCV (80.0-100.0) fL MCH (25.0-34.0) pg MCHC (32.0-36.0) g/dL RDW Std Deviation (36.4-46.3) fL RDW Coeff of Kyle (11.5-14.5) % Plt Count (130-400) K/uL MPV (9.4-12.3) fL Immature Gran % (Auto) % Neut % (Auto) % Lymph % (Auto) % [place] % (Auto) % Eos % (Auto) % Baso % (Auto) % Neut # (Auto) (1.4-6.5) K/uL Lymph # (Auto) (1.2-3.4) K/uL [place] # (Auto) (0.24-0.82) K/uL Eos # (Auto) (0-0.50) K/uL Baso # (Auto) (0-0.2) K/uL Immature Gran # (Auto) (0.00-0.02) K/uL PT (9.0-12.0) Seconds INR (0.9-1.1) APTT (21.0-31.0) Seconds PTT Ratio Sodium (136-145) mmol/L Potassium (3.5-5.1) mmol/L Chloride (98-107) mmol/L Carbon Dioxide (21-32) mmol/L Anion Gap (3-11) BUN (6-23) mg/dl Creatinine (0.6-1.2) mg/dl Est Cr Clr Drug Dosing ml/min Est GFR ( Amer) ml/min Est GFR (Non-Af Amer) ml/min BUN/Creatinine Ratio (10-20) Glucose (70-99(Fasting)) mg/dl Calcium (8.5-10.1) mg/dl Total Bilirubin (0.2-1.0) mg/dl AST (13-39) U/L ALT (7-52) U/L Alkaline Phosphatase (34-104) U/L Troponin I High Sens (0-14) pg/ml Total Protein (6.0-8.3) gm/dl Albumin (3.4-5.0) gm/dl Globulin (2.5-4.0) gm/dl Albumin/Globulin Ratio (0.9-2) Lipase (11-82) U/L Procalcitonin (0-0.5) ng/ml TSH (0.300-4.500) uIu/ml Free T4 (0.61-1.60) ng/dl Free T3 (2.3-4.2) pg/ml Urine Color Dark Yellow Urine Appearance Clear (Clear) Urine pH 7.0 (4.5-7.5) Ur Specific [place] 1.024 (1.000-1.030) Urine Protein Negative (Negative) Urine Glucose (UA) Negative (Negative) Urine Ketones Trace H (Negative) Urine Blood Negative (Negative) Urine Nitrite Negative (Negative) Urine Bilirubin Negative (Negative) Urine Urobilinogen Negative (Negative) Ur Leukocyte Esterase Negative (Negative) SARS-CoV-2 (PCR) NEGATIVE (Negative) Influenza Type A (PCR) Positive A* (Neg) Influenza Type B (PCR) Negative (Neg) RSV (RT-PCR) Negative (Neg) Administered Medications Discontinued Medications Acetaminophen (Acetaminophen 500 Mg Tab) 1,000 mg PO NOW STA Stop: 01/30/22 00:06 Last Admin: 01/30/22 00:18 Dose: 1,000 mg Documented By: SANDY Sodium Chloride (Nss 1000ml) 1,000 mls @ 999 mls/hr IV .Q1H1M ONE Stop: 01/29/22 19:44 Last Infusion: 01/29/22 22:22 Dose: 0 mls/hr Documented By: Admin: 01/29/22 20:57 Dose: 999 mls/hr Documented By: ZOHREH Sodium Chloride (Nss 1000ml) 1,000 mls @ 999 mls/hr IV .Q1H1M ONE Stop: 01/29/22 23:30 Last Infusion: 01/30/22 00:23 Dose: 0 mls/hr Documented By: Admin: 01/29/22 23:21 Dose: 999 mls/hr Documented By: MELANIE Sodium Chloride (Nss 1000ml) 1,000 mls @ 125 mls/hr IV .Q8H LIZETTE Stop: 01/30/22 11:19 Last Infusion: 01/30/22 12:00 Dose: 0 mls/hr Documented By: Admin: 01/30/22 04:02 Dose: 125 mls/hr Documented By: SANDY Liothyronine Sodium (Liothyronine Sodium 25 Mcg Tab) 25 mcg PO QAM COUNTS INCLUDE 234 BEDS AT THE [facility] Stop: 03/01/22 08:59 Last Admin: 01/30/22 08:04 Dose: 25 mcg Documented By: MARIANNA Metoclopramide HCl (Metoclopramide Hcl Inj 5 Mg/Ml 2 Ml Vial) 10 mg IV NOW STA Stop: 01/30/22 00:06 Last Admin: 01/30/22 00:18 Dose: 10 mg Documented By: SANDY Morphine Sulfate (Morphine Sulfate 4 Mg/Ml 1 Ml Carp\Vial) 4 mg IV NOW STA Stop: 01/29/22 22:31 Last Admin: 01/29/22 23:27 Dose: Not Given Documented By: SANDY Olmesartan (Olmesartan Medoxomil 20 Mg Tab) [facility] [place] Stop: 03/01/22 08:59 Last Admin: 01/30/22 08:04 Dose: 20 mg Documented By: MARIANNA Ondansetron HCl (Ondansetron Inj 2 Mg/Ml 2 Ml Vial) 4 mg IV NOW STA Stop: 01/29/22 22:31 Last Admin: 01/29/22 23:21 Dose: 4 mg Documented By: MELANIE Imaging Data Radiologist's Impression: Chest X-Ray 01/29/22 18:44 XR chest 1V portable HISTORY: cough COMPARISON: Chest 12/01/2021. FINDINGS: The lungs are clear. Cardiac silhouette is top normal in size. No pleural effusions. No pneumothorax. IMPRESSION: No acute process. ACT 112: Negative or not required by law. Electronically signed by: David Adan M.D. 01/29/2022 8:28 PM Chest X-Ray 01/29/22 18:44 XR chest 1V portable HISTORY: cough COMPARISON: Chest 12/01/2021. FINDINGS: The lungs are clear. Cardiac silhouette is top normal in size. No pleural effusions. No pneumothorax. IMPRESSION: No acute process. ACT 112: Negative or not required by law. Electronically signed by: David Adan M.D. 01/29/2022 8:28 PM Abdomen/Pelvis CT 01/29/22 22:30 CT OF THE ABDOMEN AND PELVIS WITHOUT CONTRAST CLINICAL HISTORY: Abdominal pain. COMPARISON STUDY: CT of the abdomen and pelvis October 23, 2021. TECHNIQUE: Axial images of the abdomen and pelvis were obtained without IV contrast. Images were reviewed in the axial, sagittal, and coronal planes. Aut omated exposure control was utilized for the study. A dose lowering technique was utilized adhering to the principles of ALARA. FINDINGS: Lung bases are unremarkable. No pneumatosis, free air or portal venous gas is present. Evaluation of the abdomen and pelvis is suboptimal on this unenhanced exam. A 1.3 cm subcapsular segment 7 hepatic lesion is similar to prior CTs. This is benign. Spleen, adrenal glands, kidneys are unremarkable with exception of a partially calcified lesion within the lower pole the left kidney which measures 1.7 cm. This is similar to CT of May 14, 2016. Relative stability favors a benign etiology. No hydronephrosis. Pancreatic glandular atrophy is noted. There is no biliary or pancreatic ductal dilatation. There are are several mildly dilated stool filled small bowel loops which measure up to 3.2 cm in caliber. There is no transition point. The appendix is not visualized. There is no right lower quadrant inflammation. Calcified fibroids are again noted. Bladder is distended. There are no urinary calculi. IMPRESSION: 1. Several mildly dilated stool-filled small bowel loops without discrete transition point. Findings suboptimally assessed on this unenhanced exam but probably within normal limits. An enteritis or partial small bowel obstruction are within the differential but considered less likely. 2. No urinary calculi or hydronephrosis. No change in a partially calcified left lower pole renal lesion. This is indeterminate but relative stability since CT of May 14, 2016 favors a benign etiology. ACT 112: Negative or not required by law. Electronically signed by: Kervin Ibarra M.D. 01/30/2022 7:35 AM Discharge Plan Visit Data Chief Complaint: Referred by Doctor Stated Complaint: REFERRED BY DOC,HEART ATTACK, COUGH BLOOD,SYNCOPE ED Provider: Asim Rodriguez Discharge Problem: Influenza A, Abdominal pain, epigastric, Hypertension Patient Disposition: Admitted As Inpatient Condition: Good Discharge Instructions Interventions: ED Discharge Assessment Last Done: 01/30/22 03:21
[2022-01-29 21:14] LABS: T4 Free Thyroxine < 0.25 ng/dl (0.61-1.60)
[2022-01-29 21:47] LABS: Influenza B virus by PCR Negative (Neg); RSV by PCR Negative (Neg); SARS CoV2 RNA(COVID-19) Ceph NEGATIVE (Negative)
[2022-01-29 22:16] LABS: Influenza A virus by PCR Positive (Neg)
[2022-01-29] MEDS ORDERED: ONDANSETRON INJ 2 MG/ML 2 ML VIAL IV STA (22:30)
[2022-01-29] MEDS ORDERED: MoRPHine SULFATE 4 MG/ML 1 ML CARP\\VIAL IV STA (22:30)
[2022-01-29 23:02] LABS: Appearance Urine Clear (Clear); Bilirubin Urine Negative (Negative); Blood Urine Negative (Negative); Color Urine Dark Yellow; Glucose Urine UA Negative (Negative); Ketones Urine Trace (Negative); Leukocyte Esterase Urine Negative (Negative); Nitrite Urine Negative (Negative); Protein Urine Negative (Negative); Specific Gravity Urine 1.024 (1.000-1.030); Urobilinogen Urine Negative (Negative)
[2022-01-30] MEDS ORDERED: METOCLOPRAMIDE HCL INJ 5 MG/ML 2 ML VIAL IV STA (00:05)
[2022-01-30] MEDS ORDERED: ACETAMINOPHEN 500 MG TAB PO STA (00:05)
[2022-01-30] MEDS ORDERED: ONDANSETRON INJ 2 MG/ML 2 ML VIAL IV PRN (00:18)
--- NOTE | 2022-01-30 00:18 | History & Physical Report ---
Date of Service January 30, 2022 Assessment & Plan (1) Influenza A: Plan: This is a 71-year-old female with a history of hypertension, breast cancer, Cinda thyroiditis, anxiety who presented to [facility] for evaluation of illness-like symptoms, including cough (with single streak of blood), nausea, and diarrhea, subsequently found to test positive for influenza A. Influenza A Patient reporting under 5 days of GI and some respiratory symptoms, also with significant fatigue and weakness -- tested positive for influenza A on arrival -- CT-A/P STAT Rad: " Prominent small bowel gas with retained material and several distended small bowel loops Findings are suspicious for enteritis. No obvious transition point ..." -- CXR: No acute findings Antiemetics as needed - Phenergan and Zofran ordered No current need for supplemental oxygen, respiratory symptoms are mild; monitor Not a candidate for Tamiflu given onset of symptoms likely >48 hours Hydration will be provided (2) Anxiety: Plan: Anxiety - History noted. Also has reports of chest pain associated with her anxiety (3) Uncontrolled hypertension: Plan: HTN Significant history of difficult to control hypertension that is currently being followed by [facility] cardiology, Dr. Mitchell Significantly elevated throughout initial ER stay, however has been intermittently distressed by her symptoms as well Continue olmesartan 20 mg daily Consider PRNs as indicated to maintain SBP < 180 (4) History of Cinda thyroiditis: Plan: History of Cinda Thyroiditis Patient reports following with a "functional doctor" in [place] for control of her hypothyroidism She reports a significant reduction in Cytomel over the past several months, from 25mcg 3 times daily to now 25 mcg every morning/5 mcg every afternoon Her TSH, free T4 are undetectably low on arrivalsuspect that this is due to suppression of thyroid axis from her Cytomel Add T3 level to further characterize of the axis Patient would benefit greatly from establishing with an substitute school nurse / starting on T4 replacement. Further discussions will be required. She is feeling quite ill at the time of admission and as such cannot engage in extensive discussion Plan Code: Full Dispo: MS PPX: SCDs Diet: Regular History of Present Illness Primary Care Provider: Leydi Be RN This is a 71-year-old female with a history of hypertension, breast cancer, Cinda thyroiditis, anxiety who presented to [facility] for evaluation of illness-like symptoms. She reports feeling weak and has somewhat of a difficult time describing her symptoms. As such, some of her symptoms are provided via interprovider communication. She says that over the past several days, she has progressively had more abdominal discomfort. She says over the p ast couple days, this is manifested as a feeling of constipation (like him backed up), but also diarrhea. She does describe feeling fatigued to me with intermittent nausea. She also says that she was coughing today and a little blood came up (describes as a single streak in water). She states that she was started on a new blood pressure medication approximately 2 weeks ago and it has not been working well for her, but can't tell me why. She thinks her symptoms have ongoing for < 5 days. She says that she has been on Cytomel for years. Over the past couple of months, they have cut down her dose significantly. She is on 25mcg qAM and 5mcg qPM. Medications reviewed and include Cytomel, Ativan, losartan, minocycline, ondansetron. On arrival in the emergency department, blood pressure 158/90 with subsequent peak to 217/117, with otherwise normal vital signs. Afebrile. Labs demonstrated leukopenia at 2.77 with associated neutropenia, lymphopenia. Mild elevation in APTT at 33.5 seconds. BUN 19/creatinine 0.78. LFTs normal. Pro- Sunny negative. TSH under 0.010, free T4 under 0.25. She is influenza A positive. CT-A/P STAT Rad: " Prominent small bowel gas with retained material a nd several distended small bowel loops Findings are suspicious for enteritis. No obvious transition point ..." She was given morphine and Zofran, alongside 2 L of normal saline. --- This documentation was created utilizing dictation software. As such, syntax, grammatical, and word-choice errors may be present. Notes are screened prior to submission in an attempt to reduce these errors. If there are any questions or concerns, please contact the author directly for clarification. Allergies Allergy/AdvReac Type Severity Reaction Status Date / Time carbamazepine [From Tegretol] Allergy Severe Anaphylaxis Verified 10/05/21 12:52 iodine Allergy Severe Anaphylaxis Verified 10/05/21 12:52 gluten Allergy Hives Verified 10/05/21 10:44 ibuprofen AdvReac Hypertensio Verified 10/05/21 10:44 n Home Medications Medication Instructions Recorded Confirmed Type liothyronine 5 mcg tablet (Cytomel) See Rx Instructions .Route .COMPLEX 01/30/22 01/30/22 History olmesartan 20 mg tablet 20 mg PO QAM 01/30/22 01/30/22 History 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 HEENT: NCAT. - Eyes - Sclera are white, anicteric, and without injection. - Mouth - MMM - Neck - supple, no appreciable JVD Cardiac: Normal rate and regular rhythm; S1 and S2 present with no murmurs, rubs, or gallops. Pulmonary: Good respiratory effort with symmetric expansion of the chest. No use of accessory muscles. Lungs were clear to auscultation bilaterally with no crackles or wheezes. Abdominal: Normoactive bowel sounds. Abdomen was soft, mildly distended, and mildly-tender to palpation. Extremities: Upper and lower extremities are warm and well perfused. No peripheral edema in the lower extremities bilaterally Psych: Well-developed, well-nourished, appropriately dressed for occasion. Behavior is cooperative and appropriate. Affect is WNL. Insight is appropriate. Results & Data Results & Data ([facility]) Vital Signs (Past 12 Hours) Vital Signs Temp Pulse Pulse Resp BP BP Pulse Ox 01/29/22 23:00 60 18 217/117 H 98 01/29/22 21:00 55 L 16 176/85 H 99 01/29/22 20:56 68 16 177/105 H 99 01/29/22 18:40 36.8 C 80 20 158/90 H 97 O2 Del Method 01/29/22 23:00 Room Air 01/29/22 21:00 Room Air 01/29/22 20:56 Room Air 01/29/22 18:40 Room Air Supervising Physician Co-Signing Physician Notes Attending addendum: I have physically seen this patient, have supervised the medical residents activities, and agree with the H&P unless as otherwise noted. Assessment and Plan: Influenza A/enteritis- Symptoms began 5 days ago, therefore not a candidate for Tamiflu Likely causing GI as opposed to pulmonary effects Phenergan and Zofran as noted IV fluids Supportive treatment Hypothyroidism- Taking Cytomel 25 mcg 3 times daily, with subsequent suppression of TSH and free T4 below detection Add free T3 Suspect T3 will be artificially low due to feedback inhibition her TSH and free T4 Patient likely is likely clinically hypothyroid, even though being pharmacologically hyperthyroid Likely contributing to some generalized symptoms Hypertension- Note is being difficult to control Follow-up with Dr. Mitchell can cardiology Would recommend adjusting thyroid dosing Remaining orders and notations as noted Resident Activity Tracking Resident Involvement: Resident Care Provided Care Provided: Adult Hospital Medicine
[2022-01-30] MEDS ORDERED: SODIUM CHLORIDE 0.9% 1000ML 1,000 ML IV SCH (03:20)
[2022-01-30] MEDS ORDERED: PROMETHAZINE HCL 6.25 MG in SODIUM CHLORIDE 0.9% 50 ML IV PRN (03:20)
[2022-01-30 04:50] LABS: Basophils # (auto) 0.01 K/uL (0-0.2); Basophils % (auto) 0.3 %; Eosinophils # (auto) 0.03 K/uL (0-0.50); Hematocrit (blood only) 34.6 % (34.1-44.9); Hemoglobin 11.2 g/dl (12.0-16.0); Immature Granulocytes # (auto) 0.02 K/uL (0.00-0.02); Immature Granulocytes % (auto) 0.7 %; Lymphocytes # (auto) 1.31 K/uL (1.2-3.4); Mean Corpuscular Hemoglobin 27.9 pg (25.0-34.0); Mean Corpuscular Hgb Conc 32.4 g/dL (32.0-36.0); Mean Corpuscular Volume 86.1 fL (80.0-100.0); Mean Platelet Volume 9.9 fL (9.4-12.3); Monocytes # (auto) 0.52 K/uL (0.24-0.82); Monocytes % (auto) 17.9 %; Neutrophils # (auto) 1.02 K/uL (1.4-6.5); Neutrophils % (auto) 35.1 %; Platelet Count 183 K/uL (130-400); RDW Coefficient of Variation 15.1 % (11.5-14.5); RDW Standard Deviation 48.1 fL (36.4-46.3); Red Blood Count 4.02 M/uL (3.93-5.22); White Blood Count 2.91 K/ul (4.8-10.8)
[2022-01-30 05:18] LABS: Albumin Globulin Ratio 1.5 (0.9-2); Albumin Level 3.4 gm/dl (3.4-5.0); BUN Creatinine Ratio 24.6 (10-20); Bilirubin,Total 0.4 mg/dl (0.2-1.0); Calcium 8.2 mg/dl (8.5-10.1); Creatinine Clr Calc Pharmacy 63.5 ml/min; Est GFR (African American) 104.2 ml/min; Est GFR (Non-African American) 89.9 ml/min; Globulin 2.3 gm/dl (2.5-4.0); Potassium 3.7 mmol/L (3.5-5.1); Total Protein 5.7 gm/dl (6.0-8.3)
--- NOTE | 2022-01-30 07:36 | CT Scan Report ---
CT OF THE ABDOMEN AND PELVIS WITHOUT CONTRAST CLINICAL HISTORY: Abdominal pain. COMPARISON STUDY: CT of the abdomen and pelvis October 23, 2021. TECHNIQUE: Axial images of the abdomen and pelvis were obtained without IV contrast. Images were revi ewed in the axial, sagittal, and coronal planes. Automated exposure control was utilized for the amrit dy. A dose lowering technique was utilized adhering to the principles of ALARA. FINDINGS: Lung bases are unremarkable. No pneumatosis, free air or portal venous gas is present. Eval uation of the abdomen and pelvis is suboptimal on this unenhanced exam. A 1.3 cm subcapsular segment 7 hepatic lesion is similar to prior CTs. This is benign. Spleen, adrenal glands, kidneys are unremar kable with exception of a partially calcified lesion within the lower pole the left kidney which william ures 1.7 cm. This is similar to CT of May 14, 2016. Relative stability favors a benign etiology. No hydronephrosis. Pancreatic glandular atrophy is noted. There is no biliary or pancreatic ductal dila tation. There are are several mildly dilated stool filled small bowel loops which measure up to 3.2 c m in caliber. There is no transition point. The appendix is not visualized. There is no right lower q uadrant inflammation. Calcified fibroids are again noted. Bladder is distended. There are no urinary calculi. IMPRESSION: 1. Several mildly dilated stool-filled small bowel loops without discrete transition point. Findings suboptimally assessed on this unenhanced exam but probably within normal limits. An enteritis or part ial small bowel obstruction are within the differential but considered less likely. 2. No urinary calculi or hydronephrosis. No change in a partially calcified left lower pole renal les ion. This is indeterminate but relative stability since CT of May 14, 2016 favors a benign etiology . ACT 112: Negative or not required by law. Electronically signed by: Kervin Ibarra M.D. 01/30/2022 7:35 AM
--- NOTE | 2022-01-30 08:09 | Hospitalist Progress Note ---
Date of Service January 30, 2022 Assessment & Plan (1) Influenza A: Plan: This is a 71-year-old female with a history of hypertension, breast cancer, Cinda thyroiditis, anxiety who presented to [facility] for evaluation of illness-like symptoms, including cough (with single streak of blood), nausea, and diarrhea, subsequently found to test positive for influenza A. Influenza A Patient reporting under 5 days of GI and some respiratory symptoms, also with significant fatigue and weakness -- tested positive for influenza A on arrival -- CT-A/P STAT Rad: " Prominent small bowel gas with retained material and several distended small bowel loops Findings are suspicious for enteritis. No obvious transition point ..." -- CXR: No acute findings Antiemetics as needed - Phenergan and Zofran ordered No current need for supplemental oxygen, respiratory symptoms are mild; monitor Not a candidate for Tamiflu given onset of symptoms likely >48 hours Hydration will be provided (2) Anxiety: Plan: Anxiety - History noted. Also has reports of chest pain associated with her anxiety (3) Uncontrolled hypertension: Plan: HTN Significant history of difficult to control hypertension that is currently being followed by [facility] cardiology, Dr. Mitchell Significantly elevated throughout initial ER stay, however has been intermittently distressed by her symptoms as well Continue olmesartan 20 mg daily Consider PRNs as indicated to maintain SBP < 180 (4) History of Cinda thyroiditis: Plan: History of Cinda Thyroiditis Patient reports following with a "functional doctor" in [place] for control of her hypothyroidism She reports a significant reduction in Cytomel over the past several months, from 25mcg 3 times daily to now 25 mcg every morning/5 mcg every afternoon Her TSH, free T4 are undetectably low on arrivalsuspect that this is due to suppression of thyroid axis from her Cytomel Add T3 level to further characterize of the axis Patient would benefit greatly from establishing with an alteration workroom supervisor / starting on T4 replacement. Further discussions will be required. She is feeling quite ill at the time of admission and as such cannot engage in extensive discussion Plan Code: Full Dispo: PPX: SCDs Diet: Regular Admission and Anticipated Discharge Date Admission Date: January 30, 2022 Results & Data Results & Data ([facility]) Vital Signs (Past 12 Hours) Vital Signs Pulse Resp BP Pulse Ox O2 Del Method 01/30/22 07:07 48 L 16 136/72 97 Room Air 01/30/22 04:00 54 L 18 124/77 98 Room Air 01/30/22 03:00 57 L 18 144/85 H 97 Room Air 01/30/22 01:00 61 18 156/91 H 98 Room Air 01/29/22 23:00 60 18 217/117 H 98 Room Air 01/29/22 21:00 55 L 16 176/85 H 99 Room Air 01/29/22 20:56 68 16 177/105 H 99 Room Air PG Care Time/CCT Total # of Minutes Spent Total Time Spent with Patient: Total time spent is greater than 50% in coordination of care (as documented) at patient's floor/unit and/or counseling patient: Coding Diagnoses Influenza A J10.1 Anxiety F41.9 Uncontrolled hypertension I10 History of Cinda thyroiditis Z86.39
[2022-01-30] MEDS ORDERED: LIOTHYRONINE SODIUM 25 MCG TAB PO SCH (09:00)
[2022-01-30] MEDS ORDERED: OLMESARTAN MEDOXOMIL 20 MG TAB PO SCH (09:00)
[2022-01-30] MEDS ORDERED: LIOTHYRONINE SODIUM 5 MCG TAB PO SCH (14:00)
--- NOTE | 2022-01-30 14:12 | Electrocardiogram Report ---
Test Reason : Blood Pressure : / mmHG Vent. Rate : 067 BPM Atrial Rate : 067 BPM P-R Int : 142 ms QRS Dur : 074 ms QT Int : 406 ms P-R-T Axes : 049 -42 046 degrees QTc Int : 429 ms Normal sinus rhythm Possible Left atrial enlargement Left axis deviation Abnormal ECG When compared with ECG of 01-DEC-2021 03:19, No significant change was found Confirmed by Leon Bardales ([id number]) on 01/30/2022 2:12:09 PM Referred By: Leydi Be Confirmed By:Leon Bardales
--- NOTE | 2022-01-30 17:54 | Discharge Summary ---
Date of Service January 30, 2022 Admission HPI Per Admitting Provider This is a 71-year-old female with a history of hypertension, breast cancer, Cinda thyroiditis, anxiety who presented to [facility] for evaluation of illness-like symptoms. She reports feeling weak and has somewhat of a difficult time describing her symptoms. As such, some of her symptoms are provided via interprovider communication. She says that over the past several days, she has progressively had more abdominal discomfort. She says over the past couple days, this is manifested as a feeling of constipation (like him backed up), but also diarrhea. She does describe feeling fatigued to me with intermittent nausea. She also says that she was coughing today and a little blood came up (describes as a single streak in water). She states that she was started on a new blood pressure medication approximately 2 weeks ago and it has not been working well for her, but can't tell me why. She thinks her symptoms have ongoing for < 5 days. She says that she has been on Cytomel for years. Over the past couple of months, they have cut down her dose significantly. She is on 25mcg qAM and 5mcg qPM. Medications reviewed and include Cytomel, Ativan, losartan, minocycline, ondansetron. On arrival in the emergency department, blood pressure 158/90 with subsequent peak to 217/117, with otherwise normal vital signs. Afebrile. Labs demonstrated leukopenia at 2.77 with associated neutropenia, lymphopenia. Mild elevation in APTT at 33.5 seconds. BUN 19/creatinine 0.78. LFTs normal. Pro- Sunny negative. TSH under 0.010, free T4 under 0.25. She is influenza A positive. CT-A/P STAT Rad: " Prominent small bowel gas with retained material and several distended small bowel loops Findings are suspicious for enteritis. No obvious transition point ..." She was given morphine and Zofran, alongside 2 L of normal saline. --- This documentation was created utilizing dictation software. As such, syntax, grammatical, and word-choice errors may be present. Notes are screened prior to submission in an attempt to reduce these errors. If there are any questions or concerns, please contact the author directly for clarification. Principal Diagnosis Influenza A Gastroenteritis secondary influenza Discharge Exam The patient appeared stable Vital signs as documented. Lungs are clear to auscultation and appear unlabored Cardiac exam, Rhythm is regular.. No murmurs, rubs or gallops. Abdominal exam reveals normal bowel sounds, soft non tender, no masses Extremities are nonedematous and both pedal pulses are normal. Neurologic exam is alert and oriented, no focal loss of strength or sensation Skin is without bruises or rashes Psychologically is without concerns for anxiety or depression. Discharge Data Allergies Allergy/AdvReac Type Severity Reaction Status Date / Time carbamazepine [From Tegretol] Allergy Severe Anaphylaxis Verified 10/05/21 12:52 iodine Allergy Severe Anaphylaxis Verified 10/05/21 12:52 gluten Allergy Hives Verified 10/05/21 10:44 ibuprofen AdvReac Hypertensio Verified 10/05/21 10:44 n Consultations 01/30/22 00:05 ED Decision to Admit Stat Ordered Studies 01/29/22 22:30 CT abd pelvis wo con Urgent Hospital Course (1) Influenza A: This is a 71-year-old female with a history of hypertension, breast cancer, Cinda thyroiditis, anxiety who presented to [facility] for evaluation of illness-like symptoms, including cough (with single streak of blood), nausea, and diarrhea, subsequently found to test positive for influenza A. Patient reports feeling greatly improved wishes to go home Influenza A Patient reporting under 5 days of GI and some respiratory symptoms, also with significant fatigue and weakness -- tested positive for influenza A on arrival -- CT-A/P STAT Rad: " Prominent small bowel gas with retained material and several distended small bowel loops Findings are suspicious for enteritis. No obvious transition point ..." -- CXR: No acute findings No current need for supplemental oxygen, respiratory symptoms are mild; monitor Not a candidate for Tamiflu given onset of symptoms likely >48 hours Patient taking p.o. well (2) Anxiety: Anxiety - History noted. Also has reports of chest pain associated with her anxiety (3) Uncontrolled hypertension: HTN Significant history of difficult to control hypertension that is currently being followed by [facility] cardiology, Dr. Mitchell Significantly elevated throughout initial ER stay, however has been intermittently distressed by her symptoms as well Continue olmesartan 20 mg daily Patient in the process of being worked up for pheochromocytoma as an outpatient (4) History of Cinda thyroiditis: History of Cinda Thyroiditis Patient reports following with a "functional doctor" in [place] for control of her hypothyroidism She reports a significant reduction in Cytomel over the past several months, from 25mcg 3 times daily to now 25 mcg every morning/5 mcg every afternoon Her TSH, free T4 are undetectably low on arrivalsuspect that this is due to suppression of thyroid axis from her Cytomel Add T3 level t in good range Patient reportedly will see a animal rehabilitator in the [place] system both for 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 Plan Patient is a full code Total Time Total Time Spent Total Time Spent (In Minutes): It required greater than 30 minutes to prepare this patient for discharge Discharge Plan Discharge Items Patient Disposition: Home - Self-Care Reason For Visit: FLU, HTN, GI DISTRESS Discharge Diagnosis: influenza A infection elevated blood pressure gastroenteritis from influenz a Condition on Discharge: Good Activity: Resume your previous activity Activity Comment: consider limiting exposure to others while ill Non-emergency contact: Primary Care Provider Call non-emergency contact if: your symptoms worsen Follow-up/Referrals: Leydi Be, RN [Primary Care Provider] - Diet: Low Sodium (2gm) Addtl Attending Provider Instructions: please eat drink and rest well avoid excessive salt intake, keep salt to less than 2000mg a day follow up for further adrenal testing cafeteria attendant to considerDenisha [phone] Pending Studies at Discharge: No Stand-Alone Forms: My [facility] [employer], Smoking Cessation Medications and DC Order Prescriptions: Continued olmesartan 20 mg tablet 20 mg PO QAM liothyronine [Cytomel] 5 mcg tablet See Rx Instructions .ROUTE .COMPLEX Rx Instructions: 25 mcg orally in the morning and 5 mg orally in afternoon Discharge Orders: Discharge Order (Routine); Ordered 01/30/22 Ordered By: Diony Han Admission Data Admit Date/Time: 01/30/22 00:18 Attending Provider: Diony Han Admit Provider: Bandar Steinberg Primary Care Provider: Leydi Be Other Providers: Nam Ward Other Interventions: Discharge Summary Assessment (RN) Last Done: 01/30/22 12:16 Coding Level of Care Code D/C DAY MANAGEMENT >30 MINS Diagnoses Influenza A J10.1 Anxiety F41.9 Uncontrolled hypertension I10 History of Cinda thyroiditis Z86.39
--- NOTE | 2022-01-30 20:46 | Billing Data ---
Date of Service January 30, 2022 Coding Level of Care Code INT OBSERVATION CARE 70M LVL 3
== END 2022-01-30 12:30 | disposition home or self-care (01) ==
LOC: EDINP 18:30 → ED 18:30 → SUATTDRO 01-30 00:18 → EDINP 01-30 03:21

== ENCOUNTER 2022-07-29 09:07 | Inpatient (IN) ==
--- NOTE | 2022-07-29 09:43 | XRay Report ---
XR chest 1V portable CLINICAL HISTORY: Chest pain, nonspecific TECHNIQUE: Single frontal radiograph of the chest was obtained. Comparison: Comparison is made to chest radiograph 02/08/2022 FINDINGS: No lines and tubes are seen. Calcified aortic knob is seen. The lungs are clear. No evidence of pleur al effusion or pneumothorax. IMPRESSION: No acute chest disease. ACT 112: Negative or not required by law. Electronically signed by: Darius Carter M.D. 07/29/2022 9:41 AM
[2022-07-29] MEDS ORDERED: ASPIRIN CHEW 324 MG PO STA (09:59)
[2022-07-29] MEDS ORDERED: NITROGLYCERIN 2% OINTMENT 30GM TUBE EXT STA (09:59)
[2022-07-29] MEDS ORDERED: NITROGLYCERIN SL 0.4 MG/TAB TAB SL STA (09:59)
--- NOTE | 2022-07-29 10:09 | Emergency Department Note ---
Impression & Plan Chest pain, Malignant hypertension ED Provider Note INFORMANT: Patient ED PROVIDER(S): Zev Young MD CHIEF COMPLAINT: Hypertension PLAN: Disposition: Admitted Condition: Good Outpatient prescription management: none Referral: None MEDICAL DECISION MAKING: Patient presented to the emergency department because of hypertension. She also was experiencing chest pain radiating to the neck and back. She was evaluated promptly after arrival. Her ECG did not reveal any acute ischemia. Her blood pressure was markedly elevated with a diastolic over 130 and systolic near 200. The patient was given aspirin and nitroglycerin. Nitropaste applied. This did resolve her chest pain as well as the neck and back pain. The patient did have improvement of her blood pressure significantly. Patient did have a mild headache and some GI upset after the nitroglycerin. She was given Tylenol. Patient's CBC and chemistry panel was unremarkable. Cardiac troponin was negati ve. Further management in the hospital will be necessary. Consultation was made with Dr. Guillaume of the [facility]. History and diagnostics were reviewed. Patient was evaluated in the ER and admitted for further management. Discussed with liability claims manager After review of the information above and other included data, I feel the patient requires admission. Triage Nursing notes reviewed and agree them. Vital Signs: reviewed and remarkable for severe hypertension Prior /Outside records reviewed: Prior hospitalization record reviewed. Influenza A. Hypertension. Differential diagnosis: Benign hypertension, hypertensive emergency, cardiovascular pathology, toxicologic, pheochromocytoma, electrolyte abnormality, renal disease, endorgan damage, as well as other pathologies. Diagnostics, as interpreted by me: ECG: Twelve-lead ECG reveals normal sinus rhythm at 66 bpm. Possible left atrial lodgment. Nonspecific ST abnormality. No ST elevation. When compared to ECG of 06 Jul 2022 there is a nonspecific ST abnormality present. Cardiac Monitoring: Cardiac monitoring ordered by me: The patient was placed on continuous cardiac monitoring and observed. It revealed a normal sinus rhythm at 61 beats per minute without ectopy or evidence of dysrhythmia. Medical decision rules: none Imaging studies: Chest x-ray. Findings: A chest x-ray was performed and revealed no pneumothorax, effusion, infiltrate, pulmonary edema, free air under the diaphragm, or wide mediastinum. Impression: No acute disease. HPI: The patient is a 71 year old female who presents to the Emergency Room with complaints of high blood pressure. This started this morning and is described as her diastolic over 100. Patient cannot remember her systolic number. Patient states her blood pressure was going low and she was taken off hydrochlorothiazide this week. The patient also notes the following associated symptoms, nausea, flushing, pain radiating up to the neck and back, overall malaise. The patient has taken no medication at home for relieving factors. Current pain is rated as 7/10. Pt denies LOC, headache, fevers, chills, diaphoresis, visual changes, neck pain, breathing difficulties, vomiting, abdominal pain, urinary symptoms, numbness, weakness, lymphadenopathy, rash, or other complaints. PAST MEDICAL HISTORY: See Below, Lyme disease, hypertension PAST SURGICAL HISTORY: See Below, SOCIAL HISTORY: See Below, HOME MEDICATIONS: See Below ALLERGIES: See Below VITALS: See Below PHYSICAL EXAMINATION: GENERAL: Awake, alert, uncomfortable-appearing, in no distress HENT: Normocephalic, atraumatic. Oropharynx unremarkable. EYES: Normal conjunctiva. Sclera non-icteric. NECK: Inspection normal. Non-tender. Supple. No nuchal rigidity. FROM. No masses. RESPIRATORY: Clear to auscultation. No wheezes. No rales. Normal respiratory effort. CARDIAC: Normal rate. Normal rhythm. No murmurs. No rubs. Extremities warm and well perfused. Pulses equal. No JVD. GI: Soft, non-distended. No tenderness to palpation. No rebound or guarding. No masses. RECTAL: Deferred. MUSCULOSKELETAL: Atraumatic. Chest examination reveals no tenderness. The back is symmetrical on inspection without obvious abnormality. There is no CVA tenderness to palpation. No joint edema. LOWER EXTREMITIES: Calves are equal size bilaterally and non-tender. No edema. No discoloration. NEURO: Normal sensorium. No sensory or motor deficits noted. SKIN: No rash or jaundice noted. 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 History of lumpectomy Family History Other No significant family history Social History Smoking Status: Never smoker Second Hand Exposure: No; Do You Dip or Chew Tobacco: No; Hx Alcohol Use: No Hx Substance Use: No Preferred Language: Bulgarian Communication Ability: Effective Web Ui Software Engineer Required: No Beliefs That Will Affect Care: None Current Living Situation: Spouse Feels Safe at Home: Yes Assistive Devices: None Allergies Allergies Allergy/AdvReac Type Severity Reaction Status Date / Time carbamazepine [From Tegretol] Allergy Severe Anaphylaxis Verified 07/29/22 15:21 Iodinated Contrast Media Allergy Severe Anaphylaxis Verified 07/29/22 15:21 iodine Allergy Severe Anaphylaxis Verified 07/29/22 15:21 gluten Allergy Intermediate Hives Verified 07/29/22 15:21 doxycycline Allergy Mild Unknown Verified 07/29/22 15:21 ibuprofen AdvReac Intermediate Hypertensio Verified 07/29/22 15:21 n Home Meds Home Medications Medication Instructions Recorded Confirmed liothyronine 5 mcg tablet (Cytomel) 25 mcg PO QAM 01/30/22 07/29/22 olmesartan 20 mg tablet 20 mg PO QAM 01/30/22 07/29/22 hydrochlorothiazide 12.5 mg capsule 12.5 mg PO DAILY 07/06/22 07/29/22 Previous Rx's Medication Instructions Recorded cefuroxime axetil 500 mg tablet 500 mg PO BID #42 tabs 07/06/22 Results & Data (ED) Vital Signs Vital Signs - 24 hr 07/29/22 09:09 07/29/22 09:23 07/29/22 09:49 Temperature 36.7 C Temperature Source Oral Pulse Rate 64 61 Pulse Rate from SpO2 Sensor Respiratory Rate 16 20 Respiratory Effort / Characteristics Non-Labored Spontaneous Respiratory Depth Normal Blood Pressure 208/118 H Blood Pressure Mean 148 Pulse Oximetry 100 98 Oxygen Delivery Method Room Air Room Air Sepsis Recent Fever Within 48 Hours No Sepsis New/Unexplained Change in Mental Status No Sepsis Action Taken by Nursing No Action Required 07/29/22 09:45 07/29/22 09:44 07/29/22 10:00 Temperature Temperature Source Pulse Rate 61 64 Pulse Rate from SpO2 Sensor 64 Respiratory Rate 12 Respiratory Effort / Characteristics Respiratory Depth Blood Pressure 198/134 H 196/110 H Blood Pressure Mean 155 150 Pulse Oximetry 98 Oxygen Delivery Method Sepsis Recent Fever Within 48 Hours Sepsis New/Unexplained Change in Mental Status Sepsis Action Taken by Nursing 07/29/22 10:00 07/29/22 10:30 07/29/22 10:30 Temperature Temperature Source Pulse Rate 56 L 57 L Pulse Rate from SpO2 Sensor 52 L Respiratory Rate 14 14 Respiratory Effort / Characteristics Respiratory Depth Blood Pressure 162/95 H Blood Pressure Mean 110 Pulse Oximetry 98 Oxygen Delivery Method Sepsis Recent Fever Within 48 Hours Sepsis New/Unexplained Change in Mental Status Sepsis Action Taken by Nursing 07/29/22 11:00 07/29/22 11:00 07/29/22 11:30 Temperature Temperature Source Pulse Rate 61 Pulse Rate from SpO2 Sensor 59 L Respiratory Rate 13 Respiratory Effort / Characteristics Respiratory Depth Blood Pressure 172/115 H 167/102 H Blood Pressure Mean 125 122 Pulse Oximetry 97 Oxygen Delivery Method Sepsis Recent Fever Within 48 Hours Sepsis New/Unexplained Change in Mental Status Sepsis Action Taken by Nursing 07/29/22 11:30 07/29/22 12:00 07/29/22 12:00 Temperature Temperature Source Pulse Rate 65 60 Pulse Rate from SpO2 Sensor 65 58 L Respiratory Rate 15 15 Respiratory Effort / Characteristics Respiratory Depth Blood Pressure 153/106 H Blood Pressure Mean 113 Pulse Oximetry 96 96 Oxygen Delivery Method Sepsis Recent Fever Within 48 Hours Sepsis New/Unexplained Change in Mental Status Sepsis Action Taken by Nursing 07/29/22 12:31 07/29/22 12:31 Temperature Temperature Source Pulse Rate 56 L Pulse Rate from SpO2 Sensor Respiratory Rate 15 Respiratory Effort / Characteristics Respiratory Depth Blood Pressure 177/88 H Blood Pressure Mean 119 Pulse Oximetry Oxygen Delivery Method Sepsis Recent Fever Within 48 Hours Sepsis New/Unexplained Change in Mental Status Sepsis Action Taken by Nursing Laboratory Data 07/29/22 09:48 07/29/22 09:48 Lab Results 07/29/22 07/29/22 07/29/22 Range/Units 09:31 09:48 09:48 WBC 3.77 L (4.8-10.8) K/ul RBC 4.70 (4.20-5.40) M/uL Hgb 14.0 (12.0-16.0) g/dl Hct 41.4 (37.0-47.0) % MCV 88.1 (80.0-100.0) fL MCH 29.8 (25.0-34.0) pg MCHC 33.8 (32.0-36.0) g/dL RDW Std Deviation 42.8 (36.4-46.3) fL RDW Coeff of Kyle 13.2 (11.5-14.5) % Plt Count 259 (130-400) K/uL MPV 9.7 (9.4-12.4) fL Immature Gran % (Auto) 0.5 % Neut % (Auto) 48.0 % Lymph % (Auto) 31.6 % [place] % (Auto) 7.7 % Eos % (Auto) 11.7 % Baso % (Auto) 0.5 % Neut # (Auto) 1.81 (1.40-6.50) K/uL Lymph # (Auto) 1.19 L (1.2-3.4) K/uL [place] # (Auto) 0.29 (0.11-0.59) K/uL Eos # (Auto) 0.44 (0-0.50) K/uL Baso # (Auto) 0.02 (0-0.2) K/uL Immature Gran # (Auto) 0.02 (0.01-0.20) K/uL Sodium 142 (136-145) mmol/L Potassium 3.5 (3.5-5.1) mmol/L Chloride 105 (98-107) mmol/L Carbon Dioxide 30 (21-32) mmol/L Anion Gap 7 (3-11) BUN 19 (6-23) mg/dl Creatinine 0.86 (0.6-1.2) mg/dl Est Cr Clr Drug Dosing Not Reportable Est GFR ( Amer) 77.7 ml/min Est GFR (Non-Af Amer) 67.0 ml/min BUN/Creatinine Ratio 22.1 H (10-20) Glucose 96 (70-99(Fasting)) mg/dl Calcium 10.3 (8.6-10.3) mg/dl Total Bilirubin 0.5 (0.2-1.0) mg/dl AST 35 (13-39) U/L ALT 28 (7-52) U/L Alkaline Phosphatase 64 (34-104) U/L Troponin I High Sens 5.5 (0-14) pg/ml Total Protein 8.2 (6.0-8.3) gm/dl Albumin 4.7 (3.4-5.0) gm/dl Globulin 3.5 (2.5-4.0) gm/dl Albumin/Globulin Ratio 1.3 (0.9-2) Lipase 18 (11-82) U/L TSH (0.300-4.500) uIu/ml Free T4 (0.61-1.60) ng/dl Lyme Disease IgG Ab (Negative) Lyme Disease IgM Ab (Negative) SARS-CoV-2, RNA, NAAT NEGATIVE (NEGATIVE) 07/29/22 07/29/22 Range/Units 09:48 09:48 WBC (4.8-10.8) K/ul RBC (4.20-5.40) M/uL Hgb (12.0-16.0) g/dl Hct (37.0-47.0) % MCV (80.0-100.0) fL MCH (25.0-34.0) pg MCHC (32.0-36.0) g/dL RDW Std Deviation (36.4-46.3) fL RDW Coeff of Kyle (11.5-14.5) % Plt Count (130-400) K/uL MPV (9.4-12.4) fL Immature Gran % (Auto) % Neut % (Auto) % Lymph % (Auto) % [place] % (Auto) % Eos % (Auto) % Baso % (Auto) % Neut # (Auto) (1.40-6.50) K/uL Lymph # (Auto) (1.2-3.4) K/uL [place] # (Auto) (0.11-0.59) K/uL Eos # (Auto) (0-0.50) K/uL Baso # (Auto) (0-0.2) K/uL Immature Gran # (Auto) (0.01-0.20) K/uL Sodium (136-145) mmol/L Potassium (3.5-5.1) mmol/L Chloride (98-107) mmol/L Carbon Dioxide (21-32) mmol/L Anion Gap (3-11) BUN (6-23) mg/dl Creatinine (0.6-1.2) mg/dl Est Cr Clr Drug Dosing Est GFR ( Amer) ml/min Est GFR (Non-Af Amer) ml/min BUN/Creatinine Ratio (10-20) Glucose (70-99(Fasting)) mg/dl Calcium (8.6-10.3) mg/dl Total Bilirubin (0.2-1.0) mg/dl AST (13-39) U/L ALT (7-52) U/L Alkaline Phosphatase (34-104) U/L Troponin I High Sens (0-14) pg/ml Total Protein (6.0-8.3) gm/dl Albumin (3.4-5.0) gm/dl Globulin (2.5-4.0) gm/dl Albumin/Globulin Ratio (0.9-2) Lipase (11-82) U/L TSH 13.341 H (0.300-4.500) uIu/ml Free T4 < 0.25 L (0.61-1.60) ng/dl Lyme Disease IgG Ab Negative (Negative) Lyme Disease IgM Ab Positive A (Negative) SARS-CoV-2, RNA, NAAT (NEGATIVE) Administered Medications Discontinued Medications Acetaminophen (Acetaminophen 500 Mg Tab) 1,000 mg PO NOW STA Stop: 07/29/22 10:59 Last Admin: 07/29/22 12:31 Dose: 1,000 mg Documented By: HS Aspirin (Aspirin Chew 324 Mg) 324 mg PO NOW STA Stop: 07/29/22 10:00 Last Admin: 07/29/22 10:11 Dose: 324 mg Documented By: RSL Sodium Chloride (Nss 1000ml) 250 mls @ 999 mls/hr IV .Q16M ONE Stop: 07/29/22 12:52 Last Admin: 07/29/22 15:02 Dose: Not Given Documented By: Nitroglycerin (Nitroglycerin Sl 0.4 Mg/Tab Tab) 0.4 mg SL NOW STA Stop: 07/29/22 10:00 Last Admin: 07/29/22 10:11 Dose: 0.4 mg Documented By: RSL Nitroglycerin (Nitroglycerin 2% Ointment 30gm Tube) 0.5 inch EXT NOW STA Stop: 07/29/22 10:00 Last Admin: 07/29/22 10:11 Dose: 0.5 inch Documented By: RSL Imaging Data Radiologist's Impression: Chest X-Ray 07/29/22 09:23 XR chest 1V portable CLINICAL HISTORY: Chest pain, nonspecific TECHNIQUE: Single frontal radiograph of the chest was obtained. Comparison: Comparison is made to chest radiograph 02/08/2022 FINDINGS: No lines and tubes are seen. Calcified aortic knob is seen. The lungs are clear. No evidence of pleural effusion or pneumothorax. IMPRESSION: No acute chest disease. ACT 112: Negative or not required by law. Electronically signed by: Darius Carter M.D. 07/29/2022 9:41 AM Discharge Plan Visit Data Chief Complaint: Hypertension Stated Complaint: HYPERTENSIVE, CHEST PAIN ED Provider: Zev Young Discharge Problem: Chest pain, Malignant hypertension Patient Disposition: Admitted As Inpatient Discharge Instructions Interventions: ED Discharge Assessment Last Done: 07/29/22 15:28
[2022-07-29 10:29] LABS: Basophils # (auto) 0.02 K/uL (0-0.2); Basophils % (auto) 0.5 %; Eosinophils # (auto) 0.44 K/uL (0-0.50); Eosinophils % (auto) 11.7 %; Hematocrit (blood only) 41.4 % (37.0-47.0); Immature Granulocytes # (auto) 0.02 K/uL (0.01-0.20); Immature Granulocytes % (auto) 0.5 %; Lymphocytes # (auto) 1.19 K/uL (1.2-3.4); Lymphocytes % (auto) 31.6 %; Mean Corpuscular Hemoglobin 29.8 pg (25.0-34.0); Mean Corpuscular Hgb Conc 33.8 g/dL (32.0-36.0); Mean Corpuscular Volume 88.1 fL (80.0-100.0); Mean Platelet Volume 9.7 fL (9.4-12.4); Monocytes # (auto) 0.29 K/uL (0.11-0.59); Monocytes % (auto) 7.7 %; Neutrophils # (auto) 1.81 K/uL (1.40-6.50); Platelet Count 259 K/uL (130-400); RDW Coefficient of Variation 13.2 % (11.5-14.5); RDW Standard Deviation 42.8 fL (36.4-46.3); White Blood Count 3.77 K/ul (4.8-10.8)
[2022-07-29 10:44] LABS: Troponin I High Sensitivity 5.5 pg/ml (0-14)
[2022-07-29 10:45] LABS: Alanine Aminotransferase 28 U/L (7-52); Albumin Globulin Ratio 1.3 (0.9-2); Albumin Level 4.7 gm/dl (3.4-5.0); Alkaline Phosphatase 64 U/L (34-104); Anion Gap 7 (3-11); Aspartate Aminotransferase 35 U/L (13-39); BUN Creatinine Ratio 22.1 (10-20); Bilirubin,Total 0.5 mg/dl (0.2-1.0); Blood Urea Nitrogen 19 mg/dl (6-23); Calcium 10.3 mg/dl (8.6-10.3); Carbon Dioxide 30 mmol/L (21-32); Chloride 105 mmol/L (98-107); Est GFR (African American) 77.7 ml/min; Globulin 3.5 gm/dl (2.5-4.0); Glucose 96 mg/dl (70-99(Fasting)); Lipase 18 U/L (11-82); Potassium 3.5 mmol/L (3.5-5.1); Sodium 142 mmol/L (136-145); Total Protein 8.2 gm/dl (6.0-8.3)
[2022-07-29] MEDS: ACETAMINOPHEN 500 MG TAB PO STA ×2 (11:32→12:31)
--- NOTE | 2022-07-29 11:48 | History & Physical Report ---
Date of Service July 29, 2022 Assessment & Plan (1) Chest pain: Plan: CP occurring this morning ~1am w/ significantly elevated BPs at home and took her HCTZ as recently discontinued and presented to ER with BPs 198/94 on arrival and given nitro/asa w/ resolution Suspect 2nd to elevated BP, but also likely relation to her thyroid (hx thyroid storm in 2005, on cytomel, recent undetectable TSH, now >13 on recent check and follows w/ functional med doc at [place] but rec f/u Dr Shah locally -- need to have thyroid removed?) Admit med tele Monitor for any arrhythmia Trend troponin (initial negative), no significant EKG changes but will repeat for recurrence of CP Nitro prn Check ECHO, A1c/lipid w/ AM labs AHA diet BP currently 177/88 in room -- got dose HCTZ at home and took her usual olmesartan. Discussed w/ cardiology prior recs spironolactone (borderline renin/latasha levels outpt w/ them) and will start 25mg in the AM. Patient reports chronic low potassium and supp at home. Discussed will monitor repat BMP but avoid additional K supp given olmesa rtan/spironolactone K sparing --Per supervising provider will hold off additional BP meds for today Also giving 250cc bolus NSS slight dehydration on exam, suspect could also be contributing - likely from diuretic w/ HCTZ Check TSH/T4/t3, lyme testing (noting recently completed 3 week course abx w/ cefuroxime per her functional med doc) Continue ASA 81mg daily for AM given ongoing symptoms at baseline if able to tolerate Heparin SQ for DVT prophylaxis. Will add pepcid for GI proph Can consider c/w Dr Mitchell if needed in AM but suspect related to BP/related to thyroid. Also will have CM navigator arrange for f/u Endo locally Given patient multiple allergies to medications, discussed consider allergy/immunology fu as well. No elevated eosinophils on labs Monitor labs on repeat (2) Hypertensive emergency: Plan: as above, BPs improved prior metanephon testing as above, not significant elevations. 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 --- following doc specializes in tick/thyroid in [place] Prior TSH undetectable but recently 9, 10, 13.6--> repeating TSH/T4 recommend having f/u locally with endocrinology for further testing as well -- consider reaching out in AM pending TSH/t4/t3 on repeat (4) Tick bite: Plan: recently completed 3wk course PO abx yesterday (5) Hypertension: Plan: as above (6) Anxiety: Plan: not on home meds borderline elevated metanephrine but not elevated to level of pheo ?related to thyroid as above -- would avoid additional medications for anxiety given her multiple ADR to medications/sensitivity (7) Abdominal pain: Plan: generalized, no guarding/rigidity at baseline. did recently complete course abx, diarrhea most recently check KUB as labs wnl/LFT w/o elevation. Lipase 18 no significant finding on exam, can consider checking for cdiff if ongoing diarrhea issues Plan inpatient admit for HTN urgency/trending troponin/ECHO/CP work-up History of Present Illness Chief Complaint: chest pain Primary Care Provider: Kiah Be DO 71yo female presented to the ER with chest pain. She was in the ER and seen and her BPs typically were running on the lower side and she had her HCTZ discontinued (had presented to ER w/ cramping/hypokalemia prior). She was awoke this morning with chest pain and checked BP which was >100 diastolic and not sure what systolic was but reportedly high. On arrival BPs 198/94, given nitro/asa and nitro paste with BP brought to the 160s and resolution of chest pain at present. She was given tylenol for GI upset from the nitro paste. Seen in C[facility], currently denying chest pain but BP still elevated to 150s/106 --> improving on most recent check to 177/88. Did also take her olmesartan this morn ing. No shortness of breath palpitations. She reports she woke up around 1-130am with chest pain and she did take her dose of HCTZ which she had previously stopped due to lower blood pressures this past week. Also ok'd to continue this stopping of such w/ Dr Mitchell during office f/u this past week. She does endorse anxiety symptoms and hard to discern if she is having anxiety prior to the events or seeing blood pressure and making these worse. Per prior review of labs, she had plasma metanephrons collected in November 2021 when she presented with anxiety/hypothyroidism/medical noncompliance. At that time, H&P reported "been to ER multiple times as she tends to wake up early AM and believes she is having an KS". She follows with Dr Mitchell for cardiology. On cytomel for hypothyroidism -- TSH prior <0.01 and was taking too much however recent TSHs elevated. She notes she is on cytomel and follows MD in [facility] who said she had been needing to suppress the TSH level and have her T4 elevated to ensure circulating thyroid but notes recent elevations she believes from antibiotic use which she just completed a 3 week course of cefuroxime for recent tick bite as unable to tolerate doxycycline. She has some abdominal discomforts but moving her bowels. No fevers at home/vomiting. She does have some LE edema, pre-tibial. Never seen local endocrinology but discussed ref to Dr Shah locally. She did not know of anyone local who could assist with cytomel dosing. She notes she has been taking 25mcg dose but breaking off some of another tablet typically to obtain "around 26mcg daily". She does have known left adrenal nodule, however per cards, they have checked renin/latasha levels in the past. ER Course: ASA 324mg x 1, Nitro SL, nitropast. Tylenol 1gm PO. CXR no acute process. EKG no ST segment elevation. Minimal inferior changes. Troponin negative on initial draw. Discussed admission for monitoring/BP control, trend troponin/ECHO/A1c/lipid in AM. Patient full code. Questions/concerns addressed at this time. Allergies Allergy/AdvReac Type Severity Reaction Status Date / Time carbamazepine [From Tegretol] Allergy Severe Anaphylaxis Verified 07/29/22 15:21 Iodinated Contrast Media Allergy Severe Anaphylaxis Verified 07/29/22 15:21 iodine Allergy Severe Anaphylaxis Verified 07/29/22 15:21 gluten Allergy Intermediate Hives Verified 07/29/22 15:21 doxycycline Allergy Mild Unknown Verified 07/29/22 15:21 ibuprofen AdvReac Intermediate Hypertensio Verified 07/29/22 15:21 n Home Medications Medication Instructions Recorded Confirmed Type liothyronine 5 mcg tablet (Cytomel) 25 mcg PO QAM 01/30/22 07/29/22 History olmesartan 20 mg tablet 20 mg PO QAM 01/30/22 07/29/22 History cefuroxime axetil 500 mg tablet 500 mg PO BID #42 tabs 07/06/22 07/29/22 Rx hydrochlorothiazide 12.5 mg capsule 12.5 mg PO DAILY 07/06/22 07/29/22 History 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 History of lumpectomy Family History Other No significant family history Social History Smoking Status: Never smoker Second Hand Exposure: No; Do You Dip or Chew Tobacco: No; Hx Alcohol Use: No Hx Substance Use: No Preferred Language: Maltese Communication Ability: Effective Air Tool Operator Required: No Beliefs That Will Affect Care: None Current Living Situation: Spouse Other Information That Helps Us Care for You: No Feels Safe at Home: Yes Assistive Devices: Glasses Physical Exam Physical Exam: General: frail elderly female sitting up in hospital bed, NAD, hat on HEENT: head normocephalic, atraumatic, enlarged thyroid, trachea midline, mm slightly DRY Resp: CTA, no w/c/r, 97% on RA CV: RRR, no significant m/r/g, trace pre-tibial edema, calves nontender. GI: +BS, slight distended, generalized tenderness without guarding/rebound MSK/Neuro: no focal deficit, no slurred speech, follows commands appropriately Psych: AOx3, anxious affect Results & Data Results & Data Vital Signs (Past 12 Hours) Vital Signs Temp Pulse Resp BP Pulse Ox O2 Del Method 07/29/22 11:00 61 13 97 07/29/22 11:00 172/115 H 07/29/22 10:30 57 L 14 07/29/22 10:30 162/95 H 07/29/22 10:00 56 L 14 98 07/29/22 10:00 196/110 H 07/29/22 09:44 64 12 198/134 H 98 07/29/22 09:45 61 07/29/22 09:49 36.7 C 07/29/22 09:23 61 20 98 Room Air 07/29/22 09:09 64 16 208/118 H 100 Room Air Laboratory Results 07/29/22 07/29/22 07/29/22 Range/Units 09:48 09:48 09:48 WBC (4.8-10.8) K/ul RBC (4.20-5.40) M/uL Hgb (12.0-16.0) g/dl Hct (37.0-47.0) % MCV (80.0-100.0) fL MCH (25.0-34.0) pg MCHC (32.0-36.0) g/dL RDW Std Deviation (36.4-46.3) fL RDW Coeff of Kyle (11.5-14.5) % Plt Count (130-400) K/uL MPV (9.4-12.4) fL Immature Gran % (Auto) % Neut % (Auto) % Lymph % (Auto) % [place] % (Auto) % Eos % (Auto) % Baso % (Auto) % Neut # (Auto) (1.40-6.50) K/uL Lymph # (Auto) (1.2-3.4) K/uL [place] # (Auto) (0.11-0.59) K/uL Eos # (Auto) (0-0.50) K/uL Baso # (Auto) (0-0.2) K/uL Immature Gran # (Auto) (0.01-0.20) K/uL Sodium (136-145) mmol/L Potassium (3.5-5.1) mmol/L Chloride (98-107) mmol/L Carbon Dioxide (21-32) mmol/L Anion Gap (3-11) BUN (6-23) mg/dl Creatinine (0.6-1.2) mg/dl Est Cr Clr Drug Dosing Est GFR ( Amer) ml/min Est GFR (Non-Af Amer) ml/min BUN/Creatinine Ratio (10-20) Glucose (70-99(Fasting)) mg/dl Calcium (8.6-10.3) mg/dl Total Bilirubin (0.2-1.0) mg/dl AST (13-39) U/L ALT (7-52) U/L Alkaline Phosphatase (34-104) U/L Troponin I High Sens (0-14) pg/ml Total Protein (6.0-8.3) gm/dl Albumin (3.4-5.0) gm/dl Globulin (2.5-4.0) gm/dl Albumin/Globulin Ratio (0.9-2) Lipase (11-82) U/L TSH Pending Lyme Disease IgG Ab Negative (Negative) Lyme IgG (Western Blot) Pending Lyme IgG 18 kDa Band Pending Lyme IgG 23 kDa Band Pending Lyme IgG 28 kDa Band Pending Lyme IgG 30 kDa Band Pending Lyme IgG 39 kDa Band Pending Lyme IgG 41 kDa Band Pending Lyme IgG 45 kDa Band Pending Lyme IgG 58 kDa Band Pending Lyme IgG 66 kDa Band Pending Lyme IgG 93 kDa Band Pending Lyme IgM Ab (WB) Pending Lyme Disease IgM Ab Positive A (Negative) Lyme IgM 23 kDa Band Pending Lyme IgM 39 kDa Band Pending Lyme IgM 41 kDa Band Pending SARS-CoV-2, RNA, NAAT (NEGATIVE) 07/29/22 07/29/22 07/29/22 Range/Units 09:48 09:48 09:31 WBC 3.77 L (4.8-10.8) K/ul RBC 4.70 (4.20-5.40) M/uL Hgb 14.0 (12.0-16.0) g/dl Hct 41.4 (37.0-47.0) % MCV 88.1 (80.0-100.0) fL MCH 29.8 (25.0-34.0) pg MCHC 33.8 (32.0-36.0) g/dL RDW Std Deviation 42.8 (36.4-46.3) fL RDW Coeff of Kyle 13.2 (11.5-14.5) % Plt Count 259 (130-400) K/uL MPV 9.7 (9.4-12.4) fL Immature Gran % (Auto) 0.5 % Neut % (Auto) 48.0 % Lymph % (Auto) 31.6 % Sen[place] % (Auto) 7.7 % Eos % (Auto) 11.7 % Baso % (Auto) 0.5 % Neut # (Auto) 1.81 (1.40-6.50) K/uL Lymph # (Auto) 1.19 L (1.2-3.4) K/uL Sen[place] # (Auto) 0.29 (0.11-0.59) K/uL Eos # (Auto) 0.44 (0-0.50) K/uL Baso # (Auto) 0.02 (0-0.2) K/uL Immature Gran # (Auto) 0.02 (0.01-0.20) K/uL Sodium 142 (136-145) mmol/L Potassium 3.5 (3.5-5.1) mmol/L Chloride 105 (98-107) mmol/L Carbon Dioxide 30 (21-32) mmol/L Anion Gap 7 (3-11) BUN 19 (6-23) mg/dl Creatinine 0.86 (0.6-1.2) mg/dl Est Cr Clr Drug Dosing Not Reportable Est GFR ( Amer) 77.7 ml/min Est GFR (Non-Af Amer) 67.0 ml/min BUN/Creatinine Ratio 22.1 H (10-20) Glucose 96 (70-99(Fasting)) mg/dl Calcium 10.3 (8.6-10.3) mg/dl Total Bilirubin 0.5 (0.2-1.0) mg/dl AST 35 (13-39) U/L ALT 28 (7-52) U/L Alkaline Phosphatase 64 (34-104) U/L Troponin I High Sens 5.5 (0-14) pg/ml Total Protein 8.2 (6.0-8.3) gm/dl Albumin 4.7 (3.4-5.0) gm/dl Globulin 3.5 (2.5-4.0) gm/dl Albumin/Globulin Ratio 1.3 (0.9-2) Lipase 18 (11-82) U/L TSH Lyme Disease IgG Ab (Negative) Lyme IgG (Western Blot) Lyme IgG 18 kDa Band Lyme IgG 23 kDa Band Lyme IgG 28 kDa Band Lyme IgG 30 kDa Band Lyme IgG 39 kDa Band Lyme IgG 41 kDa Band Lyme IgG 45 kDa Band Lyme IgG 58 kDa Band Lyme IgG 66 kDa Band Lyme IgG 93 kDa Band Lyme IgM Ab (WB) Lyme Disease IgM Ab (Negative) Lyme IgM 23 kDa Band Lyme IgM 39 kDa Band Lyme IgM 41 kDa Band SARS-CoV-2, RNA, NAAT NEGATIVE (NEGATIVE) Diagnostic Findings Chest X-Ray 07/29/22 09:23 XR chest 1V portable CLINICAL HISTORY: Chest pain, nonspecific TECHNIQUE: Single frontal radiograph of the chest was obtained. Comparison: Comparison is made to chest radiograph 02/08/2022 FINDINGS: No lines and tubes are seen. Calcified aortic knob is seen. The lungs are clear. No evidence of pleural effusion or pneumothorax. IMPRESSION: No acute chest disease. ACT 112: Negative or not required by law. Electronically signed by: Darius Carter M.D. 07/29/2022 9:41 AM Supervising Physician Co-Signing Physician Notes I personally saw and examined the patient. I verified all brewer points and agree with Azalea Foote PA-C with the following exceptions and/or additions: 71 year old female presents with chest pain and hypertension. Difficult to get clear history from patient due to our tangential conversation about lyme and her functional doctor as well as explaining different hypertension medications and their mechanisms of action. Generally she feels when her blood pressure is up and gets similar feelings previously. O/E A&Ox3, HS RRR, systolic murmur, Chest CTAB, Abdo SNT A/P Hypertensive urgency - Azalea discussed with her outpatient provider and suggested continuing olmesartan with spironolactone - this appears to be reasonable. She already took HCTZ today so can start spironolactone tomorrow. Consider PRN medication to avoid multiple ER visits. Does not appear to be acute coronary syndrome due to multiple negative troponins. Follow up with her outpatient providers on discharge. Hypothyroidism - highly suggest seeing an fsr rather than a functional doctor PG Care Time/CCT Total # of Minutes Spent Total Time Spent with Patient: Total time spent is greater than 50% in coordination of care (as documented) at patient's floor/unit and/or counseling patient: Coding Level of Care Code 40806 INT INP/OBS CARE 3/75MIN Diagnoses Chest pain R07.9 Hypertensive emergency I16.1 History of Cinda thyroiditis Z86.39 Tick bite S30.861A; W57.XXXA Encounter type: initial encounter Site of tick bite: abdominal wall Hypertension I10 Hypertension type: unspecified Anxiety F41.9 Abdominal pain R10.30 Abdominal location: lower abdomen, unspecified (4) Tick bite Encounter type: initial encounter Site of tick bite: abdominal wall Qualified Code(s): S30.861A - Insect bite (nonvenomous) of abdominal wall, initial encounter; W57.XXXA - Bitten or stung by nonvenomous insect and other nonvenomous arthropods, initial encounter (5) Hypertension Hypertension type: unspecified Qualified Code(s): I10 - Essential (primary) hypertension (7) Abdominal pain Abdominal location: lower abdomen, unspecified Qualified Code(s): R10.30 - Lower abdominal pain, unspecified
[2022-07-29 12:31] LABS: Lyme Ab IgG w/WB Rflx Negative (Negative)
[2022-07-29 12:33] LABS: Lyme Ab IgM w/WB Rflx Positive (Negative)
[2022-07-29] MEDS ORDERED: SODIUM CHLORIDE 0.9% 1000ML 250 ML IV ONE (12:37)
[2022-07-29 13:02] LABS: Thyroid Stimulating Hormone 13.341 uIu/ml (0.300-4.500)
[2022-07-29 13:44] LABS: T4 Free Thyroxine < 0.25 ng/dl (0.61-1.60)
[2022-07-29] MEDS ORDERED: hydrALAZINE HCL 20 MG/ML VIAL IV PRN (15:28)
[2022-07-29] MEDS ORDERED: NITROGLYCERIN SL 0.4 MG/TAB TAB SL PRN (15:28)
[2022-07-29] MEDS ORDERED: ONDANSETRON INJ 2 MG/ML 2 ML VIAL IV PRN (15:28)
[2022-07-29] MEDS: FAMOTIDINE 20 MG in SYRINGE 3 ML IV SCH (16:55)
[2022-07-29] MEDS ORDERED: IBUPROFEN 600 MG TAB PO PRN (18:45)
--- NOTE | 2022-07-29 19:49 | XRay Report ---
KUB CLINICAL HISTORY: Generalized abdominal pain. Constipation. FINDINGS: An AP, portable, supine abdominal radiograph is compared to study dated 05/27/2022. There is a nonobstructed abdominal bowel gas pattern. Moderate fecal retention is seen throughout the colon. N o evidence of intraperitoneal free air is seen on this supine image. A left lower pole renal calcific ation is unchanged. Calcified fibroids and phleboliths are noted in the pelvis. The skeletal structur es are osteopenic and appear intact. There is moderate lumbosacral spondylosis. IMPRESSION: No acute abnormality is identified. Electronically signed by: Bharathi Moore M.D. 07/29/2022 7:48 PM
[2022-07-29] MEDS ORDERED: ACETAMINOPHEN 325 MG TAB PO PRN (20:58)
[2022-07-29] MEDS ORDERED: PROCHLORPERAZINE 5 MG in SYRINGE 4 ML IV ONE (20:59)
[2022-07-29] MEDS: HEPARIN SOD 5,000 UNIT/0.5 ML VIAL SQ SCH (21:26)
[2022-07-29] MEDS ORDERED: diphenhydrAMINE Capsule 25 MG CAP PO ONE (23:12)
--- NOTE | 2022-07-30 07:47 | Hospitalist Progress Note ---
Date of Service July 30, 2022 Assessment & Plan Admission and Anticipated Discharge Date Admission Date: July 29, 2022 Review of Systems Review of Systems: As per HPI. Results & Data Results & Data Vital Signs (Past 12 Hours) Vital Signs Temp Pulse Resp BP BP Pulse Ox O2 Del Method 07/30/22 07:15 36.8 C 50 L 16 128/82 95 Room Air 07/29/22 22:00 Room Air 07/30/22 03:21 36.9 C 50 L 18 107/63 96 Room Air 07/29/22 22:57 36.5 C 65 18 138/81 95 Room Air
[2022-07-30 08:17] LABS: Hematocrit (blood only) 34.9 % (37.0-47.0); Hemoglobin 11.7 g/dl (12.0-16.0); Mean Corpuscular Hemoglobin 29.4 pg (25.0-34.0); Mean Corpuscular Hgb Conc 33.5 g/dL (32.0-36.0); Mean Corpuscular Volume 87.7 fL (80.0-100.0); Mean Platelet Volume 9.5 fL (9.4-12.4); Platelet Count 235 K/uL (130-400); RDW Coefficient of Variation 13.3 % (11.5-14.5); RDW Standard Deviation 42.8 fL (36.4-46.3); Red Blood Count 3.98 M/uL (4.20-5.40)
[2022-07-30 08:33] LABS: BUN Creatinine Ratio 29.9 (10-20); Calcium 9.1 mg/dl (8.6-10.3); Chol HDL Ratio 2.4 (0-5); Est GFR (African American) 67.2 ml/min; Est GFR (Non-African American) 57.9 ml/min; Magnesium 2.2 mg/dl (1.7-2.4); Potassium 3.7 mmol/L (3.5-5.1)
[2022-07-30] MEDS ORDERED: ASPIRIN 81 MG ECTAB PO SCH (09:00)
[2022-07-30] MEDS ORDERED: LOSARTAN POTASSIUM 50 MG TAB PO SCH (09:00)
[2022-07-30] MEDS ORDERED: LIOTHYRONINE SODIUM 25 MCG TAB PO SCH (09:00)
[2022-07-30] MEDS ORDERED: SPIRONOLACTONE 25 MG TAB PO SCH (09:00)
[2022-07-30 09:14] LABS: Estimated Average Glucose 117 mg/dl; Hemoglobin A1C 5.7 % (4.5-5.6)
[2022-07-30] MEDS: HEPARIN SOD 5,000 UNIT/0.5 ML VIAL SQ SCH (09:36)
[2022-07-30] MEDS: FAMOTIDINE 20 MG in SYRINGE 3 ML IV SCH (09:37)
--- NOTE | 2022-07-30 15:22 | XCELERA ---
[id number] \\[email or web address]\ISCV_PDF_Reports\[id number]
--- NOTE | 2022-07-30 15:57 | XCELERA ---
[id number] \\[email or web address]\ISCV_PDF_Reports\[id number]___[id number]
--- NOTE | 2022-07-30 18:30 | Discharge Summary ---
Date of Service July 30, 2022 Admission HPI Per Admitting Provider 71yo female presented to the ER with chest pain. She was in the ER and seen and her BPs typically were running on the lower side and she had her HCTZ discontinued (had presented to ER w/ cramping/hypokalemia prior). She was awoke this morning with chest pain and checked BP which was >100 diastolic and not sure what systolic was but reportedly high. On arrival BPs 198/94, given nitro/asa and nitro paste with BP brought to the 160s and resolution of chest pain at present. She was given tylenol for GI upset from the nitro paste. Seen in C5, currently denying chest pain but BP still elevated to 150s/106 --> improving on most recent check to 177/88. Did also take her olmesartan this morning. No shortness of breath palpitations. She reports she woke up around 1-130am with chest pain and she did take her dose of HCTZ which she had previously stopped due to lower blood pressures this past week. Also ok'd to continue this stopping of such w/ Dr Mitchell during office f/u this past week. She does endorse anxiety symptoms and hard to discern if she is having anxiety prior to the events or seeing blood pressure and making these worse. Per prior review of labs, she had plasma metanephrons collected in November 2021 when she presented with anxiety/hypothyroidism/medical noncompliance. At that time, H&P reported "been to ER multiple times as she tends to wake up early AM and believes she is having an CA". She follows with Dr Mitchell for cardiology. On cytomel for hypothyroidism -- TSH prior <0.01 and was taking too much however recent TSHs elevated. She notes she is on cytomel and follows MD in [facility] who said she had been needing to suppress the TSH level and have her T4 elevated to ensure circulating thyroid but notes recent elevations she believes from antibiotic use which she just completed a 3 week course of cefuroxime for recent tick bite as unable to tolerate doxycycline. She has some abdominal discomforts but moving her bowels. No fevers at home/vomiting. She does have some LE edema, pre-tibial. Never seen local endocrinology but discussed ref to Dr Shah locally. She did not know of anyone local who could assist with cytomel dosing. She notes she has been taking 25mcg dose but breaking off some of another tablet typically to obtain "around 26mcg daily". She does have known left adrenal nodule, however per cards, they have checked renin/latasha levels in the past. ER Course: ASA 324mg x 1, Nitro SL, nitropast. Tylenol 1gm PO. CXR no acute process. EKG no ST segment elevation. Minimal inferior changes. Troponin negative on initial draw. Discussed admission for monitoring/BP control, trend troponin/ECHO/A1c/lipid in AM. Patient full code. Questions/concerns addressed at this time. Principal Diagnosis Noncardiac chest pain, hypothyroidism Discharge Exam In general she is awake and alert pleasant no distress. HEENT normocephalic atraumatic mucous membranes moist. Breathing unlabored no accessory muscle use good effort. Skin shows no rashes no pallor icterus. Neuro without focal deficits Discharge Data Allergies Allergy/AdvReac Type Severity Reaction Status Date / Time carbamazepine [From Tegretol] Allergy Severe Anaphylaxis Verified 07/29/22 15:21 Iodinated Contrast Media Allergy Severe Anaphylaxis Verified 07/29/22 15:21 gluten Allergy Intermediate Hives Verified 07/29/22 15:21 doxycycline Allergy Mild Unknown Verified 07/29/22 15:21 ibuprofen AdvReac Intermediate Hypertensio Verified 07/29/22 15:21 n Hospital Course (1) Chest pain: CA ruled out with negative troponins and reassuring EKG. Stress test very reassuring at high heart ratenoncardiac. Whether it was related to Cytomel peaks, anxiety, or other is not yet definedbut she is safe for home. (2) History of Cinda thyroiditis: After extensive discussion, she had never been on a T4/levothyroxine type preparationher functional medicine doctor had initially put her on [employer] Expression Thyroid, she noted for a while she was doing well with that, and then whenever the manufacturing was changed she was never able to do well on it again. From there she had been switched to T3 only, and been on it for years, but definitely noticed ups and downs. The main reason she had never been on a T4 preparation was due to her holistic approach of wanting to be on something that contains T3 as well. We discussed that the theory (replacing T3 and T4) because that is what her body makes, is sound. We discussed that the problem is that in execution, pharmacology that attempts to mimic what our body does really is not up to par. I made the analogy of type 1 diabetes and insulinexplaining that with insulins we are able to mimic normal physiology much better than what we are able to do with thyroid hormone replacement. Discussed further that while levothyroxine is a T4 only preparation, my understanding is that intracellularly it is converted to T3 as her body needs. After extensive discussion, she expressed good under standing and a willingness to try a Synthroid type regimen. Doing the math, she calculated out to be about 85 mcghence the 88 mcg prescription. Would repeat TSH in about 4 weeks, and titrate the dose if needed. Would target a TSH of 0.52.5. 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 She continues to feel lethargywhile some of it is probably due to the T3 not lasting long enough and her fundamentally being hypothyroid, I also strongly suspect we may be treating episodes of stress induced elevations in blood pressure as though she has essential hypertensionand probably creating lethargy from that. Her blood pressures today were quite respectable even before her medications. We discussed this in depth, discussed the risks and benefits, but in the end we both concluded that it made the most sense to have her stop all of her blood pressure medicines for now, and follow her blood pressure 23 times a day every day under random circumstanceswriting down both her numbers and a quick sentence about physical/emotional circumstances at the time of the blood pressure reading. We discussed that it is possible she has essential hypertension, and her numbers may creep upbut given her extremely reassuring cardiac work-up, the odds of her having an actual hypertensive crisis/endorgan damage "time bomb" type episode are exceedingly low, and the odds of her having a degree of iatrogenesis from blood pressure medicines that she does not really need is fairly high. Again close follow-up with her PCP in this respect. (4) Anxiety: She has been labeled as having a lot of anxietycertainly that could be the cause of her chest pain, but also given how quickly T3 preparations kick in and wear off, it would not surprise me at all of mood symptoms might relate to fairly rapid swings in thyroid hormone/metabolism. Follow-up as an outpatient Total Time Total Time Spent Total Time Spent (In Minutes): >30 Discharge Plan Discharge Items Patient Disposition: Home - Self-Care Reason For Visit: CHEST PAIN, HTN URGENCY Discharge Diagnosis: Chest pain, elevated BP, uncontrolled Cinda's thyroiditis Activity: Resume your previous activity Non-emergency contact: Primary Care Provider Call non-emergency contact if: you have any medication questions and your symptoms worsen Follow-up/Referrals: Kiah Be DO [Primary Care Provider] - Diet: Regular Addtl Attending Provider Instructions: You were admitted to the hospital for chest pain and elevated blood pressure. We also found that your thyroid stimulating hormone level (TSH) was very high, which can indicate inadequate treatment of your hypothyroidism. You were treated with medicines to lower your blood pressure. Your symptoms have improved and we feel it is safe for you to return home. A discharge summary will be sent to your primary care physician to ensure continuity of care. Please bring this discharge summary with you to your next office appointment so that your provider can review it at that time. Follow-up appointments: We will make a follow-up appointment with Dr. eB, or one of the [facility] residents, at [facility] (on [address] [facility], across the parking lot from the hospital). If you need to contact them, their phone number is [phone]. Keep all your follow-up appointments as already scheduled. If you cannot make an appointment, notify your provider. Medications: Your medication list has been reviewed and reconciled upon discharge to ensure accuracy and continuity of care. An updated list of all your medications is included with your hospital discharge paperwork. Please review this list closely, and make note of any changes. * We sent a new medication called levothyroxine (also called Synthroid) to your pharmacy. Take levothyroxine (88mcg) one tablet daily. * We recommend that you stop taking cytomel, because levothyroxine (above) will take its place. * We recommend you stop taking your blood pressure medicines (olmesartan and hydrochlorothiazide). We also recommend taking your blood pressure about 2-3 times per day, writing down the numbers, and taking this log with you to each doctor's appointment you have. If you have any issues filling these prescriptions, please call [phone] and ask to leave a message for Dr. Kiah Be or Dr. Vladimir Fuentes. Take your medications as instructed; do not skip a dose of your medicines. Make sure all of your doctors know every medicine you are taking (including skgi-hrs-wcsokbi medicines, vitamins, and supplements). Call your primary care provider before taking any new medicines (including [id number]-[id number] medicines, vitamins, and supplements), because some of these may interact with your current medications, or may make your symptoms worse. Tell your primary care provider if you cannot afford your medications. CONTACT YOUR PRIMARY CARE PROVIDER if you experience any of the following: Worsening fatigue Anxiety Blood pressure readings with the top number higher than 200, or the lower number higher than 110 Difficulty following your treatment plan, or difficulty taking medications CALL 911 OR GO TO THE EMERGENCY DEPARTMENT if you experience any of the following: Sudden, severe abdominal pain or nausea/vomiting Severe chest pain, or chest pain that radiates (moves) to your jaw or arm Sudden, severe shortness of breath or difficulty breathing Thank you for allowing us to participate in your care. Pending Studies at Discharge: No Stand-Alone Forms: My [facility] Medications and DC Order Prescriptions: New levothyroxine 88 mcg capsule 88 mcg PO DAILY Qty: 30 0RF Discontinued olmesartan 20 mg tablet 20 mg PO QAM liothyronine [Cytomel] 5 mcg tablet 25 mcg PO QAM Rx Instructions: PER PT "THIS DOSE MORE OR LESS DAILY". hydrochlorothiazide 12.5 mg capsule 12.5 mg PO DAILY cefuroxime axetil 500 mg tablet 500 mg PO BID Qty: 42 0RF Rx Instructions: PER PT "COMPLETED A 3 MONTH COURSE YESTERDAY, 07/28/22". Discharge Orders: Discharge Order (Routine); Ordered 07/30/22 Ordered By: Asim Guthrie Admission Data Admit Date/Time: 07/29/22 12:35 Attending Provider: Bandar Paul Admit Provider: Agustín Guillaume Primary Care Provider: Kiah Be Other Interventions: Discharge Summary Assessment (RN) Last Done: 07/30/22 17:59 Coding Level of Care Code 45475 INP/OBS DISCH >30 MIN Diagnoses Chest pain R07.9 History of Cinda thyroiditis Z86.39 Hypertension I10 Hypertension type: unspecified Anxiety F41.9
--- NOTE | 2022-07-30 18:30 | Billing Data ---
Date of Service July 30, 2022 Coding Level of Care Code 50882 INP/OBS DISCH >30 MIN
--- NOTE | 2022-07-31 05:21 | Electrocardiogram Report ---
Test Reason : Blood Pressure : / mmHG Vent. Rate : 066 BPM Atrial Rate : 066 BPM P-R Int : 154 ms QRS Dur : 084 ms QT Int : 432 ms P-R-T Axes : 045 -21 075 degrees QTc Int : 452 ms Normal sinus rhythm Possible Left atrial enlargement Nonspecific ST abnormality Abnormal ECG When compared with ECG of 06-JUL-2022 08:23, Nonspecific T wave abnormality no longer evident in Inferior leads Confirmed by Fred Barbour ([id number]) on 07/31/2022 5:21:31 AM Referred By: REFERRED SELF Confirmed By:Fred Barbour
[2022-08-01 14:46] LABS: 18KDIGG Band NON-REACTIVE; 23KDIGG Band NON-REACTIVE; 23KDIGM Band REACTIVE; 28KDIGG Band NON-REACTIVE; 30KDIGG Band NON-REACTIVE; 39KDIGG Band NON-REACTIVE; 39KDIGM Band NON-REACTIVE; 41KDIGG Band REACTIVE; 41KDIGM Band NON-REACTIVE; 45KDIGG Band NON-REACTIVE; 58KDIGG Band NON-REACTIVE; 66KDIGG Band NON-REACTIVE; 93KDIGG Band NON-REACTIVE; Lyme Antibodies, WB IgG NEGATIVE (NEGATIVE); Lyme Antibodies, WB IgM NEGATIVE (NEGATIVE)
== END 2022-07-30 19:31 | disposition home or self-care (01) | DRG 305 ==
LOC: ED 09:07 → EDINP 12:35 → SUATTDRO 12:35 → 2N 15:28